=== PATIENT | male | born 1950 | race Caucasian/White ===

== ENCOUNTER 2021-05-26 00:54 | Day surgery (SDC) | payer MEDICARE, SELFPAY ==
[2021-05-18 12:48] VITALS: BMI 20.8
--- NOTE | 2021-05-18 13:02 | PC.NURSE ---
Medical hx and home medications given to me by the pt and his brother Ellis.
[2021-05-26 07:47] VITALS: BP 121/79; PULSE 93; RESP 20; TEMP 37.2; O2SAT 95
[2021-05-26] MEDS: LACTATED RINGERS 1,000 ML 150 ML IV CONT (07:58)
--- NOTE | 2021-05-26 08:02 | WPDANESEPPF ---
Anes - Initial Pre Proc Eval Procedure: Operation Date: 05/26/21 09:00 Proposed Procedures p Screening Colonoscopy - Curt Hinkle MD Date/Time: 05/26/21 08:02 Surgeon: Curt Hinkle MD Pre Op Diagnosis: neoplasm screening Patient Data Age: 70 Gender: M Height: 1.78 m Weight: 66.7 kg Last Vital Signs Temp 37.2 C 05/26/21 07:47 Pulse 93 05/26/21 07:47 Resp 20 05/26/21 07:47 BP 121/79 05/26/21 07:47 Pulse Ox 95 05/26/21 07:47 Allergies Allergy/AdvReac Type Severity Reaction Status Date / Time No Known Allergies Allergy Unknown Verified 05/26/21 07:46 Home Medications Medication Instructions Recorded Confirmed Type clorazepate dipotassium 3.75 mg 3.75 mg PO TID 08/20/19 05/18/21 History tablet fluphenazine HCl 5 mg tablet 5 mg PO TID 08/20/19 05/18/21 History albuterol sulfate 90 mcg/actuation 1 puff INHALATION Q4H PRN #6.7 gm 02/26/20 05/18/21 Rx aerosol inhaler atorvastatin 10 mg tablet 10 mg PO QHS #90 tablet 06/02/20 05/18/21 Rx phenytoin sodium extended 100 mg 100 mg PO TID #270 cap 03/02/21 05/26/21 Rx capsule fluticasone furoate 100 1 inh INHALATION DAILY #60 ea 04/13/21 05/18/21 Rx mcg-vilanterol 25 mcg/dose inhalation powder aspirin [Adult Aspirin] 81 mg PO DAILY 05/18/21 05/18/21 History glucosamine sulfate [Glucosamine] 1,000 mg PO DAILY 05/18/21 05/18/21 History multivit with min-folic acid 1 tablet PO DAILY 05/18/21 05/18/21 History [Adult Multivitamin Extra VitD3] Patient hx anesthesia problems: none Family hx anesthesia problems: none Results Review: All pre-operative results and documents have been reviewed as part of the pre-operative evaluation. [facility] Past Medical History Medical History COPD (chronic obstructive pulmonary disease) Dyslipidemia Impaired mental alertness Schizophrenia Seizure disorder Tobacco dependence Surgical History Surgical History 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 History of hemorrhoidectomy (~2013) 2013 History of hernia repair (Unknown) History of right inguinal hernia repair 2008 Social History Social History Smoking packs per day: 1 Smoking cigarettes per day: 20.0 Years smoked: 40 Smoking pack-years: 40.00 Smoking status: Current every day smoker Tobacco type: cigarettes Alcohol intake: never Substance use: never Substance use type: does not use Living arrangements: with family Spiritual care concerns: No Anes - Eval Final PreProcedure Day of Procedure 05/26/21 08:02 Patient weight: normal Heart: regular rate and rhythm Lungs: decreased breath sounds Airway: Mallampati scale class III Neurological: other (alert) Last oral intake: >/= 8 hours ASA classification: III Emergent: no Anesthetic plan: proceed Anesthesia type and monitoring: general GIVS and standard monitoring Results Review: All pre-operative results and documents have been reviewed as part of the pre-operative evaluation. Informed Consent: The patient's anesthetic plan and its attendant risks and benefits were discussed with the patient/family/POA. Questions were solicited and answers provided to the satisfaction of the patient/family/POA.
--- NOTE | 2021-05-26 09:06 | PM.HPGS ---
History of Present Illness History of Present Illness Consent: Risks, benefits, and alternatives have been discussed and questions answered. Patient agrees to proceed with procedure. Chief complaint: neoplasm screening Narrative: Everardo Diaz is a 70 year old male here because is due to have another colonoscopy. Review of Systems Constitutional: Constitutional: Denies headache(s) and Denies weakness Eyes: Eyes: Denies blurry vision ENT: Reports Normal hearing present, Denies headache(s) and Denies neck pain Cardiovascular: Cardiovascular: Denies chest pain and Denies dyspnea Respiratory: Respiratory: Denies dyspnea Gastrointestinal: Gastrointestinal: Reports no additional gastrointestinal complaints Genitourinary: Genitourinary: Denies dysuria Musculoskeletal: Musculoskeletal: Denies neck pain Integumentary/Breasts: Skin/Breast: Denies dry skin Neurologic: Reports Normal hearing present, Denies headache(s) and Denies weakness Psychiatric: Psychiatric: Denies anxiety Endocrine: Endocrine: Denies change in body appearance Hematologic/Lymphatic: Hematologic/Lymphatic: Denies easy bleeding Allergic/Immunologic: Allergic/Immunologic: Denies urticaria PMF Past Medical History Medical History (Updated 05/26/21 @ 09:06 by Curt Hinkle MD) Colon cancer screening COPD (chronic obstructive pulmonary disease) Dyslipidemia Impaired mental alertness Schizophrenia Seizure disorder Tobacco dependence Surgical History Surgical History 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 History of hemorrhoidectomy (~2013) 2013 History of hernia repair (Unknown) History of right inguinal hernia repair 2008 Social History Social History Smoking packs per day: 1 Smoking cigarettes per day: 20.0 Years smoked: 40 Smoking pack-years: 40.00 Smoking status: Current every day smoker Tobacco type: cigarettes Alcohol intake: never Substance use: never Substance use type: does not use Living arrangements: with family Spiritual care concerns: No Meds Home Medications and Allergies Home Medications Medication Instructions Recorded Confirmed Type clorazepate dipotassium 3.75 mg 3.75 mg PO TID 08/20/19 05/18/21 History tablet fluphenazine HCl 5 mg tablet 5 mg PO TID 08/20/19 05/18/21 History albuterol sulfate 90 mcg/actuation 1 puff INHALATION Q4H PRN #6.7 gm 02/26/20 05/18/21 Rx aerosol inhaler atorvastatin 10 mg tablet 10 mg PO QHS #90 tablet 06/02/20 05/18/21 Rx phenytoin sodium extended 100 mg 100 mg PO TID #270 cap 03/02/21 05/26/21 Rx capsule fluticasone furoate 100 1 inh INHALATION DAILY #60 ea 04/13/21 05/18/21 Rx mcg-vilanterol 25 mcg/dose inhalation powder aspirin [Adult Aspirin] 81 mg PO DAILY 05/18/21 05/18/21 History glucosamine sulfate [Glucosamine] 1,000 mg PO DAILY 05/18/21 05/18/21 History multivit with min-folic acid 1 tablet PO DAILY 05/18/21 05/18/21 History [Adult Multivitamin Extra VitD3] Allergies Allergy/AdvReac Type Severity Reaction Status Date / Time No Known Allergies Allergy Unknown Verified 05/26/21 07:46 Vital Signs Vital Signs - 24 hr 05/26/21 07:47 Temperature 98.9 F Pulse Rate 93 Respiratory Rate 20 Blood Pressure 121/79 Pulse Oximetry 95 Exam Const: General: comfortable and no acute distress HENMT: General nose exam: Normal nares present Eyes: General: appearance normal, both eyes and all related structures Neck: Neck: no JVD Resp: Auscultation: clear to auscultation bilaterally Cardio: Rate: regular rate Rhythm: regular rhythm GI: Inspection: non-distended GI Palp: Yes Soft to palpation Skin: General skin exam: normal color Neuro: General: gait normal Speech: normal speech Extrem: General: normal to inspection Psych: Mental Status: mental status vincent
[2021-05-26 09:31] VITALS: BP 105/68; PULSE 78; RESP 20; O2SAT 98
[2021-05-26 09:41] VITALS: BP 99/67; PULSE 81; RESP 20; O2SAT 100
[2021-05-26 09:51] VITALS: BP 125/77; PULSE 82; RESP 22; O2SAT 100
== END 2021-05-26 10:05 | disposition home or self-care (01) ==
PROVIDERS: PCP Family Medicine; Visit Provider Internal Medicine Gastroenterology
PROC: 0DJD8ZZ Inspection of Lower Intestinal Tract, Via Natural or Artificial Opening Endoscopic (ICD-10-PCS; CPT 45378; principal; 2021-05-26 09:00)
DX: Z12.11 Encounter for screening for malignant neoplasm of colon (principal); D12.3 Benign neoplasm of transverse colon; K57.30 Diverticulosis of large intestine without perforation or abscess without bleeding; K64.8 Other hemorrhoids; J44.9 Chronic obstructive pulmonary disease, unspecified; E78.5 Hyperlipidemia, unspecified; F20.9 Schizophrenia, unspecified; G40.909 Epilepsy, unspecified, not intractable, without status epilepticus; Z79.51 Long term (current) use of inhaled steroids; Z79.82 Long term (current) use of aspirin; F17.210 Nicotine dependence, cigarettes, uncomplicated
CPT/HCPCS: 45385; 88305; J2704; J7120

== ENCOUNTER → 2021-10-13 13:06 | Outpatient (CLI) | payer MEDICARE, SELFPAY ==
--- NOTE | ~2021-10-13 | CT_ITS ---
EXAMINATION: CT lung screening DATE: 10/13/2021 13:23 INDICATION: Personal history of tobacco dependence. Lung cancer screening. TECHNIQUE: Computed tomography (CT) of the chest was performed without intravenous contrast. The dose -length product was 101.27 mGy-cm. Automated exposure control and iterative reconstruction technique were employed. COMPARISON: CT dated 01/12/2017 FINDINGS: There is atherosclerosis of the aorta and coronary arteries. Moderate size hiatal hernia. N o thoracic lymphadenopathy. No significant pleural or pericardial effusion. Upper abdomen is unremark able. There is emphysema. There are small 1-2 mm nodules in the upper lobes. No pneumothorax. No foca l airspace consolidation. No acute osseous abnormality. IMPRESSION: 1. Lung-RADS category 2: Benign appearance or behavior. Continue annual screening with noncontrast lo w-dose chest CT in 12 months. Reviewed, dictated and finalized at location A. IMPRESSION: 1. Lung-RADS category 2: Benign appearance or behavior. Continue annual screeni ng with noncontrast low-dose chest CT in 12 months.
== END ==
PROVIDERS: PCP Family Medicine; Visit Provider Family Medicine
DX: Z12.2 Encounter for screening for malignant neoplasm of respiratory organs (principal); Z87.891 Personal history of nicotine dependence
CPT/HCPCS: 71271

== ENCOUNTER 2022-03-09 16:23 | Outpatient (CLI) | payer MEDICARE, SELFPAY ==
--- NOTE | ~2022-03-09 | US_ITS ---
EXAMINATION: US aorta [facility] DATE: 03/10/2022 11:09 STOVE CARRIAGE OPERATOR INDICATION: Screening for cardiovascular disorders TECHNIQUE: Grayscale, color Doppler, and pulsed Doppler images of the aorta and common iliac arteries were obtained. COMPARISON: None. FINDINGS: There is atherosclerosis. The proximal aorta measures 2.8 cm greatest sagittal dimension. The mid aor ta measures 2.5 cm greatest sagittal dimension. The distal aorta measures 1.9 cm greatest sagittal di mension. The right common internal iliac artery measures 1.2 cm. The left common iliac artery measure s 1.2 cm. IMPRESSION: 1. Moderate atherosclerosis without evidence for aortic aneurysm. Reviewed, dictated and finalized at location A. E CARRIAGE OPERATOR
== END 2022-03-09 16:24 | disposition home or self-care (01) ==
PROVIDERS: PCP Family Medicine; Visit Provider Family Medicine
DX: Z13.6 Encounter for screening for cardiovascular disorders (principal); I70.90 Unspecified atherosclerosis; Z87.891 Personal history of nicotine dependence
CPT/HCPCS: 76706

== ENCOUNTER 2023-09-06 13:21 | Outpatient (CLI) | payer MEDICARE, SELFPAY ==
--- NOTE | ~2023-09-06 | CT_ITS ---
CT Scan of the Chest without Contrast: Clinical Indication: Lung cancer screening, nicotine dependence Technique: Contiguous sections were acquired throughout the chest without intravenous contrast. Dose reduction technique was used on this scan by utilizing automated exposure control and iterative recon struction technique. The dose-length product (DLP) was 103.20 mGy-cm. COMPARISON: 10/13/2021 Findings: There is no evidence of any significant mediastinal, hilar or axillary lymphadenopathy. The mediastin al soft tissues appear normal. There is no evidence of pleural or pericardial effusion. The lungs are clear. No pulmonary nodules or infiltrates are noted. Images through the upper abdomen reveal small to small moderate hiatal hernia. Impression: Lung RADS 1: Negative. 12 month follow-up screening CT advised. Reviewed, dictated and finalized at [facility]. Impression: Lung RADS 1: Negative. 12 month follow-up screening CT advised.
== END 2023-09-06 13:22 | disposition home or self-care (01) ==
PROVIDERS: PCP Family Medicine; Visit Provider Physician Assistant
DX: Z12.2 Encounter for screening for malignant neoplasm of respiratory organs (principal); Z87.891 Personal history of nicotine dependence
CPT/HCPCS: 71271

== ENCOUNTER 2023-12-09 12:08 | Outpatient (NON) | payer MEDICARE, SELFPAY ==
[2023-12-09 12:52] LABS: Add Urine Microscopic? YES; Appearance Urine Turbid (Clear); Bacteria Urine None Seen /hpf; Bilirubin Urine Negative (Negative); Blood Urine Negative (Negative); Color Urine Yellow (Yellow); Glucose Urine UA Negative (Negative); Ketones Urine Negative (Negative); Leukocyte Esterase Ur Negative LEU/UL (Negative); Nitrate Urine Negative (Negative); Non Pathogenic Casts 0-2; Protein Urine Negative (Negative); RBC Urine 0-2 /hpf (0-2); Specific Grav Ur 1.015 (1.001-1.035); Squamous Epithelial Cell Urine None Seen /hpf (Few); Urobilinogen Urine 0.2 mg/dL (<2.0); WBC Urine 0-5 /hpf (0-3); pH Urine 7.5 (5.0-9.0)
== END 2023-12-09 12:09 | disposition home or self-care (01) ==
LOC: ANHLAB 12:11
PROVIDERS: PCP Family Medicine; Visit Provider Family Medicine
DX: R31.9 Hematuria, unspecified (principal)
CPT/HCPCS: 81001

== ENCOUNTER 2024-05-29 20:01 | Inpatient (IN) | payer MEDICARE, SELFPAY ==
[2024-05-29] VITALS (17 sets, daily range): BP systolic 117; BP diastolic 71; PULSE 94–117; RESP 21–42; TEMP 37; O2SAT 83–100
--- NOTE | ~2024-05-29 | XR_ITS ---
EXAMINATION: XR barium swallow modified DATE: 06/01/2024 15:09 INDICATION: Aspiration. TECHNIQUE: The patient was given barium-containing material of multiple consistencies to swallow by t he speech pathologist while I performed fluoroscopy. Fluoroscopy exposure time was 1.2 minutes. The n umber of fluoroscopy images saved to the PACS was 1. Dose-area product was 0.717 Gy-cm^2. FINDINGS: There is reduced tongue base retraction and laryngeal penetration. IMPRESSION: 1. Laryngeal penetration. 2. Please refer to the speech therapy report for recommendations. Reviewed, dictated and finalized at location A. [place] PLANNING MANAGER
--- NOTE | ~2024-05-29 | CT_ITS ---
CT Scan of the Chest without Contrast: Clinical Indication: COPD, hypoxia Technique: Contiguous sections were acquired throughout the chest without intravenous contrast. Dose reduction technique was used on this scan by utilizing automated exposure control and iterative recon struction technique. The dose-length product (DLP) was 167.89 mGy-cm. COMPARISON: 09/06/2023 Findings: There is no evidence of any significant mediastinal, hilar or axillary lymphadenopathy. The mediastin al soft tissues appear normal. There is no evidence of pleural or pericardial effusion. There is pneumobilia. There multifocal areas of tree-in-bud opacity and focal scattered areas of slig htly more confluent consolidation in the left upper lobe, compatible with infectious/inflammatory pro cess. Images through the upper abdomen reveal [id number] hiatal hernia. There are acute fractures of the right eighth and ninth ribs. Impression: Scattered areas of tree-in-bud opacity with several slightly more confluent areas of consolidation le ft upper lobe. Findings are compatible small airways infection with superimposed patchy left upper lo be pneumonia. Mild emphysema. Acute fractures of the right eighth and ninth ribs. Reviewed, dictated and finalized at [facility]. ERCIAL INTELLIGENCE MANAGER Impression: Scattered areas of tree-in-bud opacity with several slightly more confluent are as of consolidation left upper lobe. Findings are compatible small airways infe ction with superimposed patchy left upper lobe pneumonia. Mild emphysema. Acute fractures of the right eighth and ninth ribs.
--- NOTE | ~2024-05-29 | XR_ITS ---
EXAMINATION: XR chest 1V portable Exam Date/Time: 05/29/2024 20:36 HOME CONNECT LPN HISTORY: shortness of breath Comparison: 07/17/2008; CT lung screening 09/06/2023. RESULT: Lines, tubes, and devices: None. Lungs and pleura: Mild emphysematous/senescent change, otherwise clear. Cardiomediastinal silhouette: Stable. Other: No acute osseous or upper abdominal finding. IMPRESSION: No acute cardiopulmonary process. Reviewed, dictated and finalized at location K. CONNECT LPN
--- NOTE | ~2024-05-29 | US_ITS ---
EXAMINATION: US venous doppler [facility] DATE: 05/31/2024 11:56 INDICATION: Lower limb spasms. TECHNIQUE: Grayscale ultrasound images without and with compression and Doppler ultrasound images of the bilateral lower extremity veins were obtained. COMPARISON: None. FINDINGS: The visualized portions of right common femoral vein, profunda (deep) femoral vein, femoral vein, pop liteal vein, peroneal veins, posterior tibial veins, and greater saphenous vein outflow are patent. The visualized portions of left common femoral vein, profunda femoral vein, femoral vein, popliteal v ein, peroneal veins, posterior tibial veins, and greater saphenous vein outflow are patent. IMPRESSION: 1. No deep venous thrombosis. Reviewed, dictated and finalized at location A. [place] LAB TECHNICIAN
--- NOTE | 2024-05-29 20:29 | ECG_ITS ---
Test Date: 2024-05-29 21:27:52 Measurements Intervals [place] Rate: 90 P: 85 DE: 164 QRS: 83 QRSD: 76 T: 119 QT: 362 QTc: 445 Interpretive Statements SINUS RHYTHM DELAYED PRECORDIAL R/S TRANSITION NONSPECIFIC ST-T WAVE ABNORMALITY- HIGH LATERAL LEADS BASELINE ARTIFACT- I, II, III, AVR, AVL, AVF, V1-V6 BORDERLINE ECG No previous ECG available for comparison Electronically Signed On 05-30-2024 07:10:15 COUNTER STITCHER by Francisco Carranza D.O.
[2024-05-29 20:43] LABS: Basophils Percent Auto 0.3 % (0.2-1.2); Eosinophils Absolute Auto 0.1 K/mm3 (0-0.3); Eosinophils Percent Auto 0.8 % (0-4.4); Hematocrit 43.2 % (42.0-52.0); Hemoglobin 14.1 g/dL (14.0-18.0); Immature Granulocyte Absolute 0.06 K/mm3 (0.00-0.031); Immature Granulocyte Percent A 0.6 % (0-0.5); Lymphocytes Absolute Auto 1.22 K/mm3 (0.9-3.2); Lymphocytes Percent Auto 12.9 % (18.3-44.2); Mean Corpuscular HGB Conc 32.6 g/dl (32-36); Mean Corpuscular Hemoglobin 32.3 pg (26-34); Mean Corpuscular Volume 99.1 fl (80-100); Mean Platelet Volume 9.1 fl (7.4-10.4); Monocytes Absolute Auto 1.3 K/mm3 (0.1-0.6); Monocytes Percent Auto 13.4 % (2.6-8.5); Neutrophils Absolute Auto 6.8 K/mm3 (1.3-6.7); Platelet Count Result 446 k/mm3 (150-375); Red Blood Count 4.36 M/mm3 (4.6-6.20); Red Cell Distribution Width 12.6 % (11.5-14.5); White Blood Count 9.5 K/mm3 (4.5-10.0)
[2024-05-29 20:51] LABS: Alanine Aminotransferase 38 U/L (6-50); Albumin Level 3.5 g/dL (3.5-5.1); Alkaline Phosphatase 101 U/L (38-126); Anion Gap 7 mmol/L (4-12); Aspartate Amino Transferase 41 U/L (17-59); Bilirubin,Total 0.5 mg/dL (0.2-1.3); Blood Urea Nitrogen 21 mg/dL (9-20); Calcium 8.8 mg/dL (8.4-10.2); Carbon Dioxide 35 mmol/L (22-30); Chloride 102 mmol/L (98-107); Estimated CRCL calculation 59 ml/min; Estimated Glomerular Filt Rate > 60; Glucose 149 mg/dL (65-110); Potassium 4.2 mmol/L (3.4-5.0); Sodium 144 mmol/L (137-145)
[2024-05-29 21:16] LABS: Influenza A QL RT-PCR Positive (Negative); Influenza B QL RT-PCR Negative (Negative); RSV RNA, RT-PCR Negative (Negative); SARS-CoV-2 RNA PCR Negative (Negative)
--- NOTE | 2024-05-29 21:52 | ED.GENADULT ---
HPI - General Adult General Chief complaint: Shortness of Breath/Dyspnea Stated complaint: SOB, weak, cough and congestion Time Seen by Provider: 05/29/24 20:26 History of Present Illness HPI narrative: 73-year-old male with history heavy smoking, 1-2 packs a day presents to the emergency department for evaluation for worsening shortness of breath over the last few days. Family states that the shortness of breath worsened today. Upon arrival emergency department patient was saturating 84% on room air. Patient is saturating better on 2 L. patient does have tachypnea. Patient denies any chest pain. Patient did have a fall approximately 1 week ago and injured his right ribs. Family states patient did just complete a course of steroids and a Z-Ankush. Related Data Home Medications ?Medication ?Instructions ?Recorded ?Confirmed ?Last Taken ?Type clorazepate dipotassium 3.75 mg 3.75 mg PO TID 08/20/19 05/29/24 05/29/24 History tablet fluphenazine HCl 5 mg tablet 5 mg PO TID 08/20/19 05/29/24 05/29/24 History aspirin 81 mg tablet 81 mg PO DAILY 05/18/21 05/29/24 05/29/24 History glucosamine sulfate 500 mg tablet 1,000 mg PO DAILY 05/18/21 05/29/24 05/29/24 History (Glucosamine) multivitamin with minerals-folic 1 tablet PO DAILY 05/18/21 05/29/24 05/29/24 History acid 200 mcg chewable tablet vitamin K2 45 mcg capsule 45 mcg PO DAILY 03/02/23 05/29/24 05/29/24 History Allergies Allergy/AdvReac Type Severity Reaction Status Date / Time No Known Allergies Allergy Unknown Verified 05/29/24 20:02 Review of Systems Review of Systems: All systems reviewed & are unremarkable except as noted in HPI and below PMFSH Past Medical History Medical History Elevated PSA Impaired mental alertness Dyslipidemia Schizophrenia Tobacco dependence Seizure disorder COPD (chronic obstructive pulmonary disease) Surgical History Surgical History History of right inguinal hernia repair 2008 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 History of hemorrhoidectomy (~2013) 2013 History of hernia repair (Unknown) Social History Social History Smoking packs per day: 1 Smoking cigarettes per day: 20.0 Years smoked: 55 Smoking pack-years: 55.00 Smoking status: Current every day smoker Tobacco type: cigarettes Alcohol intake: never Substance use: never Substance use type: does not use Lack of Transportation: No Lack of Food: Never True Current Housing: I Have Housing Concerned About Future Housing: No Difficulty Paying Gas/Electric Bills: No Difficulty Paying for Meds: No Currently Unemployed: No Education: High School Diploma/GED Difficulty w/ Childcare or Family Care: No Living arrangements: with family Occupation/Education: unemployed Gender identity (if verbalized by the patient): Male Spiritual care concerns: No Exam Narrative: APPEARANCE: Ill-appearing HEAD: normocephalic, atraumatic. EYES: PERRLA/EOMI, conjunctivae clear. NOSE: Normal no drainage EARS:TMS clear with good light reflex. THROAT: Pharynx clear, no exudate. NECK: Supple. No adenopathy, no masses. RESPIRATORY: Wheezing in all lung clarke CARDIOVASCULAR: Regular rate and rhythm without murmurs rubs or gallops. ABDOMINAL: Soft, nontender, nondistended, normal bowel sounds MUSCULOSKELETAL: Moves all extremities. Strength/ROM intact, No edema, No calf tenderness. NEURO: Alert. Cranial nerves II through XII intact. Grossly intact SKIN: Warm, dry. Normal Color Course Vital Signs Vital signs: Vital Signs Temperature 98.6 F 05/29/24 20:10 Pulse Rate 104 H 05/29/24 20:10 Respiratory Rate 21 H 05/29/24 20:10 Blood Pressure 117/71 05/29/24 20:10 Pulse Oximetry 84 L 05/29/24 20:10 Temperature 98.1 F 05/30/24 01:09 Pulse Rate 117 H 05/30/24 06:28 Respiratory Rate 27 H 05/30/24 06:28 Blood Pressure 160/100 H 05/30/24 03:19 Pulse Oximetry 92 05/30/24 06:28 Oxygen Delivery BiPAP 05/30/24 06:28 Oxygen Flow Rate 4 05/29/24 20:22 Medical Decision Making MDM Narrative Medical decision making narrative: 73-year-old male with history of heavy smoking with no oxygen requirement at home presents emergency department today for complaint worsening shortness of breath. Patient was 84% on room air but did improve on 4 L. patient was treated with 5 mg of nebulized albuterol and this did open up his lungs actually worsened the son of his breathing. Patient was treated with a 2nd 5 mg of nebulized albuterol and an ABG did show that he had a pCO2 of 56.9. Patient was placed on BiPAP 14 of 7 and was able a titrated down to 24% FiO2. On re-evaluation patient reports he does feel improved and patient's work of breathing has improved. Patient is positive for influenza a, chest x-ray shows no acute cardiopulmonary abnormality but CT scan was ordered. CT scan did show a rib fractures but these are not acute. Differential Diagnosis Differential Diagnosis: COVID, RSV, influenza, pneumonia, COPD Vital Signs Vital Signs: Vital Signs Temperature 98.6 F 05/29/24 20:10 Pulse Rate 104 H 05/29/24 20:10 Respiratory Rate 21 H 05/29/24 20:10 Blood Pressure 117/71 05/29/24 20:10 Pulse Oximetry 84 L 05/29/24 20:10 Temperature 98.1 F 05/30/24 01:09 Pulse Rate 117 H 05/30/24 06:28 Respiratory Rate 27 H 05/30/24 06:28 Blood Pressure 160/100 H 05/30/24 03:19 Pulse Oximetry 92 05/30/24 06:28 Oxygen Delivery BiPAP 05/30/24 06:28 Oxygen Flow Rate 4 05/29/24 20:22 Lab Data Lab results reviewed: Yes I reviewed the patient's lab results. 05/29/24 20:31 05/30/24 01:59 Labs: Lab Results 05/29/24 05/29/24 05/29/24 Range/Units 20:21 20:31 23:12 WBC 9.5 (4.5-10.0) K/mm3 RBC 4.36 L (4.6-6.20) M/mm3 Hgb 14.1 (14.0-18.0) g/dL Hct 43.2 (42.0-52.0) % MCV 99.1 (80-100) fl MCH 32.3 (26-34) pg MCHC 32.6 (32-36) g/dl RDW 12.6 (11.5-14.5) % Plt Count 446 H (150-375) k/mm3 MPV 9.1 (7.4-10.4) fl Immature Gran % (Auto) 0.6 H (0-0.5) % Neut % (Auto) 72.0 (45.5-73.1) % Lymph % (Auto) 12.9 L (18.3-44.2) % [place] % (Auto) 13.4 H (2.6-8.5) % Eos % (Auto) 0.8 (0-4.4) % Baso % (Auto) 0.3 (0.2-1.2) % Lymph # (Auto) 1.22 (0.9-3.2) K/mm3 [place] # (Auto) 1.3 H (0.1-0.6) K/mm3 Eos # (Auto) 0.1 (0-0.3) K/mm3 Baso # (Auto) 0.0 (0.0-0.1) K/mm3 Abs Immat Gran (auto) 0.06 H (0.00-0.031) K/mm3 Absolute Neuts (auto) 6.8 H (1.3-6.7) K/mm3 Absolute Nucleated RBC 0.000 (0.0-0.012) K/mm3 Nucleated RBC % 0.0 (0.0-0.2) % Methemoglobin 0.1 (0-1.5) %THb Sodium 144 (137-145) mmol/L Potassium 4.2 (3.4-5.0) mmol/L Chloride 102 (98-107) mmol/L Carbon Dioxide 35 H (22-30) mmol/L Anion Gap 7 (4-12) mmol/L BUN 21 H (9-20) mg/dL Creatinine 0.91 (0.7-1.3) mg/dL Estim Creat Clear Calc 59 ml/min Estimated GFR > 60 (59 - ) Glucose 149 H (65-110) mg/dL Lactic Acid (0.7-2.0) mmol/L Calcium 8.8 (8.4-10.2) mg/dL Total Bilirubin 0.5 (0.2-1.3) mg/dL AST 41 (17-59) U/L ALT 38 (6-50) U/L Alkaline Phosphatase 101 (38-126) U/L NT-Pro-B Natriuret Pep 740 H (19.9-100) pg/mL Total Protein 7.0 (6.3-8.2) g/dL Albumin 3.5 (3.5-5.1) g/dL Nasal MRSA (PCR) Not detected (NOT DETECTE) Influenza A (RT-PCR) Positive A (Negative) Influenza B (RT-PCR) Negative (Negative) RSV (RT-PCR) Negative (Negative) SARS-CoV-2 RNA (RT-PCR) Negative (Negative) 05/30/24 Range/Units 01:59 WBC (4.5-10.0) K/mm3 RBC (4.6-6.20) M/mm3 Hgb (14.0-18.0) g/dL Hct (42.0-52.0) % MCV (80-100) fl MCH (26-34) pg MCHC (32-36) g/dl RDW (11.5-14.5) % Plt Count (150-375) k/mm3 MPV (7.4-10.4) fl Immature Gran % (Auto) (0-0.5) % Neut % (Auto) (45.5-73.1) % Lymph % (Auto) (18.3-44.2) % [place] % (Auto) (2.6-8.5) % Eos % (Auto) (0-4.4) % Baso % (Auto) (0.2-1.2) % Lymph # (Auto) (0.9-3.2) K/mm3 [place] # (Auto) (0.1-0.6) K/mm3 Eos # (Auto) (0-0.3) K/mm3 Baso # (Auto) (0.0-0.1) K/mm3 Abs Immat Gran (auto) (0.00-0.031) K/mm3 Absolute Neuts (auto) (1.3-6.7) K/mm3 Absolute Nucleated RBC (0.0-0.012) K/mm3 Nucleated RBC % (0.0-0.2) % Methemoglobin (0-1.5) %THb Sodium (137-145) mmol/L Potassium (3.4-5.0) mmol/L Chloride (98-107) mmol/L Carbon Dioxide (22-30) mmol/L Anion Gap (4-12) mmol/L BUN (9-20) mg/dL Creatinine 0.74 (0.7-1.3) mg/dL Estim Creat Clear Calc 72 ml/min Estimated GFR > 60 (59 - ) Glucose (65-110) mg/dL Lactic Acid 1.2 (0.7-2.0) mmol/L Calcium (8.4-10.2) mg/dL Total Bilirubin (0.2-1.3) mg/dL AST (17-59) U/L ALT (6-50) U/L Alkaline Phosphatase (38-126) U/L NT-Pro-B Natriuret Pep (19.9-100) pg/mL Total Protein (6.3-8.2) g/dL Albumin (3.5-5.1) g/dL Nasal MRSA (PCR) (NOT DETECTE) Influenza A (RT-PCR) (Negative) Influenza B (RT-PCR) (Negative) RSV (RT-PCR) (Negative) SARS-CoV-2 RNA (RT-PCR) (Negative) ABG Data ABG results: 05/29/24 23:12 Puncture Site Left radial ABG pH 7.323 L ABG pCO2 56.9 H ABG pO2 73.5 L ABG PO2/FiO2 Ratio 2.63 ABG HCO3 28.9 H ABG O2 Saturation 93.4 L ABG O2 Content 16.6 ABG Base Excess 1.7 A-a Gradient 59.0 Oxyhemoglobin 92.6 Carboxyhemoglobin 0.6 Reduced Hemoglobin 6.7 H Total Hemoglobin 12.7 O2 Delivery Device Nasal cannula O2 Liters/Min 2.0 FiO2 28 Imaging Data Radiologist's impression: Overnight read CT chest without contrast Impression: Nondisplaced fractures of the right 8th and 9th ribs. Minimal patchy consolidations at the lung bases and inferior left upper lobe concerning for mild pneumonia. Critical Care Time Critical Care Time Critical Care Time: Yes Total Critical Care Time: 35 Discharge Plan Discharge Clinical Impression: Pneumonia, Closed rib fracture, Influenza A COPD (chronic obstructive pulmonary disease) Qualifiers: COPD type: unspecified COPD Qualified Code(s): J44.9 - Chronic obstructive pulmonary disease, unspecified Patient Disposition: Still a Patient Condition: Serious
[2024-05-29] MEDS: ALBUTEROL SULFATE NEB 2.5 MG/3 ML INH 5 MG INHALATION ×2 (22:04→23:10)
[2024-05-29] MEDS: SODIUM CHLORIDE 0.9% IV 1,000 ML 999 ML IV CONT (22:17)
--- NOTE | 2024-05-29 22:58 | PC.NURSE ---
ED respiratory contacted per EDP Dr. Diaz orders for additional breathing tx at this time.
[2024-05-29] MEDS: CEFEPIME 2 GM/NS 50 ML 2 GM/50 ML BAG IVPB (22:59)
[2024-05-29 23:23] LABS: Base Excess ABG 1.7 mEq/l (+/-2.0); Carboxyhemoglobin 0.6 % THb (0-2.0); Fractional Inspired Oxygen 28 %; HCO3 ABG 28.9 mEq/l (22.0-26.0); Methemoglobin ABG 0.1 %THb (0-1.5); Oxygen Content ABG 16.6 %vol (16.0-22.0); Oxygen Saturation ABG 93.4 % (95.0-100.0); Oxyhemoglobin 92.6 % THb (90.0-100.0); PCO2 ABG 56.9 mmHg (35.0-45.0); PO2 ABG 73.5 mmHg (80.0-100.0); PO2 FiO2 Ratio Arterial Blood 2.63 %; Reduced Hemoglobin 6.7 %THb (0-5.0); Total Hemoglobin 12.7 g/dL (12.0-18.0); pH ABG 7.323 (7.350-7.450)
[2024-05-29 23:25] LABS: Device NASAL CANNULA; Modified Allen's Test Pass; Site Drawn LEFT RADIAL
[2024-05-29] MEDS: VANCOMYCIN 1,750 MG/NS 500 ML 1,750 MG/500 ML BAG 250 MG IVPB (23:25)
[2024-05-30] VITALS (46 sets, daily range): BP systolic 102–160; BP diastolic 67–100; PULSE 83–117; RESP 16–40; TEMP 36.4–36.8; O2SAT 91–100; BMI 19.8
[2024-05-30 00:05] LABS: NT Pro B Type Natriuretic Pept 740 pg/mL (19.9-100)
[2024-05-30 00:27] LABS: MRSA (PCR) NOT DETECTED (NOT DETECTE)
[2024-05-30] MEDS: methylPREDNISolone SOD SUCC 125 MG VIAL IV PUSH (02:35)
--- NOTE | 2024-05-30 02:45 | PC.NURSE ---
pt placed on hospital bed at this time. No distress noted.
[2024-05-30 02:48] LABS: Estimated CRCL calculation 72 ml/min; Estimated Glomerular Filt Rate > 60; Lactic Acid Reflex 1.2 mmol/L (0.7-2.0)
[2024-05-30] MEDS: IPRATROPIUM 0.5 MG/ALBUTEROL SULFATE 2.5 MG AMPUL.NEB 3 ML INHALATION ×7 (04:25→22:52)
[2024-05-30] MEDS: ALBUTEROL SULFATE NEB 2.5 MG/3 ML INH INHALATION ×3 (07:34→19:50)
--- NOTE | 2024-05-30 08:27 | P.HP_ITS ---
H&P: HPI History of Present Illness Date/Time: 05/30/24 08:27 Chief Complaint: Shortness of Breath Narrative: this is a 73-year-old male with medical history of Seizure disporder, Schizophrenia, impaired mental alertness, COPD with heavy smoking with no oxygen requirement at home that presented emergency department for complaint worsening shortness of breath. Patient reports that he had a cough, but he denies any fever chills. He denies any nausea, vomiting or diarrhea any chest pain. On arrival to the ER patient vital signs noted temp 98.6, blood pressure 117/71, pulse 104, resp 21, 84% on room air but did improve on 4 L. Emergency department workup noted ABG did show pH of 7.323, O2 73.5 HC03 28.9, PO2 93.4, and PCO2 of 56.9. Patient was placed on BiPAP 14 of 7 and was able a titrated down to 24% FiO2. White blood cell count was 9.5, hemoglobin 14.1, hematocrit 43.2, platelets 446. BNP 740, BUN 21 creatinine 0.91 with a GFR greater than 60. Patient is positive for influenza a, chest x-ray shows no acute cardiopulmonary abnormality but CT scan was ordered. CT chest noted Scattered areas of tree-in-bud opacity with several slightly more confluent areas of consolidation left upper lobe. Findings are compatible small airways infection with superimposed patchy left upper lobe pneumonia. Mild emphysema. Acute fractures of the right eighth and ninth ribs. Patient was treated with 5 mg of nebulized albuterol and this did open up his lungs, but his sounds of breathing did appear to worsen. Patient was treated with a 2nd 5 mg of nebulized albuterol. Patient was started on cefepime and vancomycin for the pneumonia, patient was given Solu-Medrol. The patient continued to tolerate the BiPAP well, showed some improvement, and was admitted for further management. 05/30/24-this a.m. patient remains on BiPAP, he is tolerating this well. He denies any fever chills, he denies any chest pain or nausea vomiting or diarrhea. He states he has always had a cough, he reports cough is nonproductive and worse than at home. He does state that his shortness of breath is somewhat better this morning. Review of Systems Review of Systems: All systems reviewed & are unremarkable except as noted in HPI and below Constitutional: Constitutional: Reports fatigue and Reports malaise Eyes: Eyes: Reports as per HPI ENT: Reports system reviewed and no additional complaints, except as documented Cardiovascular: Cardiovascular: Reports no additional cardiovascular complaints Respiratory: Respiratory: Reports as per HPI, Reports cough and Reports dyspnea Gastrointestinal: Gastrointestinal: Reports no additional gastrointestinal complaints Genitourinary: Genitourinary: Reports no additional male genitourinary complaints Musculoskeletal: Musculoskeletal: Reports no additional musculoskeletal complaints Integumentary/Breasts: Skin/Breast: Reports system reviewed and no additional complaints, except as docu Neurologic: Reports system reviewed and no additional complaints, except as documented Psychiatric: Psychiatric: Reports no additional psychiatric complaints Endocrine: Endocrine: Reports no additional endocrine complaints Hematologic/Lymphatic: Hematologic/Lymphatic: Reports no additional hematologic/lymphatic complaints Allergic/Immunologic: Allergic/Immunologic: Reports no additional allergic/immunologic complaints [facility] Past Medical History Medical History Elevated PSA Impaired mental alertness Dyslipidemia Schizophrenia Tobacco dependence Seizure disorder COPD (chronic obstructive pulmonary disease) Surgical History Surgical History History of right inguinal hernia repair 2008 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 History of hemorrhoidectomy (~2013) 2014 History of hernia repair (Unknown) Social History Social History Smoking packs per day: 1 Smoking cigarettes per day: 20.0 Years smoked: 55 Smoking pack-years: 55.00 Smoking status: Current every day smoker Tobacco type: cigarettes Alcohol intake: never Substance use: never Substance use type: does not use Lack of Transportation: No Lack of Food: Never True Current Housing: I Have Housing Concerned About Future Housing: No Difficulty Paying Gas/Electric Bills: No Difficulty Paying for Meds: No Currently Unemployed: No Education: High School Diploma/GED Difficulty w/ Childcare or Family Care: No Living arrangements: with family Occupation/Education: unemployed Gender identity (if verbalized by the patient): Male Spiritual care concerns: No Meds Home Medications and Allergies Home Medications ?Medication ?Instructions ?Recorded ?Confirmed ?Type clorazepate dipotassium 3.75 mg 3.75 mg PO TID 08/20/19 05/29/24 History tablet fluphenazine HCl 5 mg tablet 5 mg PO TID 08/20/19 05/29/24 History phenytoin sodium extended 100 mg 100 mg PO TID #270 caps 03/02/21 05/29/24 Rx capsule aspirin 81 mg tablet 81 mg PO DAILY 05/18/21 05/29/24 History glucosamine sulfate 500 mg tablet 1,000 mg PO DAILY 05/18/21 05/29/24 History (Glucosamine) multivitamin with minerals-folic 1 tablet PO DAILY 05/18/21 05/29/24 History acid 200 mcg chewable tablet vitamin K2 45 mcg capsule 45 mcg PO DAILY 03/02/23 05/29/24 History atorvastatin 10 mg tablet 10 mg PO QHS #90 tabs 05/19/23 05/29/24 Rx albuterol sulfate 90 mcg/actuation 1 - 2 puff inhalation Q4-6H PRN 12/02/23 05/29/24 Rx aerosol inhaler shortness of breath or wheezing #8.5 grams fluticasone furoate 200 1 inh inhalation DAILY #180 ea 03/15/24 05/29/24 Rx mcg-vilanterol 25 mcg/dose inhalation powder (Breo Ellipta) Allergies Allergy/AdvReac Type Severity Reaction Status Date / Time No Known Allergies Allergy Unknown Verified 05/29/24 20:02 Vital Signs Vital Signs - 24 hr 05/29/24 20:10 05/29/24 20:18 05/29/24 20:21 Temperature 98.6 F Pulse Rate 104 H 101 H Respiratory Rate 21 H Blood Pressure 117/71 Pulse Oximetry 84 L 83 L Oxygen Delivery Room Air Oxygen Flow Rate 05/29/24 20:22 05/29/24 20:44 05/29/24 20:45 Temperature Pulse Rate 96 97 Respiratory Rate 27 H 35 H Blood Pressure Pulse Oximetry 97 Oxygen Delivery Nasal Cannula Oxygen Flow Rate 4 05/29/24 22:04 05/29/24 22:05 05/29/24 22:15 Temperature Pulse Rate 96 94 94 Respiratory Rate 29 H 27 H 22 H Blood Pressure Pulse Oximetry 100 100 Oxygen Delivery Oxygen Flow Rate 05/29/24 22:19 05/29/24 22:30 05/29/24 22:48 Temperature Pulse Rate 94 97 112 H Respiratory Rate 28 H 26 H 22 H Blood Pressure Pulse Oximetry 100 98 Oxygen Delivery Oxygen Flow Rate 05/29/24 23:20 05/29/24 23:27 05/29/24 23:30 Temperature Pulse Rate 112 H 117 H 115 H Respiratory Rate 42 H 38 H 39 H Blood Pressure Pulse Oximetry 100 Oxygen Delivery Oxygen Flow Rate 05/29/24 23:35 05/29/24 23:35 05/29/24 23:59 Temperature Pulse Rate 94 116 H 117 H Respiratory Rate 40 H 42 H 29 H Blood Pressure Pulse Oximetry 100 100 97 Oxygen Delivery BiPAP Oxygen Flow Rate 05/30/24 00:00 05/30/24 00:38 05/30/24 00:58 Temperature Pulse Rate 115 H 114 H 111 H Respiratory Rate 37 H 30 H 40 H Blood Pressure Pulse Oximetry 96 97 96 Oxygen Delivery Oxygen Flow Rate 05/30/24 01:00 05/30/24 01:09 05/30/24 01:09 Temperature 98.1 F Pulse Rate 110 H 110 H Respiratory Rate 34 H 30 H Blood Pressure Pulse Oximetry 97 94 Oxygen Delivery Oxygen Flow Rate 05/30/24 01:12 05/30/24 01:15 05/30/24 01:16 Temperature Pulse Rate 110 H 108 H 109 H Respiratory Rate 30 H 29 H 27 H Blood Pressure 136/85 124/84 Pulse Oximetry 100 99 100 Oxygen Delivery Oxygen Flow Rate 05/30/24 01:30 05/30/24 02:19 05/30/24 02:38 Temperature Pulse Rate 97 109 H Respiratory Rate 32 H 30 H 39 H Blood Pressure Pulse Oximetry 100 Oxygen Delivery BiPAP Oxygen Flow Rate 05/30/24 02:47 05/30/24 03:15 05/30/24 03:19 Temperature Pulse Rate 112 H 114 H Respiratory Rate 33 H 30 H Blood Pressure 160/100 H Pulse Oximetry 91 95 Oxygen Delivery Oxygen Flow Rate 05/30/24 04:30 05/30/24 04:32 05/30/24 06:28 Temperature Pulse Rate 104 H 112 H 117 H Respiratory Rate 34 H 35 H 27 H Blood Pressure Pulse Oximetry 100 92 Oxygen Delivery BiPAP BiPAP Oxygen Flow Rate 05/30/24 07:25 05/30/24 07:25 05/30/24 07:35 Temperature Pulse Rate 112 H 112 H 114 H Respiratory Rate 20 20 24 H Blood Pressure Pulse Oximetry 98 Oxygen Delivery BiPAP Oxygen Flow Rate Exam Const: General: cooperative, no acute distress, alert, awake and ill appearing Limitations: other limitations (cognitive level due to medical history) HENMT: Head: normal to inspection and normocephalic Eyes: General: appearance normal, both eyes and all related structures Neck: Neck: normal visual inspection, full ROM and no lymphadenopathy Chest: Chest palpation & inspection: normal inspection of the chest Resp: Effort & Inspection: normal respiratory effort and able to speak in complete sentences Auscultation: rhonchi upper bilaterally and diminished lung sounds bilateral in the lower lung clarke Cardio: Jugular venous distension: no JVD Rate: tachycardic Rhythm: regular rhythm Heart sounds: S1 normal heart sound present and S2 normal heart sound present Peripheral pulses: Peripheral pulses 2+ throughout GI: Inspection: normal to inspection GI Palp: Yes Soft to palpation Auscultation: normal bowel sounds Skin: General skin exam: normal color and no rashes or lesions noted Neuro: General: oriented to person, oriented to place, oriented to time and moves all extremities Cranial nerves: Yes CN's II-XII intact bilaterally Speech: normal speech Gait exam (Neuro): Unable to assess gait Extrem: General: full ROM Psych: Appearance: grossly normal Speech and movement: Normal speech and movement present Affect: normal affect Attitude: cooperative H&P: Results Labs Labs: Short CBC 05/29/24 Range/Units 20:31 WBC 9.5 (4.5-10.0) K/mm3 Hgb 14.1 (14.0-18.0) g/dL Hct 43.2 (42.0-52.0) % Plt Count 446 H (150-375) k/mm3 BMP 05/29/24 05/30/24 20:31 01:59 Sodium 144 Potassium 4.2 Chloride 102 Carbon Dioxide 35 H BUN 21 H Creatinine 0.91 0.74 Glucose 149 H Calcium 8.8 Liver Function 05/29/24 Range/Units 20:31 Total Bilirubin 0.5 (0.2-1.3) mg/dL AST 41 (17-59) U/L ALT 38 (6-50) U/L Alkaline Phosphatase 101 (38-126) U/L Albumin 3.5 (3.5-5.1) g/dL Assessment and Plan Assessment and plan (1) Influenza A: Code(s): J10.1 - Influenza due to other identified influenza virus with other respiratory manifestations Status: Acute Assessment and Plan: Continue with symptomatic management tylenol prn for fever see below (2) Pneumonia: Code(s): J18.9 - Pneumonia, unspecified organism Status: Acute Assessment and Plan: ## in COPD and smoker -as seen on CT - Scattered areas of tree-in-bud opacity with several slightly more confluent areas of consolidation left upper lobe. Findings are compatible small airways infection with superimposed patchy left upper lobe pneumonia. --> continue with Cefepime/Vanco per order --> on Bipap - to wean to O2 as tolerated. goal to be on Room Air --> Nebulizer treatments per order --> continue with solu medrol per taper. -->. trend labs - cbc, mag daily --> nicotine patch (3) Schizophrenia: Qualifiers: Schizophrenia type: unspecified Qualified Code(s): F20.9 - Schizophrenia, unspecified Code(s): F20.9 - Schizophrenia, unspecified Status: Acute Assessment and Plan: continue home medications (4) Seizure disorder: Code(s): G40.909 - Epilepsy, unspecified, not intractable, without status epilepticus Status: Chronic Assessment and Plan: Continue medications (5) COPD (chronic obstructive pulmonary disease): Qualifiers: COPD type: unspecified COPD Qualified Code(s): J44.9 - Chronic obstructive pulmonary disease, unspecified Code(s): J44.9 - Chronic obstructive pulmonary disease, unspecified Status: Chronic Assessment and Plan: # in COPD and smoker -as seen on CT - Scattered areas of tree-in-bud opacity with several slightly more confluent areas of consolidation left upper lobe. Findings are compatible s mall airways infection with superimposed patchy left upper lobe pneumonia. --> continue with Cefepime/Vanco per order --> on Bipap - to wean to O2 as tolerated. goal to be on Room Air --> Nebulizer treatments per order --> continue with solu medrol per taper. (6) Dyslipidemia: Code(s): E78.5 - Hyperlipidemia, unspecified Status: Acute Assessment and Plan: Continue medications Plan DVT - mechanical Code status - full code Disposition -patient will be discharged back home, once stable Quality VTE Prophylaxis VTE prophylaxis: mechanical ordered Hospitalist MIPS Advance Care Plan I have confirmed that the patient's Advanced Care Plan is present, code status is documented, or surrogate decision maker is listed in patient medical record.: Yes Medication Reconciliation I have utilized all available resources to obtain, update and review the patients current medications (includes all prescriptions, OTC, herbals, cannabis, and nutritional supplements).: Yes
[2024-05-30] MEDS: guaiFENesin/DEXTROMETHORPHAN 10 ML UDC PO ×3 (08:47→16:52)
[2024-05-30] MEDS: methylPREDNISolone SOD SUCC 40 MG VIAL IV PUSH ×2 (08:47→20:35)
[2024-05-30] MEDS: NICOTINE (*PBKC) 21 MG PATCH 1 PATCH TRANSDERM (10:10)
[2024-05-30] MEDS: fluPHENAZine HCl 5 MG TABLET PO ×3 (10:14→16:52)
[2024-05-30] MEDS: ASPIRIN 81 MG ENTERIC TABLET PO (10:15)
[2024-05-30] MEDS: CLORAZEPATE DIPOTASSIUM (*CRX) 3.75 MG TABLET PO ×3 (10:15→16:52)
[2024-05-30] MEDS: PHENYTOIN SODIUM 100 MG EXTENDED RELEASE CAP PO ×3 (10:16→16:52)
[2024-05-30] MEDS: CEFEPIME 2 GM/NS 50 ML 2 GM/50 ML BAG IVPB ×2 (12:01→23:09)
--- NOTE | 2024-05-30 15:11 | PC.NURSE ---
Patient arrived to the floor via floor bed from the ER at approximately 1230pm. Alert and oriented, VSS, denies pain or discomfort at this time. Patient is able to answer some basic questions related to his medical history, however per the [id number] , his brother will be able to answer most questions . No acute distress noted at this time, placed on 4L/NC so that he can take medications, and tolerating well. No distress noted, patient states I feel a little better .
[2024-05-31] VITALS (26 sets, daily range): BP systolic 100–123; BP diastolic 68–83; PULSE 74–113; RESP 16–29; TEMP 36.2–37; O2SAT 94–99
[2024-05-31] MEDS: guaiFENesin/DEXTROMETHORPHAN 10 ML UDC PO ×4 (00:10→17:23)
[2024-05-31] MEDS: ALBUTEROL SULFATE NEB 2.5 MG/3 ML INH INHALATION (02:11)
[2024-05-31] MEDS: IPRATROPIUM 0.5 MG/ALBUTEROL SULFATE 2.5 MG AMPUL.NEB 3 ML INHALATION ×6 (02:11→19:42)
[2024-05-31 04:35] LABS: Basophils Percent Auto 0.3 % (0.2-1.2); Eosinophils Absolute Auto 0.1 K/mm3 (0-0.3); Eosinophils Percent Auto 0.9 % (0-4.4); Hematocrit 37.7 % (42.0-52.0); Hemoglobin 11.8 g/dL (14.0-18.0); Immature Granulocyte Absolute 0.08 K/mm3 (0.00-0.031); Lymphocytes Absolute Auto 1.29 K/mm3 (0.9-3.2); Lymphocytes Percent Auto 16.8 % (18.3-44.2); Mean Corpuscular HGB Conc 31.3 g/dl (32-36); Mean Corpuscular Hemoglobin 31.6 pg (26-34); Mean Corpuscular Volume 100.8 fl (80-100); Mean Platelet Volume 9.1 fl (7.4-10.4); Monocytes Absolute Auto 0.9 K/mm3 (0.1-0.6); Neutrophils Absolute Auto 5.3 K/mm3 (1.3-6.7); Platelet Count Result 419 k/mm3 (150-375); Red Blood Count 3.74 M/mm3 (4.6-6.20); Red Cell Distribution Width 12.5 % (11.5-14.5); White Blood Count 7.7 K/mm3 (4.5-10.0)
[2024-05-31 04:58] LABS: Alanine Aminotransferase 35 U/L (6-50); Albumin Level 3.1 g/dL (3.5-5.1); Alkaline Phosphatase 91 U/L (38-126); Anion Gap 6 mmol/L (4-12); Aspartate Amino Transferase 34 U/L (17-59); Bilirubin,Total 0.4 mg/dL (0.2-1.3); Blood Urea Nitrogen 15 mg/dL (9-20); Calcium 8.4 mg/dL (8.4-10.2); Carbon Dioxide 33 mmol/L (22-30); Chloride 102 mmol/L (98-107); Estimated CRCL calculation 70 ml/min; Estimated Glomerular Filt Rate > 60; Glucose 121 mg/dL (65-110); Magnesium 1.9 mg/dL (1.6-2.3); Potassium 3.8 mmol/L (3.4-5.0); Sodium 141 mmol/L (137-145)
[2024-05-31] MEDS: fluPHENAZine HCl 5 MG TABLET PO ×3 (08:25→17:23)
[2024-05-31] MEDS: methylPREDNISolone SOD SUCC 40 MG VIAL IV PUSH (08:25)
[2024-05-31] MEDS: PHENYTOIN SODIUM 100 MG EXTENDED RELEASE CAP PO ×3 (08:25→17:23)
[2024-05-31] MEDS: CLORAZEPATE DIPOTASSIUM (*CRX) 3.75 MG TABLET PO ×3 (08:25→17:23)
[2024-05-31] MEDS: NICOTINE (*PBKC) 21 MG PATCH 1 PATCH TRANSDERM (08:25)
[2024-05-31] MEDS: ASPIRIN 81 MG ENTERIC TABLET PO (08:25)
--- NOTE | 2024-05-31 09:05 | PM.IMPN ---
Progress Note: A&P Assessment and Plan (1) Influenza A: Code(s): J10.1 - Influenza due to other identified influenza virus with other respiratory manifestations Status: Acute Assessment and Plan: Continue with symptomatic management Discontinued methylprednisone Prednisone taper tylenol prn for fever see below (2) Pneumonia: Code(s): J18.9 - Pneumonia, unspecified organism Status: Acute Assessment and Plan: COPD and smoker -as seen on CT - Scattered areas of tree-in-bud opacity with several slightly more confluent areas of consolidation left upper lobe. Findings are compatible small airways infection with superimposed patchy left upper lobe pneumonia. -discontinue cefepime and vancomycin -status post BiPAP -currently on 2 L nasal cannula -started amoxicillin and doxycycline for 5 days -nasal MRSA negative -continue nebulizing treatment -nicotine patch -consider pulmonology consult (3) Schizophrenia: Qualifiers: Schizophrenia type: unspecified Qualified Code(s): F20.9 - Schizophrenia, unspecified Code(s): F20.9 - Schizophrenia, unspecified Status: Acute Assessment and Plan: continue home medications (4) Seizure disorder: Code(s): G40.909 - Epilepsy, unspecified, not intractable, without status epilepticus Status: Chronic Assessment and Plan: Continue medications (5) COPD (chronic obstructive pulmonary disease): Qualifiers: COPD type: unspecified COPD Qualified Code(s): J44.9 - Chronic obstructive pulmonary disease, unspecified Code(s): J44.9 - Chronic obstructive pulmonary disease, unspecified Status: Chronic Assessment and Plan: As above (6) Dyslipidemia: Code(s): E78.5 - Hyperlipidemia, unspecified Status: Acute Assessment and Plan: Continue medications (7) Rib fracture: Code(s): S22.39XA - Fracture of one rib, unspecified side, initial encounter for closed fracture Status: Acute Assessment and Plan: Consulted Ortho CT shows acute fracture of right 8th and 9th ribs Incentive spirometry Aggressive pulmonary toilet Plan DVT - mechanical Code status - full code Disposition -patient will be discharged back home, once stable Subjective Date/time seen: 05/31/24 09:05 Interval history: Currently patient is saturating well on 2 L nasal cannula. Preliminary blood culture shows no growth. Discontinued cefepime and started Amox/clav and doxycycline for 5 days . Discontinued methylprednisone and started prednisone taper. CT scan shows evidence of rib fracture on the consulted Ortho. Ordered incentive spirometry and advised aggressive pulmonary toilet. Spoke to his brother Kevin who is the POA. He reports that his younger brother Mr. Corral also participates in his medical decision. According to Mr. Brown patient wanted not to resuscitate but he wants to confirm with his brother Mr. Corral and will inform. Other than smoking 1 pack per day and schizophrenia ,no significant medical history. Denies using any nasal oxygen at home. Reviewed his home medication which shows patient is taking fluticasone furoate/vilanterol inhalation and albuterol rescue inhaler. Review of Systems Review of Systems: All systems reviewed & are unremarkable except as noted in HPI and below Constitutional: Constitutional: Reports fatigue and Reports malaise Eyes: Eyes: Reports as per HPI ENT: Reports system reviewed and no additional complaints, except as documented Cardiovascular: Cardiovascular: Reports no additional cardiovascular complaints and Reports dyspnea Respiratory: Respiratory: Reports as per HPI, Reports cough and Reports dyspnea Gastrointestinal: Gastrointestinal: Reports no additional gastrointestinal complaints Genitourinary: Genitourinary: Reports no additional male genitourinary complaints Musculoskeletal: Musculoskeletal: Reports no additional musculoskeletal complaints Integumentary/Breasts: Skin/Breast: Reports system reviewed and no additional complaints, except as docu Neurologic: Reports system reviewed and no additional complaints, except as documented Psychiatric: Psychiatric: Reports no additional psychiatric complaints Endocrine: Endocrine: Reports no additional endocrine complaints and Reports fatigue Hematologic/Lymphatic: Hematologic/Lymphatic: Reports no additional hematologic/lymphatic complaints Allergic/Immunologic: Allergic/Immunologic: Reports no additional allergic/immunologic complaints Exam Const: General: cooperative, no acute distress, alert, awake and ill appearing Orientation/consciousness: oriented to person, oriented to place and oriented to time Limitations: other limitations (cognitive level due to medical history) HENMT: Head: normal to inspection and normocephalic Eyes: General: appearance normal, both eyes and all related structures Neck: Neck: normal visual inspection, full ROM and no lymphadenopathy Chest: Chest palpation & inspection: normal inspection of the chest Resp: Effort & Inspection: normal respiratory effort and able to speak in complete sentences Auscultation: rhonchi upper bilaterally and diminished lung sounds bilateral in the lower lung clarke Cardio: Jugular venous distension: no JVD Rate: tachycardic Rhythm: regular rhythm Heart sounds: S1 normal heart sound present and S2 normal heart sound present Peripheral pulses: Peripheral pulses 2+ throughout GI: Inspection: normal to inspection Auscultation: normal bowel sounds Skin: General skin exam: normal color and no rashes or lesions noted Neuro: General: oriented to person, oriented to place, oriented to time, moves all extremities and Unable to assess gait Cranial nerves: Yes CN's II-XII intact bilaterally Speech: normal speech Gait exam (Neuro): Unable to assess gait Extrem: General: full ROM Psych: Appearance: grossly normal Speech and movement: Normal speech and movement present Affect: normal affect Attitude: cooperative Objective Data Vital Signs Vital Signs: Vital Signs - 24 hr 05/30/24 09:30 05/30/24 10:00 05/30/24 10:00 Temperature Pulse Rate 105 H 86 83 Respiratory Rate 17 28 H 19 Blood Pressure 113/73 107/67 Pulse Oximetry 98 98 Oxygen Delivery Oxygen Flow Rate Fraction of Inspired Oxygen 05/30/24 10:00 05/30/24 10:10 05/30/24 10:30 Temperature Pulse Rate 86 90 95 Respiratory Rate 28 H 26 H 19 Blood Pressure 127/79 Pulse Oximetry 98 99 Oxygen Delivery BiPAP Oxygen Flow Rate Fraction of Inspired Oxygen 05/30/24 12:41 05/30/24 12:41 05/30/24 12:47 Temperature Pulse Rate 103 H 103 H 101 H Respiratory Rate 22 H 22 H 24 H Blood Pressure Pulse Oximetry 99 Oxygen Delivery BiPAP Oxygen Flow Rate Fraction of Inspired Oxygen 05/30/24 14:00 05/30/24 16:00 05/30/24 16:00 Temperature 98.3 F Pulse Rate 92 85 87 Respiratory Rate 21 H Blood Pressure 102/67 Pulse Oximetry 99 Oxygen Delivery Oxygen Flow Rate Fraction of Inspired Oxygen 05/30/24 17:04 05/30/24 17:04 05/30/24 17:04 Temperature Pulse Rate 94 94 Respiratory Rate 27 H 27 H Blood Pressure Pulse Oximetry 97 97 Oxygen Delivery BiPAP BiPAP Oxygen Flow Rate Fraction of Inspired Oxygen 05/30/24 18:00 05/30/24 19:50 05/30/24 19:50 Temperature Pulse Rate 84 87 Respiratory Rate 22 H Blood Pressure Pulse Oximetry 99 99 Oxygen Delivery BiPAP BiPAP Oxygen Flow Rate Fraction of Inspired Oxygen 32 05/30/24 19:50 05/30/24 20:00 05/30/24 20:00 Temperature Pulse Rate 87 90 90 Respiratory Rate 22 H 18 Blood Pressure Pulse Oximetry 100 Oxygen Delivery BiPAP Oxygen Flow Rate Fraction of Inspired Oxygen 32 05/30/24 20:00 05/30/24 20:01 05/30/24 22:00 Temperature 97.6 F Pulse Rate 90 86 91 Respiratory Rate 18 23 H Blood Pressure 122/77 Pulse Oximetry 100 Oxygen Delivery Oxygen Flow Rate Fraction of Inspired Oxygen 05/30/24 22:00 05/30/24 22:52 05/30/24 22:52 Temperature Pulse Rate 86 104 H 104 H Respiratory Rate 26 H 20 20 Blood Pressure Pulse Oximetry 100 98 Oxygen Delivery Nasal Cannula BiPAP Oxygen Flow Rate 2 Fraction of Inspired Oxygen 05/30/24 22:58 05/31/24 00:00 05/31/24 00:00 Temperature Pulse Rate 92 83 83 Respiratory Rate 22 H 18 Blood Pressure Pulse Oximetry 99 Oxygen Delivery BiPAP Oxygen Flow Rate Fraction of Inspired Oxygen 32 05/31/24 00:00 05/31/24 02:00 05/31/24 02:11 Temperature 97.6 F Pulse Rate 82 74 74 Respiratory Rate 18 17 Blood Pressure 117/68 Pulse Oximetry 99 98 Oxygen Delivery BiPAP Oxygen Flow Rate Fraction of Inspired Oxygen 05/31/24 02:11 05/31/24 02:21 05/31/24 04:00 Temperature Pulse Rate 74 81 95 Respiratory Rate 17 20 23 H Blood Pressure Pulse Oximetry 99 Oxygen Delivery BiPAP Oxygen Flow Rate Fraction of Inspired Oxygen 32 05/31/24 04:00 05/31/24 04:00 05/31/24 04:37 Temperature 98.2 F Pulse Rate 95 95 91 Respiratory Rate 22 H 23 H Blood Pressure 116/74 Pulse Oximetry 99 98 Oxygen Delivery BiPAP Oxygen Flow Rate Fraction of Inspired Oxygen 05/31/24 04:37 05/31/24 04:51 05/31/24 05:00 Temperature Pulse Rate 91 93 93 Respiratory Rate 23 H 18 18 Blood Pressure Pulse Oximetry 95 Oxygen Delivery Room Air Oxygen Flow Rate Fraction of Inspired Oxygen 05/31/24 06:00 05/31/24 06:54 05/31/24 08:00 Temperature 98.4 F Pulse Rate 89 89 113 H Respiratory Rate 18 20 Blood Pressure 120/83 Pulse Oximetry 95 94 Oxygen Delivery Nasal Cannula Oxygen Flow Rate 2 Fraction of Inspired Oxygen 05/31/24 08:00 05/31/24 08:00 05/31/24 08:42 Temperature Pulse Rate 113 H 105 H 106 H Respiratory Rate 20 25 H Blood Pressure Pulse Oximetry 94 Oxygen Delivery Nasal Cannula Oxygen Flow Rate 2 Fraction of Inspired Oxygen 05/31/24 08:45 Temperature Pulse Rate Respiratory Rate Blood Pressure Pulse Oximetry 97 Oxygen Delivery Nasal Cannula Oxygen Flow Rate 2 Fraction of Inspired Oxygen Intake/Output Intake/Output: Intake & Output 05/28/24 05/29/24 05/30/24 05/31/24 23:59 23:59 23:59 23:59 Intake Total 1050 720 460 Output Total 20 400 Balance 1050 700 60 Meds/Results Medications: Active Medications Generic Name Dose Route Start Last Admin Trade Name Freq PRN Reason Stop Dose Admin Albuterol 2.5 mg 05/30/24 08:00 05/31/24 08:41 Albuterol Sulfate Neb 2.5 Mg/3 Ml Inh INHALATION Not Given Q6HRT [facility] Albuterol/Ipratropium 3 ml 05/30/24 04:00 05/31/24 08:41 Ipratropium 0.5 Mg/Albuterol Sulfate 2.5 Mg Ampul.Neb 3 Ml INHALATION 3 ml Q3HRT [facility] Administration Amoxicillin/Clavulanate Potassium 1 tablet 05/31/24 21:00 Amoxicillin/Clavulanate K 875-125 Mg Tab PO 06/05/24 20:59 Q12HR [facility] Aspirin 81 mg 05/30/24 09:00 05/31/24 08:25 Aspirin 81 Mg Enteric Tablet PO 81 mg QAM [facility] Administration Clorazepate Dipotassium 3.75 mg 05/30/24 09:00 05/31/24 08:25 Clorazepate Dipotassium (*Crx) 3.75 Mg Tablet PO 3.75 mg TID [facility] Administration Doxycycline Hyclate 100 mg 05/31/24 21:00 Doxycycline Hyclate 100 Mg Tablet PO 06/05/24 20:59 Q12HR [facility] Fluphenazine HCl 5 mg 05/30/24 09:00 05/31/24 08:25 Fluphenazine Hcl 5 Mg Tablet PO 5 mg TID [facility] Administration Guaifenesin/Dextromethorphan 10 ml 05/30/24 06:00 05/31/24 07:17 Guaifenesin/Dextromethorphan 10 Ml Udc PO 10 ml Q6HR [facility] Administration Nicotine 1 patch 05/30/24 09:00 05/31/24 08:25 Nicotine (*Pbkc) 21 Mg Patch TRANSDERM 1 patch DAILY [facility] Administration Phenytoin Sodium 100 mg 05/30/24 09:00 05/31/24 08:25 Phenytoin Sodium 100 Mg Extended Release Cap PO 100 mg TID [facility] Administration Prednisone 1 each 06/01/24 08:00 Prednisone Taper PO DAILY@0800 [facility] Radiology Results: ITS Impressions Chest X-Ray 05/29/24 20:58 IMPRESSION: No acute cardiopulmonary process. Chest CT 05/30/24 05:25 Impression: Scattered areas of tree-in-bud opacity with several slightly more confluent areas of consolidation left upper lobe. Findings are compatible small airways infection with superimposed patchy left upper lobe pneumonia. Mild emphysema. Acute fractures of the right eighth and ninth ribs. Labs Labs: Laboratory Results - last 24 hr 05/31/24 04:00 WBC 7.7 RBC 3.74 L Hgb 11.8 L Hct 37.7 L MCV 100.8 H MCH 31.6 MCHC 31.3 L RDW 12.5 Plt Count 419 H MPV 9.1 Immature Gran % (Auto) 1.0 H Neut % (Auto) 69.0 Lymph % (Auto) 16.8 L [place] % (Auto) 12.0 H Eos % (Auto) 0.9 Baso % (Auto) 0.3 Lymph # (Auto) 1.29 [place] # (Auto) 0.9 H Eos # (Auto) 0.1 Baso # (Auto) 0.0 Abs Immat Gran (auto) 0.08 H Absolute Neuts (auto) 5.3 Absolute Nucleated RBC 0.000 Nucleated RBC % 0.0 Sodium 141 Potassium 3.8 Chloride 102 Carbon Dioxide 33 H Anion Gap 6 BUN 15 D Creatinine 0.70 Estim Creat Clear Calc 70 Estimated GFR > 60 Glucose 121 H Calcium 8.4 Magnesium 1.9 Total Bilirubin 0.4 AST 34 ALT 35 Alkaline Phosphatase 91 Total Protein 6.0 L Albumin 3.1 L Quality VTE Prophylaxis VTE prophylaxis: mechanical ordered Hospitalist MIPS Advance Care Plan I have confirmed that the patient's Advanced Care Plan is present, code status is documented, or surrogate decision maker is listed in patient medical record.: Yes Medication Reconciliation I have utilized all available resources to obtain, update and review the patients current medications (includes all prescriptions, OTC, herbals, cannabis, and nutritional supplements).: Yes
[2024-05-31 10:01] LABS: Alveolar/Arterial O2 Gradient 65.7 mmHg; Base Excess ABG 8.3 mEq/l (+/-2.0); Device NASAL CANNULA; Fractional Inspired Oxygen 28 %; HCO3 ABG 34.5 mEq/l (22.0-26.0); Modified Allen's Test Pass; Oxygen Content ABG 15.5 %vol (16.0-22.0); Oxygen Saturation ABG 93.5 % (95.0-100.0); Oxyhemoglobin 93.4 % THb (90.0-100.0); PCO2 ABG 55.6 mmHg (35.0-45.0); PO2 ABG 68.3 mmHg (80.0-100.0); PO2 FiO2 Ratio Arterial Blood 2.44 %; Site Drawn LEFT RADIAL; Total Hemoglobin 11.8 g/dL (12.0-18.0); pH ABG 7.411 (7.350-7.450)
[2024-05-31] MEDS: DOXYCYCLINE HYCLATE 100 MG TABLET PO ×2 (11:01→21:26)
[2024-05-31] MEDS: ACETAMINOPHEN 325 MG TABLET 650 MG PO (11:02)
[2024-05-31] MEDS: AMOXICILLIN/CLAVULANATE K 875-125 MG TAB 1 TABLET PO ×2 (11:09→21:26)
--- NOTE | 2024-05-31 12:15 | P.CONPL_ITS ---
Assessment and Plan Assessment and plan (1) COPD (chronic obstructive pulmonary disease): Qualifiers: COPD type: unspecified COPD Qualified Code(s): J44.9 - Chronic obstructive pulmonary disease, unspecified Code(s): J44.9 - Chronic obstructive pulmonary disease, unspecified Status: Chronic (2) Tobacco dependence: Code(s): F17.200 - Nicotine dependence, unspecified, uncomplicated Status: Chronic (3) Pneumonia: Code(s): J18.9 - Pneumonia, unspecified organism Status: Acute Assessment and Plan: This 73-year-old man with history of psychiatric illness chronically on antipsychotic medications, seizure disorder and impaired mental alertness presented with shortness of breath hypoxemia related to underlying COPD exacerbation and influenza a viral infection. Patient was found to have a some tree in bud opacities and small infiltrates on chest x-rays most likely related to influenza viral infection. He has been treated for COPD exacerbations with acute hypercapnic respiratory failure and has improved following treatment with bronchodilators and steroids. He still on steroids. His hypercapnia is most likely acute related to COPD exacerbation as review of previous laboratory testing results showed no persisting elevation of total bicarbonate. Agree with current antibiotic regimen consisting of Augmentin and doxycycline. His viral illness began most likely few days prior to presenting to the emergency room and treatment with Tamiflu may not be indicated at this time. Plan: Continue the current antibiotic regimen. Maintain the use of short-acting bronchodilators. Provide BiPAP support at night. Continue prednisone 40 mg orally daily, with plans to discontinue over the next few days, as there is no evidence of bronchospasm on examination. Initiate DVT prophylaxis. I will continue to follow the patient along with you. (4) Schizophrenia: Qualifiers: Schizophrenia type: unspecified Qualified Code(s): F20.9 - Schizophrenia, unspecified Code(s): F20.9 - Schizophrenia, unspecified Status: Acute (5) Influenza A: Code(s): J10.1 - Influenza due to other identified influenza virus with other respiratory manifestations Status: Acute (6) Rib fracture: Qualifiers: Encounter type: initial encounter Rib fracture type: multiple ribs F racture type: closed Laterality: right Qualified Code(s): S22.41XA - Multiple fractures of ribs, right side, initial encounter for closed fracture Code(s): S22.39XA - Fracture of one rib, unspecified side, initial encounter for closed fracture Status: Acute (7) Seizure disorder: Code(s): G40.909 - Epilepsy, unspecified, not intractable, without status epilepticus Status: Chronic History of Present Illness History of Present Illness Consult date: 05/31/24 Chief complaint: Influenza a, pneumonia, COPD Narrative: A 73-year-old male presented with acute shortness of breath and hypoxemia. Notably, the patient did not report symptoms such as cough, fever, chills, or hemoptysis. Upon arrival at the emergency room, he was found to be hypoxemic with an oxygen saturation of 84% on room air. Diagnostic testing revealed bilateral tree-in-bud opacities and acute rib fractures on a chest CT scan. The patient has a known history of COPD, evidenced by previous CT scans showing mild radiographic emphysema, although no prior pulmonary function tests have been conducted. He tested positive for influenza A and exhibited mild respiratory acidosis, with a pH of 7.32 and a pCO2 of 57 mmHg. A review of previous laboratory tests showed no persistent elevation of bicarbonate levels. The patient was on a triple inhaler regimen for possible COPD and was under our Pulmonary Clinic's care. He has been treated with IV steroids, short-acting bronchodilators, antibiotics, and BiPAP support, resulting in significant clinical improvement according to his report. Currently, he is receiving supplemental oxygen via nasal cannula. The patient is a poor historian, simply stating he feels better and wishes to go home. His past medical history is also significant for a seizure disorder, schizophrenia, and impaired mental alertness. 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 History of hemorrhoidectomy (~2013) 2013 History of hernia repair (Unknown) Social History Social History Smoking packs per day: 1 Smoking cigarettes per day: 20.0 Years smoked: 55 Smoking pack-years: 55.00 Smoking status: Current every day smoker Tobacco type: cigarettes Second hand tobacco smoke exposure: No Alcohol intake: never Substance use: never Substance use type: does not use Do You Feel Safe in your Home?: Yes Lack of Transportation: No Lack of Food: Never True Current Housing: I Have Housing Concerned About Future Housing: No Difficulty Paying Gas/Electric Bills: No Difficulty Paying for Meds: No Currently Unemployed: No Education: High School Diploma/GED Difficulty w/ Childcare or Family Care: No Living arrangements: with family Occupation/Education: unemployed Gender identity (if verbalized by the patient): Male Spiritual care concerns: No Meds Home Medications and Allergies Home Medications ?Medication ?Instructions ?Recorded ?Confirmed ?Type clorazepate dipotassium 3.75 mg 3.75 mg PO TID 08/20/19 05/29/24 History tablet fluphenazine HCl 5 mg tablet 5 mg PO TID 08/20/19 05/29/24 History phenytoin sodium extended 100 mg 100 mg PO TID #270 caps 03/02/21 05/29/24 Rx capsule aspirin 81 mg tablet 81 mg PO DAILY 05/18/21 05/29/24 History glucosamine sulfate 500 mg tablet 1,000 mg PO DAILY 05/18/21 05/29/24 History (Glucosamine) multivitamin with minerals-folic 1 tablet PO DAILY 05/18/21 05/29/24 History acid 200 mcg chewable tablet vitamin K2 45 mcg capsule 45 mcg PO DAILY 03/02/23 05/29/24 History atorvastatin 10 mg tablet 10 mg PO QHS #90 tabs 05/19/23 05/29/24 Rx albuterol sulfate 90 mcg/actuation 1 - 2 puff inhalation Q4-6H PRN 12/02/23 05/29/24 Rx aerosol inhaler shortness of breath or wheezing #8.5 grams fluticasone furoate 200 1 inh inhalation DAILY #180 ea 03/15/24 05/29/24 Rx mcg-vilanterol 25 mcg/dose inhalation powder (Breo Ellipta) Allergies Allergy/AdvReac Type Severity Reaction Status Date / Time No Known Allergies Allergy Unknown Verified 05/29/24 20:02 Vital Signs Vital Signs - 24 hr 05/30/24 12:41 05/30/24 12:41 05/30/24 12:47 Temperature Pulse Rate 103 H 103 H 101 H Respiratory Rate 22 H 22 H 24 H Blood Pressure Pulse Oximetry 99 Oxygen Delivery BiPAP Oxygen Flow Rate Fraction of Inspired Oxygen 05/30/24 14:00 05/30/24 16:00 05/30/24 16:00 Temperature 36.8 C Pulse Rate 92 85 87 Respiratory Rate 21 H Blood Pressure 102/67 Pulse Oximetry 99 Oxygen Delivery Oxygen Flow Rate Fraction of Inspired Oxygen 05/30/24 17:04 05/30/24 17:04 05/30/24 17:04 Temperature Pulse Rate 94 94 Respiratory Rate 27 H 27 H Blood Pressure Pulse Oximetry 97 97 Oxygen Delivery BiPAP BiPAP Oxygen Flow Rate Fraction of Inspired Oxygen 32 05/30/24 18:00 05/30/24 19:50 05/30/24 19:50 Temperature Pulse Rate 84 87 Respiratory Rate 22 H Blood Pressure Pulse Oximetry 99 99 Oxygen Delivery BiPAP BiPAP Oxygen Flow Rate Fraction of Inspired Oxygen 32 05/30/24 19:50 05/30/24 20:00 05/30/24 20:00 Temperature Pulse Rate 87 90 90 Respiratory Rate 22 H 18 Blood Pressure Pulse Oximetry 100 Oxygen Delivery BiPAP Oxygen Flow Rate Fraction of Inspired Oxygen 32 05/30/24 20:00 05/30/24 20:01 05/30/24 22:00 Temperature 36.4 C Pulse Rate 90 86 91 Respiratory Rate 18 23 H Blood Pressure 122/77 Pulse Oximetry 100 Oxygen Delivery Oxygen Flow Rate Fraction of Inspired Oxygen 05/30/24 22:00 05/30/24 22:52 05/30/24 22:52 Temperature Pulse Rate 86 104 H 104 H Respiratory Rate 26 H 20 20 Blood Pressure Pulse Oximetry 100 98 Oxygen Delivery Nasal Cannula BiPAP Oxygen Flow Rate 2 Fraction of Inspired Oxygen 05/30/24 22:58 05/31/24 00:00 05/31/24 00:00 Temperature Pulse Rate 92 83 83 Respiratory Rate 22 H 18 Blood Pressure Pulse Oximetry 99 Oxygen Delivery BiPAP Oxygen Flow Rate Fraction of Inspired Oxygen 32 05/31/24 00:00 05/31/24 02:00 05/31/24 02:11 Temperature 36.4 C Pulse Rate 82 74 74 Respiratory Rate 18 17 Blood Pressure 117/68 Pulse Oximetry 99 98 Oxygen Delivery BiPAP Oxygen Flow Rate Fraction of Inspired Oxygen 05/31/24 02:11 05/31/24 02:21 05/31/24 04:00 Temperature Pulse Rate 74 81 95 Respiratory Rate 17 20 23 H Blood Pressure Pulse Oximetry 99 Oxygen Delivery BiPAP Oxygen Flow Rate Fraction of Inspired Oxygen 32 05/31/24 04:00 05/31/24 04:00 05/31/24 04:37 Temperature 36.8 C Pulse Rate 95 95 91 Respiratory Rate 22 H 23 H Blood Pressure 116/74 Pulse Oximetry 99 98 Oxygen Delivery BiPAP Oxygen Flow Rate Fraction of Inspired Oxygen 05/31/24 04:37 05/31/24 04:51 05/31/24 05:00 Temperature Pulse Rate 91 93 93 Respiratory Rate 23 H 18 18 Blood Pressure Pulse Oximetry 95 Oxygen Delivery Room Air Oxygen Flow Rate Fraction of Inspired Oxygen 05/31/24 06:00 05/31/24 06:54 05/31/24 08:00 Temperature 36.9 C Pulse Rate 89 89 113 H Respiratory Rate 18 20 Blood Pressure 120/83 Pulse Oximetry 95 94 Oxygen Delivery Nasal Cannula Oxygen Flow Rate 2 Fraction of Inspired Oxygen 05/31/24 08:00 05/31/24 08:00 05/31/24 08:42 Temperature Pulse Rate 113 H 105 H 106 H Respiratory Rate 20 25 H Blood Pressure Pulse Oximetry 94 Oxygen Delivery Nasal Cannula Oxygen Flow Rate 2 Fraction of Inspired Oxygen 05/31/24 08:45 05/31/24 10:00 05/31/24 11:07 Temperature Pulse Rate 106 H 98 Respiratory Rate 22 H Blood Pressure Pulse Oximetry 97 Oxygen Delivery Nasal Cannula Oxygen Flow Rate 2 Fraction of Inspired Oxygen 05/31/24 11:14 Temperature Pulse Rate 102 H Respiratory Rate 16 Blood Pressure Pulse Oximetry Oxygen Delivery Oxygen Flow Rate Fraction of Inspired Oxygen Exam 2 Narrative: GENERAL APPEARANCE: Well developed, well nourished, alert and cooperative, and appears to be in no acute distress SKIN: Inspection of the skin reveals no rashes, ulcerations or petechiae. HEENT: Sclerae anicteric and conjunctivae pink and moist. Extraocular movements were intact and pupils were equal, round, and reactive to light. The oral mucosa, hard and soft palate, tongue and posterior pharynx were normal. NECK: Supple. There was no thyroid enlargement, and no tenderness, or masses were felt. CHEST: Normal AP diameter and normal contour without any kyphoscoliosis. LUNGS: Mostly clear lungs anteriorly few rhonchi left upper chest CARDIAC: There was a regular rate and rhythm without any murmurs, gallops, rubs. ABDOMEN: Soft and nontender with normal bowel sounds. There was no organomegaly. LYMPH NODES: No lymphadenopathy was appreciated in the neck. EXTREMITIES: No cyanosis, clubbing or edema. NEUROLOGIC: Awake answering questions moving all extremities, cogwheel rigidity both wrists. Results Laboratory Findings 05/31/24 04:00 05/31/24 04:00 ABG, PT/INR, D-dimer: ABG ABG pH 7.411 (7.350-7.450) 05/31/24 09:54 ABG pCO2 55.6 mmHg (35.0-45.0) H 05/31/24 09:54 ABG pO2 68.3 mmHg (80.0-100.0) L 05/31/24 09:54 ABG O2 Saturation 93.5 % (95.0-100.0) L 05/31/24 09:54 Abnormal lab findings: Abnormal Labs 05/29/24 05/29/24 05/29/24 20:21 20:31 23:12 RBC 4.36 L Hgb Hct MCV MCHC Plt Count 446 H Immature Gran % (Auto) 0.6 H Lymph % (Auto) 12.9 L Sac % (Auto) 13.4 H Sac # (Auto) 1.3 H Abs Immat Gran (auto) 0.06 H Absolute Neuts (auto) 6.8 H ABG pH 7.323 L ABG pCO2 56.9 H ABG pO2 73.5 L ABG HCO3 28.9 H ABG O2 Saturation 93.4 L ABG O2 Content Reduced Hemoglobin 6.7 H Total Hemoglobin Carbon Dioxide 35 H BUN 21 H Glucose 149 H NT-Pro-B Natriuret Pep 740 H Total Protein Albumin Influenza A (RT-PCR) Positive A 05/31/24 05/31/24 04:00 09:54 RBC 3.74 L Hgb 11.8 L Hct 37.7 L MCV 100.8 H MCHC 31.3 L Plt Count 419 H Immature Gran % (Auto) 1.0 H Lymph % (Auto) 16.8 L Sac % (Auto) 12.0 H Sac # (Auto) 0.9 H Abs Immat Gran (auto) 0.08 H Absolute Neuts (auto) ABG pH ABG pCO2 55.6 H ABG pO2 68.3 L ABG HCO3 34.5 H ABG O2 Saturation 93.5 L ABG O2 Content 15.5 L Reduced Hemoglobin Total Hemoglobin 11.8 L Carbon Dioxide 33 H BUN Glucose 121 H NT-Pro-B Natriuret Pep Total Protein 6.0 L Albumin 3.1 L Influenza A (RT-PCR)
--- NOTE | 2024-05-31 12:21 | PM.IMHP ---
H&P: HPI History of Present Illness Date/Time: 05/31/24 12:21 Chief Complaint: Rib fractures Narrative: 73-year-old admitted to the intensive care unit with pulmonary failure. History of fall [address] showed right side rib fractures. Asked to see patient for evaluation. Review of Systems Constitutional: Constitutional: Denies fever(s) Eyes: Eyes: Denies blurry vision ENT: Reports Normal hearing present Cardiovascular: Cardiovascular: Denies chest pain Respiratory: Respiratory: Denies wheezing Gastrointestinal: Gastrointestinal: Denies abdominal pain Genitourinary: Genitourinary: Denies urinary urgency Musculoskeletal: Musculoskeletal: Reports as per HPI and Denies numbness Integumentary/Breasts: Skin/Breast: Denies changing lesions and Denies sores Neurologic: Reports Normal hearing present, Denies behavioral changes, Denies confusion, Denies numbness and Denies convulsions Psychiatric: Psychiatric: Denies behavioral changes, Denies confusion and Denies hallucinations Endocrine: Endocrine: Denies heat intolerance Hematologic/Lymphatic: Hematologic/Lymphatic: Denies easy bleeding Allergic/Immunologic: Allergic/Immunologic: Denies wheezing PMF Past Medical History Medical History Elevated PSA Impaired mental alertness Dyslipidemia Schizophrenia Tobacco dependence Seizure disorder COPD (chronic obstructive pulmonary disease) Surgical History Surgical History History of right inguinal hernia repair 2008 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 History of hemorrhoidectomy (~2013) 2014 History of hernia repair (Unknown) Social History Social History Smoking packs per day: 1 Smoking cigarettes per day: 20.0 Years smoked: 55 Smoking pack-years: 55.00 Smoking status: Current every day smoker Tobacco type: cigarettes Second hand tobacco smoke exposure: No Alcohol intake: never Substance use: never Substance use type: does not use Do You Feel Safe in your Home?: Yes Lack of Transportation: No Lack of Food: Never True Current Housing: I Have Housing Concerned About Future Housing: No Difficulty Paying Gas/Electric Bills: No Difficulty Paying for Meds: No Currently Unemployed: No Education: High School Diploma/GED Difficulty w/ Childcare or Family Care: No Living arrangements: with family Occupation/Education: unemployed Gender identity (if verbalized by the patient): Male Spiritual care concerns: No Meds Home Medications and Allergies Home Medications ?Medication ?Instructions ?Recorded ?Confirmed ?Type clorazepate dipotassium 3.75 mg 3.75 mg PO TID 08/20/19 05/29/24 History tablet fluphenazine HCl 5 mg tablet 5 mg PO TID 08/20/19 05/29/24 History phenytoin sodium extended 100 mg 100 mg PO TID #270 caps 03/02/21 05/29/24 Rx capsule aspirin 81 mg tablet 81 mg PO DAILY 05/18/21 05/29/24 History glucosamine sulfate 500 mg tablet 1,000 mg PO DAILY 05/18/21 05/29/24 History (Glucosamine) multivitamin with minerals-folic 1 tablet PO DAILY 05/18/21 05/29/24 History acid 200 mcg chewable tablet vitamin K2 45 mcg capsule 45 mcg PO DAILY 03/02/23 05/29/24 History atorvastatin 10 mg tablet 10 mg PO QHS #90 tabs 05/19/23 05/29/24 Rx albuterol sulfate 90 mcg/actuation 1 - 2 puff inhalation Q4-6H PRN 12/02/23 05/29/24 Rx aerosol inhaler shortness of breath or wheezing #8.5 grams fluticasone furoate 200 1 inh inhalation DAILY #180 ea 03/15/24 05/29/24 Rx mcg-vilanterol 25 mcg/dose inhalation powder (Breo Ellipta) Allergies Allergy/AdvReac Type Severity Reaction Status Date / Time No Known Allergies Allergy Unknown Verified 05/29/24 20:02 Vital Signs Vital Signs - 24 hr 05/30/24 12:41 05/30/24 12:41 05/30/24 12:47 Temperature Pulse Rate 103 H 103 H 101 H Respiratory Rate 22 H 22 H 24 H Blood Pressure Pulse Oximetry 99 Oxygen Delivery BiPAP Oxygen Flow Rate Fraction of Inspired Oxygen 05/30/24 14:00 05/30/24 16:00 05/30/24 16:00 Temperature 98.3 F Pulse Rate 92 85 87 Respiratory Rate 21 H Blood Pressure 102/67 Pulse Oximetry 99 Oxygen Delivery Oxygen Flow Rate Fraction of Inspired Oxygen 05/30/24 17:04 05/30/24 17:04 05/30/24 17:04 Temperature Pulse Rate 94 94 Respiratory Rate 27 H 27 H Blood Pressure Pulse Oximetry 97 97 Oxygen Delivery BiPAP BiPAP Oxygen Flow Rate Fraction of Inspired Oxygen 32 05/30/24 18:00 05/30/24 19:50 05/30/24 19:50 Temperature Pulse Rate 84 87 Respiratory Rate 22 H Blood Pressure Pulse Oximetry 99 99 Oxygen Delivery BiPAP BiPAP Oxygen Flow Rate Fraction of Inspired Oxygen 32 05/30/24 19:50 05/30/24 20:00 05/30/24 20:00 Temperature Pulse Rate 87 90 90 Respiratory Rate 22 H 18 Blood Pressure Pulse Oximetry 100 Oxygen Delivery BiPAP Oxygen Flow Rate Fraction of Inspired Oxygen 32 05/30/24 20:00 05/30/24 20:01 05/30/24 22:00 Temperature 97.6 F Pulse Rate 90 86 91 Respiratory Rate 18 23 H Blood Pressure 122/77 Pulse Oximetry 100 Oxygen Delivery Oxygen Flow Rate Fraction of Inspired Oxygen 05/30/24 22:00 05/30/24 22:52 05/30/24 22:52 Temperature Pulse Rate 86 104 H 104 H Respiratory Rate 26 H 20 20 Blood Pressure Pulse Oximetry 100 98 Oxygen Delivery Nasal Cannula BiPAP Oxygen Flow Rate 2 Fraction of Inspired Oxygen 05/30/24 22:58 05/31/24 00:00 05/31/24 00:00 Temperature Pulse Rate 92 83 83 Respiratory Rate 22 H 18 Blood Pressure Pulse Oximetry 99 Oxygen Delivery BiPAP Oxygen Flow Rate Fraction of Inspired Oxygen 32 05/31/24 00:00 05/31/24 02:00 05/31/24 02:11 Temperature 97.6 F Pulse Rate 82 74 74 Respiratory Rate 18 17 Blood Pressure 117/68 Pulse Oximetry 99 98 Oxygen Delivery BiPAP Oxygen Flow Rate Fraction of Inspired Oxygen 05/31/24 02:11 05/31/24 02:21 05/31/24 04:00 Temperature Pulse Rate 74 81 95 Respiratory Rate 17 20 23 H Blood Pressure Pulse Oximetry 99 Oxygen Delivery BiPAP Oxygen Flow Rate Fraction of Inspired Oxygen 32 05/31/24 04:00 05/31/24 04:00 05/31/24 04:37 Temperature 98.2 F Pulse Rate 95 95 91 Respiratory Rate 22 H 23 H Blood Pressure 116/74 Pulse Oximetry 99 98 Oxygen Delivery BiPAP Oxygen Flow Rate Fraction of Inspired Oxygen 05/31/24 04:37 05/31/24 04:51 05/31/24 05:00 Temperature Pulse Rate 91 93 93 Respiratory Rate 23 H 18 18 Blood Pressure Pulse Oximetry 95 Oxygen Delivery Room Air Oxygen Flow Rate Fraction of Inspired Oxygen 05/31/24 06:00 05/31/24 06:54 05/31/24 08:00 Temperature 98.4 F Pulse Rate 89 89 113 H Respiratory Rate 18 20 Blood Pressure 120/83 Pulse Oximetry 95 94 Oxygen Delivery Nasal Cannula Oxygen Flow Rate 2 Fraction of Inspired Oxygen 05/31/24 08:00 05/31/24 08:00 05/31/24 08:42 Temperature Pulse Rate 113 H 105 H 106 H Respiratory Rate 20 25 H Blood Pressure Pulse Oximetry 94 Oxygen Delivery Nasal Cannula Oxygen Flow Rate 2 Fraction of Inspired Oxygen 05/31/24 08:45 05/31/24 10:00 05/31/24 11:07 Temperature Pulse Rate 106 H 98 Respiratory Rate 22 H Blood Pressure Pulse Oximetry 97 Oxygen Delivery Nasal Cannula Oxygen Flow Rate 2 Fraction of Inspired Oxygen 05/31/24 11:14 05/31/24 12:00 Temperature 98.6 F Pulse Rate 102 H 102 H Respiratory Rate 16 20 Blood Pressure 112/70 Pulse Oximetry 96 Oxygen Delivery Oxygen Flow Rate Fraction of Inspired Oxygen Exam Const: General: comfortable, alert and awake; No in distress or confusion Orientation/consciousness: oriented to person, oriented to place, oriented to time and No confusion HENMT: Head: normal to inspection, normocephalic and atraumatic Eyes: Conjunctivae: conjunctivae normal Sclera: sclerae normal Neck: Neck: supple and nontender Resp: Effort & Inspection: no audible wheezes Skin: General skin exam: no rashes or lesions noted Neuro: General: oriented to person, oriented to place, oriented to time and No confusion Extrem: Right upper extremity: shoulder/upper arm tenderness of the A-C joint, over the subacromial bursa and other (anterolateral acromion, joint), axillary nerve sensory function normal, abnormal ROM (Active FF 100, ABd 90, ER 40, IR L4) pain with active ROM in ABduction, in flexion and in internal rotation and pain with passive ROM with internal rotation and external rotation- and other (RC 4/5, Bicep 4/5, Deltoid 5-/5, ER 4/5), elbow/forearm normal ROM; no tenderness and no swelling, wrist normal ROM and radial pulse present; no tenderness and Extremity exam: right hand neuromotor exam normal wrist extension normal, thumb opposition normal, thumb IP flexion normal and fingers 2-5 ABduction normal, neurosensory exam normal radial nerve sensory function normal, ulnar nerve sensory function normal, median nerve sensory function normal and digital nerve sensory function normal and vascular exam radial pulse present and normal capillary refill; no tenderness, no swelling and no crepitus Left upper extremity: normal to inspection and shoulder/upper arm normal ROM (FF 130, Abd 125, ER 70, IR T7); no tenderness, no swelling, no ecchymosis and no crepitus Right lower extremity: normal to inspection Left lower extremity: normal to inspection Psych: Affect: normal affect H&P: Results Labs Labs: Short CBC 05/31/24 Range/Units 04:00 WBC 7.7 (4.5-10.0) K/mm3 Hgb 11.8 L (14.0-18.0) g/dL Hct 37.7 L (42.0-52.0) % Plt Count 419 H (150-375) k/mm3 BMP 05/31/24 04:00 Sodium 141 Potassium 3.8 Chloride 102 Carbon Dioxide 33 H BUN 15 D Creatinine 0.70 Glucose 121 H Calcium 8.4 Liver Function 05/31/24 Range/Units 04:00 Total Bilirubin 0.4 (0.2-1.3) mg/dL AST 34 (17-59) U/L ALT 35 (6-50) U/L Alkaline Phosphatase 91 (38-126) U/L Albumin 3.1 L (3.5-5.1) g/dL Assessment and Plan Assessment and plan (1) Rib fracture: Qualifiers: Encounter type: initial encounter Rib fracture type: multiple ribs Fracture type: closed Laterality: right Qualified Code(s): S22.41XA - Multiple fractures of ribs, right side, initial encounter for closed fracture Code(s): S22.39XA - Fracture of one rib, unspecified side, initial encounter for closed fracture Status: Acute Assessment and Plan: Pleasant 73-year-old with respiratory failure and history of smoking. Found to have right-sided fracture of ribs 8, 9. Found on CT scan chest. Rib fractures nondisplaced. He has no tenderness to palpation and no pain. He is breathing better after being admitted and appears comfortable and in no acute distress. Recommend conservative treatment. No further intervention for his rib fractures indicated. May continue with observation. No follow-up needed unless problems.
--- NOTE | 2024-05-31 15:37 | PC.NURSE ---
Updated patient brother, Kevin, on pending transfer to room 244.
--- NOTE | 2024-05-31 16:40 | PC.NURSE ---
This patient, Everardo Diaz, was received from ICU on 05/31/24 at 1648. Patient/family oriented to unit policies and routines
[2024-06-01] VITALS (15 sets, daily range): BP systolic 117; BP diastolic 68–70; PULSE 77–95; RESP 16–22; TEMP 36.4–36.8; O2SAT 96
[2024-06-01] MEDS: IPRATROPIUM 0.5 MG/ALBUTEROL SULFATE 2.5 MG AMPUL.NEB 3 ML INHALATION ×5 (03:50→20:20)
[2024-06-01 05:18] LABS: Basophils Percent Auto 0.3 % (0.2-1.2); Eosinophils Absolute Auto 0.2 K/mm3 (0-0.3); Eosinophils Percent Auto 2.6 % (0-4.4); Hematocrit 37.3 % (42.0-52.0); Hemoglobin 11.9 g/dL (14.0-18.0); Immature Granulocyte Absolute 0.05 K/mm3 (0.00-0.031); Immature Granulocyte Percent A 0.7 % (0-0.5); Lymphocytes Absolute Auto 1.25 K/mm3 (0.9-3.2); Lymphocytes Percent Auto 18.1 % (18.3-44.2); Mean Corpuscular HGB Conc 31.9 g/dl (32-36); Mean Corpuscular Hemoglobin 31.7 pg (26-34); Mean Corpuscular Volume 99.5 fl (80-100); Mean Platelet Volume 9.1 fl (7.4-10.4); Monocytes Absolute Auto 0.9 K/mm3 (0.1-0.6); Monocytes Percent Auto 12.7 % (2.6-8.5); Neutrophils Absolute Auto 4.5 K/mm3 (1.3-6.7); Neutrophils Percent Auto 65.6 % (45.5-73.1); Platelet Count Result 479 k/mm3 (150-375); Red Blood Count 3.75 M/mm3 (4.6-6.20); Red Cell Distribution Width 12.7 % (11.5-14.5); White Blood Count 6.9 K/mm3 (4.5-10.0)
[2024-06-01 05:41] LABS: Alanine Aminotransferase 40 U/L (6-50); Alkaline Phosphatase 90 U/L (38-126); Anion Gap 4 mmol/L (4-12); Aspartate Amino Transferase 35 U/L (17-59); Bilirubin,Total 0.5 mg/dL (0.2-1.3); Blood Urea Nitrogen 12 mg/dL (9-20); Calcium 8.6 mg/dL (8.4-10.2); Carbon Dioxide 35 mmol/L (22-30); Chloride 100 mmol/L (98-107); Estimated CRCL calculation 66 ml/min; Estimated Glomerular Filt Rate > 60; Glucose 99 mg/dL (65-110); Magnesium 1.8 mg/dL (1.6-2.3); Sodium 139 mmol/L (137-145)
[2024-06-01] MEDS: guaiFENesin/DEXTROMETHORPHAN 10 ML UDC PO ×4 (06:47→23:39)
[2024-06-01] MEDS: AMOXICILLIN/CLAVULANATE K 875-125 MG TAB 1 TABLET PO ×2 (09:01→20:41)
[2024-06-01] MEDS: fluPHENAZine HCl 5 MG TABLET PO ×3 (09:01→17:40)
[2024-06-01] MEDS: DOXYCYCLINE HYCLATE 100 MG TABLET PO ×2 (09:01→20:41)
[2024-06-01] MEDS: NICOTINE (*PBKC) 21 MG PATCH 1 PATCH TRANSDERM (09:02)
[2024-06-01] MEDS: CLORAZEPATE DIPOTASSIUM (*CRX) 3.75 MG TABLET PO ×3 (09:02→17:41)
[2024-06-01] MEDS: PHENYTOIN SODIUM 100 MG EXTENDED RELEASE CAP PO ×3 (09:02→17:41)
[2024-06-01] MEDS: ASPIRIN 81 MG ENTERIC TABLET PO (09:02)
[2024-06-01] MEDS: predniSONE 20 MG TABLET 40 MG PO (09:02)
--- NOTE | 2024-06-01 09:19 | PM.PNPUL ---
Progress Note: A&P Assessment and Plan (1) COPD (chronic obstructive pulmonary disease): Qualifiers: COPD type: unspecified COPD Qualified Code(s): J44.9 - Chronic obstructive pulmonary disease, unspecified Code(s): J44.9 - Chronic obstructive pulmonary disease, unspecified Status: Chronic Assessment and Plan: This 73-year-old man with history of psychiatric illness chronically on antipsychotic medications, seizure disorder and impaired mental alertness presented with shortness of breath hypoxemia related to underlying COPD exacerbation and influenza A viral infection. Patient was found to have some tree in bud opacities and small infiltrates on chest x-rays most likely related to influenza viral infection. He has been treated for COPD exacerbations with acute hypercapnic respiratory failure and has improved following treatment with bronchodilators and steroids. He still on steroids. His hypercapnia is most likely acute related to COPD exacerbation as review of previous laboratory testing results showed no persisting elevation of total bicarbonate. Agree with current antibiotic regimen consisting of Augmentin and doxycycline. His viral illness began most likely few days prior to presenting to the emergency room and treatment with Tamiflu may not be indicated at this time. Plan: Continue the current antibiotic regimen. Maintain the use of short-acting bronchodilators. Provide BiPAP support at night. I recommend discontinuing steroids at this point for two reasons: the patient's wheezing has significantly improved, and the physical examination now only reveals some rhonchi. Additionally, steroid use is limited in cases of influenza A pneumonia, as it may exacerbate the condition. Initiate DVT prophylaxis. Consider a video swallow study to rule out dysphagia. I will continue to follow the patient alongside you. (2) Tobacco dependence: Code(s): F17.200 - Nicotine dependence, unspecified, uncomplicated Status: Chronic (3) Pneumonia: Code(s): J18.9 - Pneumonia, unspecified organism Status: Acute (4) Schizophrenia: Qualifiers: Schizophrenia type: unspecified Qualified Code(s): F20.9 - Schizophrenia, unspecified Code(s): F20.9 - Schizophrenia, unspecified Status: Acute (5) Influenza A: Code(s): J10.1 - Influenza due to other identified influenza virus with other respiratory manifestations Status: Acute Subjective Date/time seen: 06/01/24 09:19 Interval history: Patient is again slow to answer questions. He stated he has no new respiratory symptoms. Overall he is feeling better. He use BiPAP support last night. Review of Systems Review of Systems: All systems reviewed & are unremarkable except as noted in HPI and below (HPI and below) Exam Narrative: GENERAL APPEARANCE: Well developed, well nourished, alert and cooperative, and appears to be in no acute distress SKIN: Inspection of the skin reveals no rashes, ulcerations or petechiae. HEENT: Sclerae anicteric and conjunctivae pink and moist. Extraocular movements were intact and pupils were equal, round, and reactive to light. The oral mucosa, hard and soft palate, tongue and posterior pharynx were normal. NECK: Supple. There was no thyroid enlargement, and no tenderness, or masses were felt. CHEST: Normal AP diameter and normal contour without any kyphoscoliosis. LUNGS: Mostly clear lungs anteriorly few rhonchi left upper chest CARDIAC: There was a regular rate and rhythm without any murmurs, gallops, rubs. ABDOMEN: Soft and nontender with normal bowel sounds. There was no organomegaly. LYMPH NODES: No lymphadenopathy was appreciated in the neck. EXTREMITIES: No cyanosis, clubbing or edema. NEUROLOGIC: Awake answering questions moving all extremities, cogwheel rigidity both wrists. Objective Data Vital Signs Vital Signs: Vital Signs - 24 hr 05/31/24 10:00 05/31/24 11:07 05/31/24 11:14 Temperature Pulse Rate 106 H 98 102 H Respiratory Rate 22 H 16 Blood Pressure Pulse Oximetry Oxygen Delivery Oxygen Flow Rate 05/31/24 12:00 05/31/24 12:00 05/31/24 12:00 Temperature 37.0 C Pulse Rate 102 H 100 100 Respiratory Rate 20 20 Blood Pressure 112/70 Pulse Oximetry 96 96 Oxygen Delivery Nasal Cannula Oxygen Flow Rate 2 05/31/24 14:00 05/31/24 15:31 05/31/24 16:00 Temperature 36.8 C Pulse Rate 96 87 88 Respiratory Rate 25 H 19 Blood Pressure 100/71 Pulse Oximetry 99 Oxygen Delivery Oxygen Flow Rate 05/31/24 16:00 05/31/24 16:45 05/31/24 19:43 Temperature 36.6 C Pulse Rate 89 97 85 Respiratory Rate 18 29 H Blood Pressure 120/71 Pulse Oximetry 98 Oxygen Delivery Oxygen Flow Rate 05/31/24 19:54 05/31/24 19:55 05/31/24 20:00 Temperature Pulse Rate 91 Respiratory Rate 24 H Blood Pressure Pulse Oximetry 97 94 Oxygen Delivery Nasal Cannula Nasal Cannula Oxygen Flow Rate 2 2 05/31/24 20:59 06/01/24 03:51 06/01/24 08:29 Temperature 36.2 C L Pulse Rate 75 87 Respiratory Rate 20 20 Blood Pressure 123/72 Pulse Oximetry 97 96 Oxygen Delivery Nasal Cannula Oxygen Flow Rate 2 06/01/24 08:29 06/01/24 08:40 Temperature Pulse Rate 85 87 Respiratory Rate 22 H 20 Blood Pressure Pulse Oximetry Oxygen Delivery Oxygen Flow Rate Intake/Output Intake/Output: Intake & Output 05/29/24 05/30/24 05/31/24 06/01/24 23:59 23:59 23:59 23:59 Intake Total 1050 720 580 300 Output Total 20 400 700 Balance 1050 700 180 -400 Meds/Results Medications: Active Medications Generic Name Dose Route Start Last Admin Trade Name Freq PRN Reason Stop Dose Admin Acetaminophen 650 mg 05/31/24 10:36 05/31/24 11:02 Acetaminophen 325 Mg Tablet PO 650 mg Q6H PRN Administration Mild Pain (1-3) or Fever Albuterol/Ipratropium 3 ml 05/31/24 12:00 06/01/24 08:29 Ipratropium 0.5 Mg/Albuterol Sulfate 2.5 Mg Ampul.Neb 3 Ml INHALATION 3 ml Q4HRT TONIO Administration Amoxicillin/Clavulanate Potassium 1 tablet 05/31/24 09:00 06/01/24 09:01 Amoxicillin/Clavulanate K 875-125 Mg Tab PO 06/05/24 08:59 1 tablet Q12HR TONIO Administration Aspirin 81 mg 05/30/24 09:00 06/01/24 09:02 Aspirin 81 Mg Enteric Tablet PO 81 mg QAM TONIO Administration Clorazepate Dipotassium 3.75 mg 05/30/24 09:00 06/01/24 09:02 Clorazepate Dipotassium (*Crx) 3.75 Mg Tablet PO 3.75 mg TID TONIO Administration Doxycycline Hyclate 100 mg 05/31/24 09:00 06/01/24 09:01 Doxycycline Hyclate 100 Mg Tablet PO 06/05/24 08:59 100 mg Q12HR TONIO Administration Fluphenazine HCl 5 mg 05/30/24 09:00 06/01/24 09:01 Fluphenazine Hcl 5 Mg Tablet PO 5 mg TID TONIO Administration Guaifenesin/Dextromethorphan 10 ml 05/30/24 06:00 06/01/24 06:47 Guaifenesin/Dextromethorphan 10 Ml Udc PO 10 ml Q6HR TONIO Administration Nicotine 1 patch 05/30/24 09:00 06/01/24 09:02 Nicotine (*Pbkc) 21 Mg Patch TRANSDERM 1 patch DAILY [facility] Administration Oxycodone HCl 5 mg 05/31/24 10:36 Oxycodone Hcl (*Crx) 5 Mg Tab Ir PO Q6H PRN Pain Rated 7-10 Phenytoin Sodium 100 mg 05/30/24 09:00 06/01/24 09:02 Phenytoin Sodium 100 Mg Extended Release Cap PO 100 mg TID [facility] Administration Prednisone 40 mg 06/01/24 08:00 06/01/24 09:02 Prednisone 20 Mg Tablet PO 06/03/24 08:01 40 mg DAILY@0800 [facility] Administration Prednisone 30 mg 06/04/24 08:00 Prednisone 10 Mg Tablet PO 06/06/24 08:01 DAILY@0800 [facility] Prednisone 20 mg 06/07/24 08:00 Prednisone 20 Mg Tablet PO 06/09/24 08:01 DAILY@0800 [facility] Prednisone 10 mg 06/10/24 08:00 Prednisone 10 Mg Tablet PO 06/12/24 08:01 DAILY@0800 [facility] Radiology Results: ITS Impressions Chest X-Ray 05/29/24 20:58 IMPRESSION: No acute cardiopulmonary process. Chest CT 05/30/24 05:25 Impression: Scattered areas of tree-in-bud opacity with several slightly more confluent areas of consolidation left upper lobe. Findings are compatible small airways infection with superimposed patchy left upper lobe pneumonia. Mild emphysema. Acute fractures of the right eighth and ninth ribs. Venous Doppler Study 05/31/24 12:20 IMPRESSION: 1. No deep venous thrombosis. Labs Labs: Laboratory Results - last 24 hr 05/31/24 06/01/24 09:54 04:44 WBC 6.9 RBC 3.75 L Hgb 11.9 L Hct 37.3 L MCV 99.5 MCH 31.7 MCHC 31.9 L RDW 12.7 Plt Count 479 H MPV 9.1 Immature Gran % (Auto) 0.7 H Neut % (Auto) 65.6 Lymph % (Auto) 18.1 L [place] % (Auto) 12.7 H Eos % (Auto) 2.6 Baso % (Auto) 0.3 Lymph # (Auto) 1.25 [place] # (Auto) 0.9 H Eos # (Auto) 0.2 Baso # (Auto) 0.0 Abs Immat Gran (auto) 0.05 H Absolute Neuts (auto) 4.5 Absolute Nucleated RBC 0.000 Nucleated RBC % 0.0 Puncture Site Left radial ABG pH 7.411 ABG pCO2 55.6 H ABG pO2 68.3 L ABG PO2/FiO2 Ratio 2.44 ABG HCO3 34.5 H ABG O2 Saturation 93.5 L ABG O2 Content 15.5 L ABG Base Excess 8.3 A-a Gradient 65.7 Oxyhemoglobin 93.4 Total Hemoglobin 11.8 L O2 Delivery Device Nasal cannula O2 Liters/Min 2.0 FiO2 28 Sodium 139 Potassium 4.0 Chloride 100 Carbon Dioxide 35 H Anion Gap 4 BUN 12 Creatinine 0.74 Estim Creat Clear Calc 66 Estimated GFR > 60 Glucose 99 Calcium 8.6 Magnesium 1.8 Total Bilirubin 0.5 AST 35 ALT 40 Alkaline Phosphatase 90 Total Protein 6.0 L Albumin 3.0 L
--- NOTE | 2024-06-01 15:44 | PCSTNOTE ---
Please refer to the Modified Barium Swallow Evaluation in the EMR.
--- NOTE | 2024-06-01 17:24 | P.PNIM_ITS ---
Progress Note: A&P Assessment and Plan (1) Influenza A: Code(s): J10.1 - Influenza due to other identified influenza virus with other respiratory manifestations Status: Acute Assessment and Plan: Continue with symptomatic management Discontinued methylprednisone Prednisone taper tylenol prn for fever see below (2) Pneumonia: Code(s): J18.9 - Pneumonia, unspecified organism Status: Acute Assessment and Plan: COPD and smoker -as seen on CT - Scattered areas of tree-in-bud opacity with several slightly more confluent areas of consolidation left upper lobe. Findings are compatible small airways infection with superimposed patchy left upper lobe pneumonia. -discontinue cefepime and vancomycin -status post BiPAP -currently on 2 L nasal cannula -started amoxicillin and doxycycline for 5 days -nasal MRSA negative -continue nebulizing treatment -nicotine patch -consider pulmonology consult (3) Schizophrenia: Qualifiers: Schizophrenia type: unspecified Qualified Code(s): F20.9 - Schizophrenia, unspecified Code(s): F20.9 - Schizophrenia, unspecified Status: Acute Assessment and Plan: continue home medications (4) Seizure disorder: Code(s): G40.909 - Epilepsy, unspecified, not intractable, without status epilepticus Status: Chronic Assessment and Plan: Continue medications (5) COPD (chronic obstructive pulmonary disease): Qualifiers: COPD type: unspecified COPD Qualified Code(s): J44.9 - Chronic obstructive pulmonary disease, unspecified Code(s): J44.9 - Chronic obstructive pulmonary disease, unspecified Status: Chronic Assessment and Plan: As above (6) Dyslipidemia: Code(s): E78.5 - Hyperlipidemia, unspecified Status: Acute Assessment and Plan: Continue medications (7) Rib fracture: Qualifiers: Encounter type: initial encounter Rib fracture type: multiple ribs Fracture type: closed Laterality: right Qualified Code(s): S22.41XA - Multiple fractures of ribs, right side, initial encounter for closed fracture Code(s): S22.39XA - Fracture of one rib, unspecified side, initial encounter for closed fracture Status: Acute Assessment and Plan: Consulted Ortho CT shows acute fracture of right 8th and 9th ribs Incentive spirometry Aggressive pulmonary toilet Plan DVT - mechanical Code status - full code Disposition -patient will be discharged back home, once stable Subjective Date/time seen: 06/01/24 17:24 Interval history: Patient underwent a swallow study. Patient has evidence of choking. Will discuss the goals of care and again with his brother Lisa. Added Lissa knapp. Review of Systems Review of Systems: All systems reviewed & are unremarkable except as noted in HPI and below Constitutional: Constitutional: Reports fatigue and Reports malaise Eyes: Eyes: Reports as per HPI ENT: Reports system reviewed and no additional complaints, except as documented Cardiovascular: Cardiovascular: Reports no additional cardiovascular complaints and Reports dyspnea Respiratory: Respiratory: Reports as per HPI, Reports cough and Reports dysp shar Gastrointestinal: Gastrointestinal: Reports no additional gastrointestinal complaints Genitourinary: Genitourinary: Reports no additional male genitourinary complaints Musculoskeletal: Musculoskeletal: Reports no additional musculoskeletal complaints Integumentary/Breasts: Skin/Breast: Reports system reviewed and no additional complaints, except as docu Neurologic: Reports system reviewed and no additional complaints, except as documented Psychiatric: Psychiatric: Reports no additional psychiatric complaints Endocrine: Endocrine: Reports no additional endocrine complaints and Reports fatigue Hematologic/Lymphatic: Hematologic/Lymphatic: Reports no additional hematologic/lymphatic complaints Allergic/Immunologic: Allergic/Immunologic: Reports no additional allergic/immunologic complaints Exam Const: General: cooperative, no acute distress, alert, awake and ill appearing Orientation/consciousness: oriented to person, oriented to place and oriented to time Limitations: other limitations (cognitive level due to medical history) HENMT: Head: normal to inspection and normocephalic Eyes: General: appearance normal, both eyes and all related structures Neck: Neck: normal visual inspection, full ROM and no lymphadenopathy Chest: Chest palpation & inspection: normal inspection of the chest Resp: Effort & Inspection: normal respiratory effort and able to speak in complete sentences Auscultation: rhonchi upper bilaterally and diminished lung sounds bilateral in the lower lung clarke Cardio: Jugular venous distension: no JVD Rate: tachycardic Rhythm: regular rhythm Heart sounds: S1 normal heart sound present and S2 normal heart sound present Peripheral pulses: Peripheral pulses 2+ throughout GI: Inspection: normal to inspection Auscultation: normal bowel sounds Skin: General skin exam: normal color and no rashes or lesions noted Neuro: General: oriented to person, oriented to place, oriented to time, moves all extremities and Unable to assess gait Cranial nerves: Yes CN's II-XII intact bilaterally Speech: normal speech Gait exam (Neuro): Unable to assess gait Extrem: General: full ROM Psych: Appearance: grossly normal Speech and movement: Normal speech and movement present Affect: normal affect Attitude: cooperative Objective Data Vital Signs Vital Signs: Vital Signs - 24 hr 05/31/24 19:43 05/31/24 19:54 05/31/24 19:55 Temperature Pulse Rate 85 91 Respiratory Rate 29 H 24 H Blood Pressure Pulse Oximetry 97 Oxygen Delivery Nasal Cannula Oxygen Flow Rate 2 05/31/24 20:00 05/31/24 20:59 06/01/24 03:51 Temperature 97.2 F L Pulse Rate 75 87 Respiratory Rate 20 20 Blood Pressure 123/72 Pulse Oximetry 94 97 Oxygen Delivery Nasal Cannula Oxygen Flow Rate 2 06/01/24 08:00 06/01/24 08:00 06/01/24 08:29 Temperature Pulse Rate 77 Respiratory Rate Blood Pressure Pulse Oximetry 96 96 Oxygen Delivery Nasal Cannula Nasal Cannula Oxygen Flow Rate 2 2 06/01/24 08:29 06/01/24 08:40 06/01/24 11:30 Temperature Pulse Rate 85 87 91 Respiratory Rate 22 H 20 20 Blood Pressure Pulse Oximetry Oxygen Delivery Oxygen Flow Rate 06/01/24 11:42 06/01/24 12:00 06/01/24 14:13 Temperature Pulse Rate 88 90 86 Respiratory Rate 16 20 Blood Pressure Pulse Oximetry Oxygen Delivery Oxygen Flow Rate 06/01/24 14:23 06/01/24 16:00 06/01/24 17:16 Temperature 98.3 F Pulse Rate 87 93 93 Respiratory Rate 20 18 Blood Pressure 117/68 Pulse Oximetry 96 Oxygen Delivery Oxygen Flow Rate Intake/Output Intake/Output: Intake & Output 05/29/24 05/30/24 05/31/24 06/01/24 23:59 23:59 23:59 23:59 Intake Total 1050 720 580 780 Output Total 20 400 1800 Balance 1050 700 180 -1020 Meds/Results Medications: Active Medications Generic Name Dose Route Start Last Admin Trade Name Freq PRN Reason Stop Dose Admin Acetaminophen 650 mg 05/31/24 10:36 05/31/24 11:02 Acetaminophen 325 Mg Tablet PO 650 mg Q6H PRN Administration Mild Pain (1-3) or Fever Acetylcysteine 600 mg 06/01/24 21:00 Acetylcysteine 20% Inhal Soln 800 Mg/4 Ml Vial PO Q12HR TONIO Albuterol/Ipratropium 3 ml 05/31/24 12:00 06/01/24 14:13 Ipratropium 0.5 Mg/Albuterol Sulfate 2.5 Mg Ampul.Neb 3 Ml INHALATION 3 ml Q4HRT TONIO Administration Amoxicillin/Clavulanate Potassium 1 tablet 05/31/24 09:00 06/01/24 09:01 Amoxicillin/Clavulanate K 875-125 Mg Tab PO 06/05/24 08:59 1 tablet Q12HR OTNIO Administration Aspirin 81 mg 05/30/24 09:00 06/01/24 09:02 Aspirin 81 Mg Enteric Tablet PO 81 mg QAM TONIO Administration Clorazepate Dipotassium 3.75 mg 05/30/24 09:00 06/01/24 12:14 Clorazepate Dipotassium (*Crx) 3.75 Mg Tablet PO 3.75 mg TID TONIO Administration Doxycycline Hyclate 100 mg 05/31/24 09:00 06/01/24 09:01 Doxycycline Hyclate 100 Mg Tablet PO 06/05/24 08:59 100 mg Q12HR TONIO Administration Fluphenazine HCl 5 mg 05/30/24 09:00 06/01/24 12:14 Fluphenazine Hcl 5 Mg Tablet PO 5 mg TID TONIO Administration Guaifenesin/Dextromethorphan 10 ml 05/30/24 06:00 06/01/24 12:14 Guaifenesin/Dextromethorphan 10 Ml Udc PO 10 ml Q6HR TONIO Administration Nicotine 1 patch 05/30/24 09:00 06/01/24 09:02 Nicotine (*Pbkc) 21 Mg Patch TRANSDERM 1 patch DAILY TONIO Administration Oxycodone HCl 5 mg 05/31/24 10:36 Oxycodone Hcl (*Crx) 5 Mg Tab Ir PO Q6H PRN Pain Rated 7-10 Phenytoin Sodium 100 mg 05/30/24 09:00 06/01/24 12:14 Phenytoin Sodium 100 Mg Extended Release Cap PO 100 mg TID TONIO Administration Radiology Results: ITS Impressions Chest X-Ray 05/29/24 20:58 IMPRESSION: No acute cardiopulmonary process. Chest CT 05/30/24 05:25 Impression: Scattered areas of tree-in-bud opacity with several slightly more confluent areas of consolidation left upper lobe. Findings are compatible small airways infection with superimposed patchy left upper lobe pneumonia. Mild emphysema. Acute fractures of the right eighth and ninth ribs. Venous Doppler Study 05/31/24 12:20 IMPRESSION: 1. No deep venous thrombosis. Modified Barium Swallow 06/01/24 15:28 IMPRESSION: 1. Laryngeal penetration. 2. Please refer to the speech therapy report for recommendations. Labs Labs: Laboratory Results - last 24 hr 06/01/24 04:44 WBC 6.9 RBC 3.75 L Hgb 11.9 L Hct 37.3 L MCV 99.5 MCH 31.7 MCHC 31.9 L RDW 12.7 Plt Count 479 H MPV 9.1 Immature Gran % (Auto) 0.7 H Neut % (Auto) 65.6 Lymph % (Auto) 18.1 L [place] % (Auto) 12.7 H Eos % (Auto) 2.6 Baso % (Auto) 0.3 Lymph # (Auto) 1.25 [place] # (Auto) 0.9 H Eos # (Auto) 0.2 Baso # (Auto) 0.0 Abs Immat Gran (auto) 0.05 H Absolute Neuts (auto) 4.5 Absolute Nucleated RBC 0.000 Nucleated RBC % 0.0 Sodium 139 Potassium 4.0 Chloride 100 Carbon Dioxide 35 H Anion Gap 4 BUN 12 Creatinine 0.74 Estim Creat Clear Calc 66 Estimated GFR > 60 Glucose 99 Calcium 8.6 Magnesium 1.8 Total Bilirubin 0.5 AST 35 ALT 40 Alkaline Phosphatase 90 Total Protein 6.0 L Albumin 3.0 L Quality VTE Prophylaxis VTE prophylaxis: mechanical ordered Hospitalist MIPS Advance Care Plan I have confirmed that the patient's Advanced Care Plan is present, code status is documented, or surrogate decision maker is listed in patient medical record.: Yes Medication Reconciliation I have utilized all available resources to obtain, update and review the patients current medications (includes all prescriptions, OTC, herbals, cannabis, and nutritional supplements).: Yes
[2024-06-02] VITALS (23 sets, daily range): BP systolic 113–127; BP diastolic 67–74; PULSE 80–103; RESP 16–20; TEMP 36.6; O2SAT 92–98
[2024-06-02] MEDS: IPRATROPIUM 0.5 MG/ALBUTEROL SULFATE 2.5 MG AMPUL.NEB 3 ML INHALATION ×5 (03:54→22:57)
[2024-06-02 05:35] LABS: Basophils Percent Auto 0.4 % (0.2-1.2); Eosinophils Absolute Auto 0.1 K/mm3 (0-0.3); Eosinophils Percent Auto 1.4 % (0-4.4); Hematocrit 38.7 % (42.0-52.0); Hemoglobin 12.4 g/dL (14.0-18.0); Immature Granulocyte Absolute 0.07 K/mm3 (0.00-0.031); Immature Granulocyte Percent A 0.9 % (0-0.5); Lymphocytes Percent Auto 20.3 % (18.3-44.2); Mean Corpuscular Hemoglobin 31.5 pg (26-34); Mean Corpuscular Volume 98.2 fl (80-100); Mean Platelet Volume 8.8 fl (7.4-10.4); Neutrophils Absolute Auto 4.7 K/mm3 (1.3-6.7); Platelet Count Result 524 k/mm3 (150-375); Red Blood Count 3.94 M/mm3 (4.6-6.20); Red Cell Distribution Width 12.7 % (11.5-14.5); White Blood Count 7.4 K/mm3 (4.5-10.0)
[2024-06-02] MEDS: guaiFENesin/DEXTROMETHORPHAN 10 ML UDC PO ×4 (05:35→23:43)
[2024-06-02 05:48] LABS: Alanine Aminotransferase 41 U/L (6-50); Albumin Level 3.1 g/dL (3.5-5.1); Alkaline Phosphatase 93 U/L (38-126); Anion Gap 6 mmol/L (4-12); Aspartate Amino Transferase 32 U/L (17-59); Bilirubin,Total 0.5 mg/dL (0.2-1.3); Blood Urea Nitrogen 21 mg/dL (9-20); Calcium 8.6 mg/dL (8.4-10.2); Carbon Dioxide 32 mmol/L (22-30); Chloride 101 mmol/L (98-107); Estimated CRCL calculation 67 ml/min; Estimated Glomerular Filt Rate > 60; Glucose 98 mg/dL (65-110); Potassium 3.7 mmol/L (3.4-5.0); Sodium 139 mmol/L (137-145)
--- NOTE | 2024-06-02 07:27 | P.DS_ITS ---
DS: Admitting Diagnosis Discharge Date 06/02/2024 Admitting Diagnosis Shortness of Breath DS: Discharge Diagnosis Discharge Diagnosis (1) Influenza A: Code(s): J10.1 - Influenza due to other identified influenza virus with other respiratory manifestations Status: Acute Assessment and Plan: Continue with symptomatic management Discontinued methylprednisone Completed Prednisone taper tylenol prn for fever see below (2) Pneumonia: Code(s): J18.9 - Pneumonia, unspecified organism Status: Acute Assessment and Plan: COPD and smoker -as seen on CT - Scattered areas of tree-in-bud opacity with several slightly more confluent areas of consolidation left upper lobe. Findings are compatible small airways infection with superimposed patchy left upper lobe pneumonia. -discontinue cefepime and vancomycin -status post BiPAP -currently on 2 L nasal cannula -started amoxicillin and doxycycline for 5 days -nasal MRSA negative -continue nebulizing treatment -nicotine patch -consider pulmonology consult (3) Schizophrenia: Qualifiers: Schizophrenia type: unspecified Qualified Code(s): F20.9 - Schizophrenia, unspecified Code(s): F20.9 - Schizophrenia, unspecified Status: Acute Assessment and Plan: continue home medications (4) Seizure disorder: Code(s): G40.909 - Epilepsy, unspecified, not intractable, without status epilepticus Status: Chronic Assessment and Plan: Continue medications (5) COPD (chronic obstructive pulmonary disease): Qualifiers: COPD type: unspecified COPD Qualified Code(s): J44.9 - Chronic obstructive pulmonary disease, unspecified Code(s): J44.9 - Chronic obstructive pulmonary disease, unspecified Status: Chronic Assessment and Plan: As above (6) Dyslipidemia: Code(s): E78.5 - Hyperlipidemia, unspecified Status: Acute Assessment and Plan: Continue medications (7) Rib fracture: Qualifiers: Encounter type: initial encounter Rib fracture type: multiple ribs Fracture type: closed Laterality: right Qualified Code(s): S22.41XA - Multiple fractures of ribs, right side, initial encounter for closed fracture Code(s): S22.39XA - Fracture of one rib, unspecified side, initial encounter for closed fracture Status: Acute Assessment and Plan: Consulted Ortho and advised conservative management CT shows acute fracture of right 8th and 9th ribs Incentive spirometry Aggressive pulmonary toilet DS: Summary Hospital Course Hospital Course: 73-year-old male with medical history of Seizure disporder, Schizophrenia, impaired mental alertness, COPD with heavy smoking with no oxygen requirement at home that presented emergency department for complaint worsening shortness of breath. Patient reports that he had a cough, but he denies any fever chills. He denies any nausea, vomiting or diarrhea any chest pain. On arrival to the ER patient vital signs noted temp 98.6, blood pressure 117/71, pulse 104, resp 21, 84% on room air but did improve on 4 L. Emergency department workup noted ABG did show pH of 7.323, O2 73.5 HC03 28.9, PO2 93.4, and PCO2 of 56.9. Patient was placed on BiPAP 14 of 7 and was able a titrated down to 24% FiO2. White blood cell count was 9.5, hemoglobin 14.1, hematocrit 43.2, platelets 446. BNP 740, BUN 21 creatinine 0.91 with a GFR greater than 60. Patient is positive for influenza a, chest x-ray shows no acute cardiopulmonary abnormality but CT scan was ordered. CT chest noted Scattered areas of tree-in-bud opacity with several slightly more confluent areas of consolidation left upper lobe. Findings are compatible small airways infection with superimposed patchy left upper lobe pneumonia. Mild emphysema. Acute fractures of the right eighth and ninth ribs. Patient was treated with 5 mg of nebulized albuterol and this did open up his lungs, but his sounds of breathing did appear to worsen. Patient was treated with a 2nd 5 mg of nebulized albuterol. Patient was started on cefepime and vancomycin for the pneumonia, patient was given Solu-Medrol. The patient continued to tolerate the BiPAP well, showed some improvement, and was admitted for further management. 05/30/24-this a.m. patient remains on BiPAP, he is tolerating this well. He denies any fever chills, he denies any chest pain or nausea vomiting or diarrhea. He states he has always had a cough, he reports cough is nonproductive and worse than at home. He does state that his shortness of breath is somewhat better this morning. I assumed care on 05/31. The patient had right-sided rib fractures 8 and 9, which were found on the CT scan of the chest. Orthopedics recommended conservative treatment, and no follow-up was needed unless any problem arose.Ordered incentive spirometry and advised aggressive pulmonary toilet.. Regarding respiratory distress, pulmonology was consulted, and they agreed with the antibiotic choice. The patient will complete Augmentin and doxycycline until 4. 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 The patient underwent a swallow study. The patient has evidence of choking. I spoke to his brother, Kevin, who is the POA. He reports that his younger brother, Mr. Corral, also participates in his medical decision. According to Mr. Brown, the patient wanted not to be resuscitated, but he wants to confirm with his brother, Mr. Corral and will inform.We will discuss the goals of care again with his brothers, Kevin and Ellis. He has added Mucomyst. Currently, the patient is saturating well on a 1 L nasal cannula. Preliminary blood culture shows no growth. Discontinued cefepime and started Amox/clav and doxycycline for 5 days. Discontinued methylprednisone and prednisone taper.Other than smoking one pack per day and schizophrenia, there is no significant medical history. Denies using any nasal oxygen at home. Reviewed his home medication, which shows the patient is taking fluticasone furoate/vilanterol inhalation and albuterol rescue inhaler.Ordered Home O2 evaluation for discharge Status at Discharge Cognitive/behavioral status at discharge: Stable Time Spent with Patient Time attestation: Total time spent providing and/or coordinating discharge services: 45 minute Exam Const: General: cooperative, no acute distress, alert, awake and ill appearing Orientation/consciousness: oriented to person, oriented to place and oriented to time Limitations: other limitations (cognitive level due to medical history) HENMT: Head: normal to inspection and normocephalic Eyes: General: appearance normal, both eyes and all related structures Neck: Neck: normal visual inspection, full ROM and no lymphadenopathy Chest: Chest palpation & inspection: normal inspection of the chest Resp: Effort & Inspection: normal respiratory effort and able to speak in complete sentences Auscultation: rhonchi upper bilaterally and diminished lung sounds bilateral in the lower lung clarke Cardio: Jugular venous distension: no JVD Rate: tachycardic Rhythm: regular rhythm Heart sounds: S1 normal heart sound present and S2 normal heart sound present Peripheral pulses: Peripheral pulses 2+ throughout GI: Inspection: normal to inspection Auscultation: normal bowel sounds Skin: General skin exam: normal color and no rashes or lesions noted Neuro: General: oriented to person, oriented to place, oriented to time, moves all extremities and Unable to assess gait Cranial nerves: Yes CN's II-XII intact bilaterally Speech: normal speech Gait exam (Neuro): Unable to assess gait Extrem: General: full ROM Psych: Appearance: grossly normal Speech and movement: Normal speech and movement present Affect: normal affect Attitude: cooperative DS: Data Data Completed and Pending Labs on day of discharge: Labs from last 24 hours 06/02/24 05:00 WBC 7.4 RBC 3.94 L Hgb 12.4 L Hct 38.7 L MCV 98.2 MCH 31.5 MCHC 32.0 RDW 12.7 Plt Count 524 H MPV 8.8 Immature Gran % (Auto) 0.9 H Neut % (Auto) 63.0 Lymph % (Auto) 20.3 [place] % (Auto) 14.0 H Eos % (Auto) 1.4 Baso % (Auto) 0.4 Lymph # (Auto) 1.50 [place] # (Auto) 1.0 H Eos # (Auto) 0.1 Baso # (Auto) 0.0 Abs Immat Gran (auto) 0.07 H Absolute Neuts (auto) 4.7 Absolute Nucleated RBC 0.000 Nucleated RBC % 0.0 Sodium 139 Potassium 3.7 Chloride 101 Carbon Dioxide 32 H Anion Gap 6 BUN 21 H Creatinine 0.72 Estim Creat Clear Calc 67 Estimated GFR > 60 Glucose 98 Calcium 8.6 Magnesium 2.0 Total Bilirubin 0.5 AST 32 ALT 41 Alkaline Phosphatase 93 Total Protein 6.0 L Albumin 3.1 L Preliminary micro results at discharge 05/29/24 23:12 Blood Culture - Preliminary Blood 05/29/24 22:15 Blood Culture - Preliminary Blood Discharge Plan Discharge Attending physician on discharge: Raul Hooker Consulting providers: Jordy Montes; Harry Peoples Discharging Clinician: Raul Hooker Anticipated Discharge Date/Time: 06/02/24 13:28 Patient Disposition: Home, Self-Care Activity: as tolerated Diet: other - see discharge instructions Discharge Instructions: Recommend thin liquids. Completed laryngeal elevation/tongue base exercises. Complete Augmentin and doxycycline until 06/05 Advise smoking cessation Please see follow-up with the PCP for supplement oxygen continuation Check blood pressure 1 to 2 times a day. Record and bring into your doctor for review. Call your doctor if your blood pressure is greater than 180/110 or less than 90/45. Walk with cane or other assist device. Take precautions to avoid falls. Rise slowly from a lying or sitting position. Pause before standing or walking. Contact your doctor or call 911 and come to the Emergency Room if you have any type of trauma, lightheadedness with standing or other worrisome symptoms. Avoid NSAIDs (ibuprofen, naproxen, Aleve). Tylenol is safe to take. Follow-up with your primary care provider in 1-2 weeks. Please call for appointment. Follow-up with pulmonology in 2-4 weeks. Please call for an appointment. Thank you for using [facility] for your health care needs. Patient Instructions: Antibiotic Form Patient Language: Sami Stand Alone Forms: General Discharge Information Follow-up/Referrals: Jordy Montes MD [Physician] - Discharge Medications: New dextromethorphan-guaifenesin 10-100 mg/5 mL Syrup 10 ml PO Q6HR Qty: 30 0RF doxycycline hyclate 100 mg Tablet 100 mg PO Q12HR Qty: 14 0RF Rx Instructions: Please complete the course on June 05 amoxicillin-pot clavulanate 875-125 mg tablet 1 tablet PO Q12H Qty: 14 0RF Rx Instructions: Please complete the course on June 05, 2024 Continued vitamin K2 45 mcg capsule 45 mcg PO DAILY fluphenazine HCl 5 mg tablet 5 mg PO TID clorazepate dipotassium 3.75 mg tablet 3.75 mg PO TID atorvastatin 10 mg tablet 10 mg PO QHS Qty: 90 1RF Adult Aspirin 81 mg Tablet 81 mg PO DAILY multivit with min-folic acid [Adult Multivitamin Extra VitD3] 200 mcg Tablet,Chewable 1 tablet PO DAILY glucosamine sulfate [Glucosamine] 500 mg Tablet 1,000 mg PO DAILY phenytoin sodium extended 100 mg capsule 100 mg PO TID Qty: 270 1RF albuterol sulfate 90 mcg/actuation HFA aerosol inhaler 1 - 2 puff INHALATION Q4-6H PRN (Reason: shortness of breath or wheezing) Qty: 8.5 5RF fluticasone furoate-vilanterol [Breo Ellipta] 200-25 mcg/dose blister with device 1 inh inhalation DAILY Qty: 180 1RF Date of admission: 05/30/24 07:57 Primary Care Provider: Ana Evans Admitting Provider: Benito Correa Attending physician on admission: Benito Correa Condition: Stable
[2024-06-02] MEDS: CLORAZEPATE DIPOTASSIUM (*CRX) 3.75 MG TABLET PO ×3 (11:06→17:34)
[2024-06-02] MEDS: fluPHENAZine HCl 5 MG TABLET PO ×3 (11:06→17:34)
[2024-06-02] MEDS: PHENYTOIN SODIUM 100 MG EXTENDED RELEASE CAP PO ×3 (11:06→17:34)
[2024-06-02] MEDS: DOXYCYCLINE HYCLATE 100 MG TABLET PO ×2 (11:06→21:33)
[2024-06-02] MEDS: NICOTINE (*PBKC) 21 MG PATCH 1 PATCH TRANSDERM (11:07)
[2024-06-02] MEDS: AMOXICILLIN/CLAVULANATE K 875-125 MG TAB 1 TABLET PO ×2 (11:07→21:33)
[2024-06-02] MEDS: ASPIRIN 81 MG ENTERIC TABLET PO (11:07)
--- NOTE | 2024-06-02 13:47 | PM.IMPN ---
Progress Note: A&P Assessment and Plan (1) Influenza A: Code(s): J10.1 - Influenza due to other identified influenza virus with other respiratory manifestations Status: Acute Assessment and Plan: Continue with symptomatic management Discontinued methylprednisone Completed Prednisone taper tylenol prn for fever see below (2) Pneumonia: Code(s): J18.9 - Pneumonia, unspecified organism Status: Acute Assessment and Plan: COPD and smoker -as seen on CT - Scattered areas of tree-in-bud opacity with several slightly more confluent areas of consolidation left upper lobe. Findings are compatible small airways infection with superimposed patchy left upper lobe pneumonia. -discontinue cefepime and vancomycin -status post BiPAP -currently on 2 L nasal cannula -started amoxicillin and doxycycline for 5 days -nasal MRSA negative -continue nebulizing treatment -nicotine patch -consider pulmonology consult (3) Schizophrenia: Qualifiers: Schizophrenia type: unspecified Qualified Code(s): F20.9 - Schizophrenia, unspecified Code(s): F20.9 - Schizophrenia, unspecified Status: Acute Assessment and Plan: continue home medications (4) Seizure disorder: Code(s): G40.909 - Epilepsy, unspecified, not intractable, without status epilepticus Status: Chronic Assessment and Plan: Continue medications (5) COPD (chronic obstructive pulmonary disease): Qualifiers: COPD type: unspecified COPD Qualified Code(s): J44.9 - Chronic obstructive pulmonary disease, unspecified Code(s): J44.9 - Chronic obstructive pulmonary disease, unspecified Status: Chronic Assessment and Plan: As above (6) Dyslipidemia: Code(s): E78.5 - Hyperlipidemia, unspecified Status: Acute Assessment and Plan: Continue medications (7) Rib fracture: Qualifiers: Encounter type: initial encounter Fracture type: closed Laterality: right Rib fracture type: multiple ribs Qualified Code(s): S22.41XA - Multiple fractures of ribs, right side, initial encounter for closed fracture Code(s): S22.39XA - Fracture of one rib, unspecified side, initial encounter for closed fracture Status: Acute Assessment and Plan: Consulted Ortho and advised conservative management CT shows acute fracture of right 8th and 9th ribs Incentive spirometry Aggressive pulmonary toilet Subjective Date/time seen: 06/02/24 13:47 Interval history: Holding discharge due to home to eval and PT OT evaluation.Discussed with both of his brother and wanted to stay full code. Review of Systems Review of Systems: All systems reviewed & are unremarkable except as noted in HPI and below Constitutional: Constitutional: Reports fatigue and Reports malaise Eyes: Eyes: Reports as per HPI ENT: Reports system reviewed and no additional complaints, except as documented Cardiovascular: Cardiovascular: Reports no additional cardiovascular complaints and Reports dyspnea Respiratory: Respiratory: Reports as per HPI, Reports cough and Reports dyspnea Gastrointestinal: Gastrointestinal: Reports no additional gastrointestinal complaints Genitourinary: Genitourinary: Reports no additional male genitourinary complaints Musculoskeletal: Musculoskeletal: Reports no additional musculoskeletal complaints Integumentary/Breasts: Skin/Breast: Reports system reviewed and no additional complaints, except as docu Neurologic: Reports system reviewed and no additional complaints, except as documented Psychiatric: Psychiatric: Reports no additional psychiatric complaints Endocrine: Endocrine: Reports no additional endocrine complaints and Reports fatigue Hematologic/Lymphatic: Hematologic/Lymphatic: Reports no additional hematologic/lymphatic complaints Allergic/Immunologic: Allergic/Immunologic: Reports no additional allergic/immunologic complaints Exam Const: General: cooperative, no acute distress, alert, awake and ill appearing Orientation/consciousness: oriented to person, oriented to place and oriented to time Limitations: other limitations (cognitive level due to medical history) HENMT: Head: normal to inspection and normocephalic Eyes: General: appearance normal, both eyes and all related structures Neck: Neck: normal visual inspection, full ROM and no lymphadenopathy Chest: Chest palpation & inspection: normal inspection of the chest Resp: Effort & Inspection: normal respiratory effort and able to speak in complete sentences Auscultation: rhonchi upper bilaterally and diminished lung sounds bilateral in the lower lung clarke Cardio: Jugular venous distension: no JVD Rate: tachycardic Rhythm: regular rhythm Heart sounds: S1 normal heart sound present and S2 normal heart sound present Peripheral pulses: Peripheral pulses 2+ throughout GI: Inspection: normal to inspection Auscultation: normal bowel sounds Skin: General skin exam: normal color and no rashes or lesions noted Neuro: General: oriented to person, oriented to place, oriented to time, moves all extremities and Unable to assess gait Cranial nerves: Yes CN's II-XII intact bilaterally Speech: normal speech Gait exam (Neuro): Unable to assess gait Extrem: General: full ROM Psych: Appearance: grossly normal Speech and movement: Normal speech and movement present Affect: normal affect Attitude: cooperative Objective Data Vital Signs Vital Signs: Vital Signs - 24 hr 06/01/24 14:13 06/01/24 14:23 06/01/24 16:00 Temperature Pulse Rate 86 87 93 Respiratory Rate 20 20 Blood Pressure Pulse Oximetry Oxygen Delivery Oxygen Flow Rate 06/01/24 17:16 06/01/24 20:00 06/01/24 20:00 Temperature 98.3 F Pulse Rate 93 93 Respiratory Rate 18 Blood Pressure 117/68 Pulse Oximetry 96 96 Oxygen Delivery Nasal Cannula Oxygen Flow Rate 2 06/01/24 20:20 06/01/24 20:20 06/01/24 20:52 Temperature Pulse Rate 94 94 91 Respiratory Rate 20 20 Blood Pressure Pulse Oximetry 96 Oxygen Delivery Nasal Cannula Oxygen Flow Rate 2 06/01/24 21:52 06/02/24 00:00 06/02/24 03:55 Temperature 97.6 F Pulse Rate 95 92 84 Respiratory Rate 16 20 Blood Pressure 117/70 Pulse Oximetry 96 Oxygen Delivery Oxygen Flow Rate 06/02/24 03:58 06/02/24 04:00 06/02/24 04:02 Temperature Pulse Rate 81 89 Respiratory Rate 20 Blood Pressure Pulse Oximetry 98 Oxygen Delivery Nasal Cannula Oxygen Flow Rate 2 06/02/24 05:56 06/02/24 07:26 06/02/24 07:26 Temperature 97.8 F Pulse Rate 92 80 Respiratory Rate 16 20 Blood Pressure 113/67 Pulse Oximetry 96 95 Oxygen Delivery Nasal Cannula Oxygen Flow Rate 1 06/02/24 07:35 06/02/24 08:00 06/02/24 08:00 Temperature Pulse Rate 80 85 Respiratory Rate 20 Blood Pressure Pulse Oximetry 95 Oxygen Delivery Nasal Cannula Oxygen Flow Rate 1 06/02/24 12:00 06/02/24 12:15 06/02/24 12:22 Temperature Pulse Rate 101 H 102 H 101 H Respiratory Rate 18 18 Blood Pressure Pulse Oximetry Oxygen Delivery Oxygen Flow Rate Intake/Output Intake/Output: Intake & Output 05/30/24 05/31/24 06/01/24 06/02/24 23:59 23:59 23:59 23:59 Intake Total 193 015 4018 250 Output Total 20 400 1800 450 Balance 700 180 -780 -200 Meds/Results Medications: Active Medications Generic Name Dose Route Start Last Admin Trade Name Freq PRN Reason Stop Dose Admin Acetaminophen 650 mg 05/31/24 10:36 05/31/24 11:02 Acetaminophen 325 Mg Tablet PO 650 mg Q6H PRN Administration Mild Pain (1-3) or Fever Acetylcysteine 600 mg 06/01/24 21:00 06/02/24 07:26 Acetylcysteine 20% Inhal Soln 800 Mg/4 Ml Vial PO Not Given Q12HR TONIO Albuterol/Ipratropium 3 ml 05/31/24 12:00 06/02/24 12:14 Ipratropium 0.5 Mg/Albuterol Sulfate 2.5 Mg Ampul.Neb 3 Ml INHALATION 3 ml Q4HRT TONIO Administration Amoxicillin/Clavulanate Potassium 1 tablet 05/31/24 09:00 06/02/24 11:07 Amoxicillin/Clavulanate K 875-125 Mg Tab PO 06/05/24 08:59 1 tablet Q12HR TONIO Administration Aspirin 81 mg 05/30/24 09:00 06/02/24 11:07 Aspirin 81 Mg Enteric Tablet PO 81 mg QAM TONIO Administration Clorazepate Dipotassium 3.75 mg 05/30/24 09:00 06/02/24 13:18 Clorazepate Dipotassium (*Crx) 3.75 Mg Tablet PO 3.75 mg TID TONIO Administration Doxycycline Hyclate 100 mg 05/31/24 09:00 06/02/24 11:06 Doxycycline Hyclate 100 Mg Tablet PO 06/05/24 08:59 100 mg Q12HR TONIO Administration Fluphenazine HCl 5 mg 05/30/24 09:00 06/02/24 13:18 Fluphenazine Hcl 5 Mg Tablet PO 5 mg TID TONIO Administration Guaifenesin/Dextromethorphan 10 ml 05/30/24 06:00 06/02/24 13:18 Guaifenesin/Dextromethorphan 10 Ml Udc PO 10 ml Q6HR TONIO Administration Nicotine 1 patch 05/30/24 09:00 06/02/24 11:07 Nicotine (*Pbkc) 21 Mg Patch TRANSDERM 1 patch DAILY TONIO Administration Oxycodone HCl 5 mg 05/31/24 10:36 Oxycodone Hcl (*Crx) 5 Mg Tab Ir PO Q6H PRN Pain Rated 7-10 Phenytoin Sodium 100 mg 05/30/24 09:00 06/02/24 13:18 Phenytoin Sodium 100 Mg Extended Release Cap PO 100 mg TID TONIO Administration Radiology Results: ITS Impressions Chest X-Ray 05/29/24 20:58 IMPRESSION: No acute cardiopulmonary process. Chest CT 05/30/24 05:25 Impression: Scattered areas of tree-in-bud opacity with several slightly more confluent areas of consolidation left upper lobe. Findings are compatible small airways infection with superimposed patchy left upper lobe pneumonia. Mild emphysema. Acute fractures of the right eighth and ninth ribs. Venous Doppler Study 05/31/24 12:20 IMPRESSION: 1. No deep venous thrombosis. Modified Barium Swallow 06/01/24 15:28 IMPRESSION: 1. Laryngeal penetration. 2. Please refer to the speech therapy report for recommendations. Labs Labs: Laboratory Results - last 24 hr 06/02/24 05:00 WBC 7.4 RBC 3.94 L Hgb 12.4 L Hct 38.7 L MCV 98.2 MCH 31.5 MCHC 32.0 RDW 12.7 Plt Count 524 H MPV 8.8 Immature Gran % (Auto) 0.9 H Neut % (Auto) 63.0 Lymph % (Auto) 20.3 [place] % (Auto) 14.0 H Eos % (Auto) 1.4 Baso % (Auto) 0.4 Lymph # (Auto) 1.50 [place] # (Auto) 1.0 H Eos # (Auto) 0.1 Baso # (Auto) 0.0 Abs Immat Gran (auto) 0.07 H Absolute Neuts (auto) 4.7 Absolute Nucleated RBC 0.000 Nucleated RBC % 0.0 Sodium 139 Potassium 3.7 Chloride 101 Carbon Dioxide 32 H Anion Gap 6 BUN 21 H Creatinine 0.72 Estim Creat Clear Calc 67 Estimated GFR > 60 Glucose 98 Calcium 8.6 Magnesium 2.0 Total Bilirubin 0.5 AST 32 ALT 41 Alkaline Phosphatase 93 Total Protein 6.0 L Albumin 3.1 L Quality VTE Prophylaxis VTE prophylaxis: mechanical ordered Hospitalist MIPS Advance Care Plan I have confirmed that the patient's Advanced Care Plan is present, code status is documented, or surrogate decision maker is listed in patient medical record.: Yes Medication Reconciliation I have utilized all available resources to obtain, update and review the patients current medications (includes all prescriptions, OTC, herbals, cannabis, and nutritional supplements).: Yes
--- NOTE | 2024-06-02 16:29 | PCRCNOTE ---
Home oxygen eval completed on room air. Patient ambulated in the hallway on room air. Pt never required oxygen before, during, or after walk. RN notified.
--- NOTE | 2024-06-02 17:00 | P.PNPL_ITS ---
Progress Note: A&P Assessment and Plan (1) COPD (chronic obstructive pulmonary disease): Qualifiers: COPD type: unspecified COPD Qualified Code(s): J44.9 - Chronic obstructive pulmonary disease, unspecified Code(s): J44.9 - Chronic obstructive pulmonary disease, unspecified Status: Chronic Assessment and Plan: This 73-year-old man with history of psychiatric illness chronically on antipsychotic medications, seizure disorder and impaired mental alertness presented with shortness of breath hypoxemia related to underlying COPD exacerbation and influenza A viral infection. Patient was found to have some tree in bud opacities and small infiltrates on chest x-rays most likely related to influenza viral infection. He has been treated for COPD exacerbations with acute hypercapnic respiratory failure and has improved following treatment with bronchodilators and steroids. He still on steroids. His hypercapnia is most likely acute related to COPD exacerbation as review of previous laboratory testing results showed no persisting elevation of total bicarbonate. Agree with current antibiotic regimen consisting of Augmentin and doxycycline. His viral illness began most likely few days prior to presenting to the emergency room and treatment with Tamiflu was not indicated. Plan: Continue the current antibiotic regimen using Augmentin and doxycycline. Maintain the use of short-acting bronchodilators. He does not need BiPAP support at night any longer. Stop Mucomyst. He passed his Home O2 study, does not need O2 at rest or with exertion. PT OT ordered by hospitalist prior to his discharge. (2) Tobacco dependence: Code(s): F17.200 - Nicotine dependence, unspecified, uncomplicated Status: Chronic Assessment and Plan: Tobacco smoker prior to this admission; recommend tobacco cessation. He has been off tobacco 4-5 days, and he thinks this is a good time to stop. He lives with his brother Ellis who is not a smoker. (3) Pneumonia: Code(s): J18.9 - Pneumonia, unspecified organism Status: Acute Assessment and Plan: He has infiltrates on chest CT; tree in bud opacities and small infiltrates on chest x-rays most likely related to influenza viral infection. He has improved, now on oral antibiotics Augmentin and doxycycline. (4) Schizophrenia: Qualifiers: Schizophrenia type: unspecified Qualified Code(s): F20.9 - Schizophrenia, unspecified Code(s): F20.9 - Schizophrenia, unspecified Status: Acute Assessment and Plan: stable condition; psychiatric illness chronically on antipsychotic medications, seizure disorder and impaired mental alertness (5) Influenza A: Code(s): J10.1 - Influenza due to other identified influenza virus with other respiratory manifestations Status: Acute Assessment and Plan: admitted with (+) influenza A on swab 05/29, was too late to get antiviral treatment. (6) Dysphagia causing pulmonary aspiration with swallowing: Code(s): R13.19 - Other dysphagia Status: Acute Assessment and Plan: He has dysphagia secondary to laryngeal elevation and tongue base retraction. ST noted that he had flash laryngeal penetration without digna aspiration, tolerated the speech exercises but the therapist said that he would need encouragement and help repeating these at home. Today June 02, he had Speech Therapy with laryngeal elevation exercise and tongue base exercises. Speech therapy completed 2 sets of 10 tongue base exercises using words with the letter k . Also 2 sets of 5 pitch glides to target laryngeal elevation performance. He received copies of these exercises to do at home, 10 repetitions of each exercise 2-3 times a day at home. He will need help performing these. He does not have obvious aspiration. He needs to have someone at home to learn these skills and practice with the patient. Subjective Date/time seen: 06/02/24 17:00 Interval history: 06/02/24: pulmonary hospital follow up; Everardo Diaz is a 73-year old man with COPD, smoking, schizophrenia, admitted with Influenza A needing 2 L/min O2 on May 28. He was weaned to Room Air. He had a modified barium swallow today, had flash laryngeal penetration without aspiration. Speech Therapy taught him swallow exercises. He needs PT/OT before discharge, was ordered. 06/01/24; Patient is again slow to answer questions. He stated he has no new respiratory symptoms. Overall he is feeling better. He use BiPAP support last night. DATA * 05/30/2024: chest CT; Scattered areas of tree-in-bud opacity with several slightly more confluent areas of consolidation left upper lobe. Findings are compatible small airways infection with superimposed patchy left upper lobe pneumonia. Mild emphysema. Acute fractures of the right eighth and ninth ribs. * 05/31/24; ABG pH 7.411, pCO2 55.6, PO2 60.3, HC03 34.5, saturation 93.5% on 2 L * 06/01/2024; modified barium swallow shows flash laryngeal penetration several times without actual aspiration. He had a cough at one point but was not due to substances being in the airway. He was able to perform exercises for 15 minutes, was given sheets with instructions so he could do this at home 10 repetitions 2- 3 times a day. Review of Systems Review of Systems: All systems reviewed & are unremarkable except as noted in HPI and below Exam Narrative: GEN: Arousable, thin, leaning in bed, arouses to voice; not in distress. He is on room air with sat 93%. HEENT: pupils are equal, EOMI, symmetrical face NECK: Trachea is midline CHEST: Equal air entry, symmetric excursion, rare rhonchi which I attribute to his posture, leaning forward, not taking a deep breath. CV: Regular S1S2 no m/g/r Extremities : no clubbing, cyanosis, or edema PSYCH: normal thought and speech Objective Data Vital Signs Vital Signs: Vital Signs - 24 hr 06/01/24 17:16 06/01/24 20:00 06/01/24 20:00 Temperature 36.8 C Pulse Rate 93 93 Respiratory Rate 18 Blood Pressure 117/68 Pulse Oximetry 96 96 Oxygen Delivery Nasal Cannula Oxygen Flow Rate 2 Fraction of Inspired Oxygen 06/01/24 20:20 06/01/24 20:20 06/01/24 20:52 Temperature Pulse Rate 94 94 91 Respiratory Rate 20 20 Blood Pressure Pulse Oximetry 96 Oxygen Delivery Nasal Cannula Oxygen Flow Rate 2 Fraction of Inspired Oxygen 06/01/24 21:52 06/02/24 00:00 06/02/24 03:55 Temperature 36.4 C Pulse Rate 95 92 84 Respiratory Rate 16 20 Blood Pressure 117/70 Pulse Oximetry 96 Oxygen Delivery Oxygen Flow Rate Fraction of Inspired Oxygen 06/02/24 03:58 06/02/24 04:00 06/02/24 04:02 Temperature Pulse Rate 81 89 Respiratory Rate 20 Blood Pressure Pulse Oximetry 98 Oxygen Delivery Nasal Cannula Oxygen Flow Rate 2 Fraction of Inspired Oxygen 06/02/24 05:56 06/02/24 07:26 06/02/24 07:26 Temperature 36.6 C Pulse Rate 92 80 Respiratory Rate 16 20 Blood Pressure 113/67 Pulse Oximetry 96 95 Oxygen Delivery Nasal Cannula Oxygen Flow Rate 1 Fraction of Inspired Oxygen 06/02/24 07:35 06/02/24 08:00 06/02/24 08:00 Temperature Pulse Rate 80 85 Respiratory Rate 20 Blood Pressure Pulse Oximetry 95 Oxygen Delivery Nasal Cannula Oxygen Flow Rate 1 Fraction of Inspired Oxygen 06/02/24 12:00 06/02/24 12:15 06/02/24 12:22 Temperature Pulse Rate 101 H 102 H 101 H Respiratory Rate 18 18 Blood Pressure Pulse Oximetry Oxygen Delivery Oxygen Flow Rate Fraction of Inspired Oxygen 06/02/24 14:20 06/02/24 14:25 06/02/24 14:29 Temperature 36.6 C Pulse Rate 98 Respiratory Rate 20 Blood Pressure 123/69 Pulse Oximetry 95 94 92 Oxygen Delivery Room Air Room Air Oxygen Flow Rate Fraction of Inspired Oxygen 21 21 06/02/24 14:30 Temperature Pulse Rate Respiratory Rate Blood Pressure Pulse Oximetry 93 Oxygen Delivery Room Air Oxygen Flow Rate Fraction of Inspired Oxygen 21 Intake/Output Intake/Output: Intake & Output 05/30/24 05/31/24 06/01/24 06/02/24 23:59 23:59 23:59 23:59 Intake Total 144 847 1525 610 Output Total 20 400 1800 450 Balance 700 180 -780 160 Meds/Results Medications: Active Medications Generic Name Dose Route Start Last Admin Trade Name Freq PRN Reason Stop Dose Admin Acetaminophen 650 mg 05/31/24 10:36 05/31/24 11:02 Acetaminophen 325 Mg Tablet PO 650 mg Q6H PRN Administration Mild Pain (1-3) or Fever Acetylcysteine 600 mg 06/01/24 21:00 06/02/24 07:26 Acetylcysteine 20% Inhal Soln 800 Mg/4 Ml Vial PO Not Given Q12HR TONIO Albuterol/Ipratropium 3 ml 05/31/24 12:00 06/02/24 12:14 Ipratropium 0.5 Mg/Albuterol Sulfate 2.5 Mg Ampul.Neb 3 Ml INHALATION 3 ml Q4HRT TONIO Administration Amoxicillin/Clavulanate Potassium 1 tablet 05/31/24 09:00 06/02/24 11:07 Amoxicillin/Clavulanate K 875-125 Mg Tab PO 06/05/24 08:59 1 tablet Q12HR TONIO Administration Aspirin 81 mg 05/30/24 09:00 06/02/24 11:07 Aspirin 81 Mg Enteric Tablet PO 81 mg QAM TONIO Administration Clorazepate Dipotassium 3.75 mg 05/30/24 09:00 06/02/24 13:18 Clorazepate Dipotassium (*Crx) 3.75 Mg Tablet PO 3.75 mg TID TONIO Administration Doxycycline Hyclate 100 mg 05/31/24 09:00 06/02/24 11:06 Doxycycline Hyclate 100 Mg Tablet PO 06/05/24 08:59 100 mg Q12HR TONIO Administration Fluphenazine HCl 5 mg 05/30/24 09:00 06/02/24 13:18 Fluphenazine Hcl 5 Mg Tablet PO 5 mg TID TONIO Administration Guaifenesin/Dextromethorphan 10 ml 05/30/24 06:00 06/02/24 13:18 Guaifenesin/Dextromethorphan 10 Ml Udc PO 10 ml Q6HR TONIO Administration Nicotine 1 patch 05/30/24 09:00 06/02/24 11:07 Nicotine (*Pbkc) 21 Mg Patch TRANSDERM 1 patch DAILY TONIO Administration Oxycodone HCl 5 mg 05/31/24 10:36 Oxycodone Hcl (*Crx) 5 Mg Tab Ir PO Q6H PRN Pain Rated 7-10 Phenytoin Sodium 100 mg 05/30/24 09:00 06/02/24 13:18 Phenytoin Sodium 100 Mg Extended Release Cap PO 100 mg TID TONIO Administration Radiology Results: ITS Impressions Chest X-Ray 05/29/24 20:58 IMPRESSION: No acute cardiopulmonary process. Chest CT 05/30/24 05:25 Impression: Scattered areas of tree-in-bud opacity with several slightly more confluent areas of consolidation left upper lobe. Findings are compatible small airways infection with superimposed patchy left upper lobe pneumonia. Mild emphysema. Acute fractures of the right eighth and ninth ribs. Venous Doppler Study 05/31/24 12:20 IMPRESSION: 1. No deep venous thrombosis. Modified Barium Swallow 06/01/24 15:28 IMPRESSION: 1. Laryngeal penetration. 2. Please refer to the speech therapy report for recommendations. Labs Labs: Laboratory Results - last 24 hr 06/02/24 05:00 WBC 7.4 RBC 3.94 L Hgb 12.4 L Hct 38.7 L MCV 98.2 MCH 31.5 MCHC 32.0 RDW 12.7 Plt Count 524 H MPV 8.8 Immature Gran % (Auto) 0.9 H Neut % (Auto) 63.0 Lymph % (Auto) 20.3 [place] % (Auto) 14.0 H Eos % (Auto) 1.4 Baso % (Auto) 0.4 Lymph # (Auto) 1.50 [place] # (Auto) 1.0 H Eos # (Auto) 0.1 Baso # (Auto) 0.0 Abs Immat Gran (auto) 0.07 H Absolute Neuts (auto) 4.7 Absolute Nucleated RBC 0.000 Nucleated RBC % 0.0 Sodium 139 Potassium 3.7 Chloride 101 Carbon Dioxide 32 H Anion Gap 6 BUN 21 H Creatinine 0.72 Estim Creat Clear Calc 67 Estimated GFR > 60 Glucose 98 Calcium 8.6 Magnesium 2.0 Total Bilirubin 0.5 AST 32 ALT 41 Alkaline Phosphatase 93 Total Protein 6.0 L Albumin 3.1 L
[2024-06-03] VITALS (20 sets, daily range): BP systolic 105–130; BP diastolic 63–76; PULSE 84–104; RESP 16–20; TEMP 36.3–36.5; O2SAT 92–95
[2024-06-03] MEDS: ACETAMINOPHEN 325 MG TABLET 650 MG PO ×2 (01:58→21:13)
[2024-06-03] MEDS: IPRATROPIUM 0.5 MG/ALBUTEROL SULFATE 2.5 MG AMPUL.NEB 3 ML INHALATION ×5 (04:11→20:58)
[2024-06-03] MEDS: guaiFENesin/DEXTROMETHORPHAN 10 ML UDC PO ×4 (06:02→23:53)
[2024-06-03 06:13] LABS: Basophils Percent Auto 0.3 % (0.2-1.2); Eosinophils Absolute Auto 0.1 K/mm3 (0-0.3); Eosinophils Percent Auto 1.5 % (0-4.4); Hematocrit 41.7 % (42.0-52.0); Hemoglobin 13.3 g/dL (14.0-18.0); Immature Granulocyte Absolute 0.07 K/mm3 (0.00-0.031); Immature Granulocyte Percent A 0.8 % (0-0.5); Lymphocytes Absolute Auto 1.84 K/mm3 (0.9-3.2); Lymphocytes Percent Auto 20.8 % (18.3-44.2); Mean Corpuscular HGB Conc 31.9 g/dl (32-36); Mean Corpuscular Hemoglobin 31.3 pg (26-34); Mean Corpuscular Volume 98.1 fl (80-100); Mean Platelet Volume 8.7 fl (7.4-10.4); Monocytes Absolute Auto 1.1 K/mm3 (0.1-0.6); Monocytes Percent Auto 12.1 % (2.6-8.5); Neutrophils Absolute Auto 5.7 K/mm3 (1.3-6.7); Neutrophils Percent Auto 64.5 % (45.5-73.1); Platelet Count Result 555 k/mm3 (150-375); Red Blood Count 4.25 M/mm3 (4.6-6.20); Red Cell Distribution Width 12.7 % (11.5-14.5); White Blood Count 8.8 K/mm3 (4.5-10.0)
[2024-06-03 06:44] LABS: Alanine Aminotransferase 42 U/L (6-50); Albumin Level 3.3 g/dL (3.5-5.1); Alkaline Phosphatase 104 U/L (38-126); Anion Gap 4 mmol/L (4-12); Aspartate Amino Transferase 29 U/L (17-59); Bilirubin,Total 0.5 mg/dL (0.2-1.3); Blood Urea Nitrogen 25 mg/dL (9-20); Calcium 8.6 mg/dL (8.4-10.2); Carbon Dioxide 35 mmol/L (22-30); Chloride 99 mmol/L (98-107); Estimated CRCL calculation 49 ml/min; Estimated Glomerular Filt Rate > 60; Glucose 95 mg/dL (65-110); Magnesium 1.9 mg/dL (1.6-2.3); Sodium 138 mmol/L (137-145)
[2024-06-03] MEDS: AMOXICILLIN/CLAVULANATE K 875-125 MG TAB 1 TABLET PO ×2 (09:27→21:13)
[2024-06-03] MEDS: CLORAZEPATE DIPOTASSIUM (*CRX) 3.75 MG TABLET PO ×3 (09:28→17:22)
[2024-06-03] MEDS: DOXYCYCLINE HYCLATE 100 MG TABLET PO ×2 (09:28→21:13)
[2024-06-03] MEDS: NICOTINE (*PBKC) 21 MG PATCH 1 PATCH TRANSDERM (09:28)
[2024-06-03] MEDS: fluPHENAZine HCl 5 MG TABLET PO ×3 (09:28→17:22)
[2024-06-03] MEDS: PHENYTOIN SODIUM 100 MG EXTENDED RELEASE CAP PO ×3 (09:28→17:22)
[2024-06-03] MEDS: ASPIRIN 81 MG ENTERIC TABLET PO (09:31)
--- NOTE | 2024-06-03 13:17 | P.PNIM_ITS ---
Progress Note: A&P Assessment and Plan (1) Influenza A: Code(s): J10.1 - Influenza due to other identified influenza virus with other respiratory manifestations Status: Acute Assessment and Plan: Continue with symptomatic management Discontinued methylprednisone Completed Prednisone taper tylenol prn for fever see below (2) Pneumonia: Code(s): J18.9 - Pneumonia, unspecified organism Status: Acute Assessment and Plan: COPD and smoker -as seen on CT - Scattered areas of tree-in-bud opacity with several slightly more confluent areas of consolidation left upper lobe. Findings are compatible small airways infection with superimposed patchy left upper lobe pneumonia. -discontinue cefepime and vancomycin -status post BiPAP -currently on 2 L nasal cannula -started amoxicillin and doxycycline for 5 days -nasal MRSA negative -continue nebulizing treatment -nicotine patch -consider pulmonology consult (3) Schizophrenia: Qualifiers: Schizophrenia type: unspecified Qualified Code(s): F20.9 - Schizophrenia, unspecified Code(s): F20.9 - Schizophrenia, unspecified Status: Acute Assessment and Plan: continue home medications (4) Seizure disorder: Code(s): G40.909 - Epilepsy, unspecified, not intractable, without status epilepticus Status: Chronic Assessment and Plan: Continue medications (5) COPD (chronic obstructive pulmonary disease): Qualifiers: COPD type: unspecified COPD Qualified Code(s): J44.9 - Chronic obstructive pulmonary disease, unspecified Code(s): J44.9 - Chronic obstructive pulmonary disease, unspecified Status: Chronic Assessment and Plan: As above (6) Dyslipidemia: Code(s): E78.5 - Hyperlipidemia, unspecified Status: Acute Assessment and Plan: Continue medications (7) Rib fracture: Qualifiers: Encounter type: initial encounter Fracture type: closed Laterality: right Rib fracture type: multiple ribs Qualified Code(s): S22.41XA - Multiple fractures of ribs, right side, initial encounter for closed fracture Code(s): S22.39XA - Fracture of one rib, unspecified side, initial encounter for closed fracture Status: Acute Assessment and Plan: Consulted Ortho and advised conservative management CT shows acute fracture of right 8th and 9th ribs Incentive spirometry Aggressive pulmonary toilet Subjective Date/time seen: 06/03/24 13:17 Interval history: Pending PT/OT evaluation for discharge recommendation. No acute events reported. Review of Systems Review of Systems: All systems reviewed & are unremarkable except as noted in HPI and below Constitutional: Constitutional: Reports fatigue and Reports malaise Eyes: Eyes: Reports as per HPI ENT: Reports system reviewed and no additional complaints, except as documented Cardiovascular: Cardiovascular: Reports no additional cardiovascular complaints and Reports dyspnea Respiratory: Respiratory: Reports as per HPI, Reports cough and Reports dyspnea Gastrointestinal: Gastrointestinal: Reports no additional gastrointestinal complaints Genitourinary: Genitourinary: Reports no additional male genitourinary complaints Musculoskeletal: Musculoskeletal: Reports no additional musculoskeletal complaints Integumentary/Breasts: Skin/Breast: Reports system reviewed and no additional complaints, except as docu Neurologic: Reports system reviewed and no additional complaints, except as documented Psychiatric: Psychiatric: Reports no additional psychiatric complaints Endocrine: Endocrine: Reports no additional endocrine complaints and Reports fatigue Hematologic/Lymphatic: Hematologic/Lymphatic: Reports no additional hematologic/lymphatic complaints Allergic/Immunologic: Allergic/Immunologic: Reports no additional allergic/immunologic complaints Exam Const: General: cooperative, no acute distress, alert, awake and ill appearing Orientation/consciousness: oriented to person, oriented to place and oriented to time Limitations: other limitations (cognitive level due to medical history) HENMT: Head: normal to inspection and normocephalic Eyes: General: appearance normal, both eyes and all related structures Neck: Neck: normal visual inspection, full ROM and no lymphadenopathy Chest: Chest palpation & inspection: normal inspection of the chest Resp: Effort & Inspection: normal respiratory effort and able to speak in complete sentences Auscultation: rhonchi upper bilaterally and diminished lung sounds bilateral in the lower lung clarke Cardio: Jugular venous distension: no JVD Rate: tachycardic Rhythm: regular rhythm Heart sounds: S1 normal heart sound present and S2 normal heart sound present Peripheral pulses: Peripheral pulses 2+ throughout GI: Inspection: normal to inspection Auscultation: normal bowel sounds Skin: General skin exam: normal color and no rashes or lesions noted Neuro: General: oriented to person, oriented to place, oriented to time, moves all extremities and Unable to assess gait Cranial nerves: Yes CN's II-XII intact bilaterally Speech: normal speech Gait exam (Neuro): Unable to assess gait Extrem: General: full ROM Psych: Appearance: grossly normal Speech and movement: Normal speech and movement present Affect: normal affect Attitude: cooperative Objective Data Vital Signs Vital Signs: Vital Signs - 24 hr 06/02/24 14:20 06/02/24 14:25 06/02/24 14:29 Temperature 97.8 F Pulse Rate 98 Respiratory Rate 20 Blood Pressure 123/69 Pulse Oximetry 95 94 92 Oxygen Delivery Room Air Room Air Fraction of Inspired Oxygen 21 06/02/24 14:30 06/02/24 16:00 06/02/24 20:00 Temperature Pulse Rate 103 H 92 Respiratory Rate 16 Blood Pressure Pulse Oximetry 93 92 Oxygen Delivery Room Air Room Air Fraction of Inspired Oxygen 21 06/02/24 20:00 06/02/24 21:00 06/02/24 21:00 Temperature Pulse Rate 95 86 Respiratory Rate 16 Blood Pressure Pulse Oximetry 92 Oxygen Delivery Room Air Fraction of Inspired Oxygen 06/02/24 21:18 06/02/24 22:23 06/02/24 23:00 Temperature 97.8 F Pulse Rate 92 99 90 Respiratory Rate 16 16 16 Blood Pressure 127/74 Pulse Oximetry 92 Oxygen Delivery Fraction of Inspired Oxygen 06/02/24 23:06 06/03/24 00:00 06/03/24 04:00 Temperature Pulse Rate 88 104 H 88 Respiratory Rate 16 Blood Pressure Pulse Oximetry Oxygen Delivery Fraction of Inspired Oxygen 06/03/24 04:12 06/03/24 04:20 06/03/24 06:33 Temperature 97.6 F Pulse Rate 86 87 91 Respiratory Rate 16 16 16 Blood Pressure 105/63 Pulse Oximetry 93 Oxygen Delivery Fraction of Inspired Oxygen 06/03/24 07:40 06/03/24 07:42 06/03/24 07:52 Temperature Pulse Rate 96 92 Respiratory Rate 16 16 Blood Pressure Pulse Oximetry 94 Oxygen Delivery Room Air Fraction of Inspired Oxygen 06/03/24 09:28 06/03/24 09:28 06/03/24 11:32 Temperature Pulse Rate 96 84 Respiratory Rate 16 Blood Pressure Pulse Oximetry 94 Oxygen Delivery Room Air Fraction of Inspired Oxygen 06/03/24 11:40 06/03/24 12:00 Temperature Pulse Rate 92 90 Respiratory Rate 16 Blood Pressure Pulse Oximetry Oxygen Delivery Fraction of Inspired Oxygen Intake/Output Intake/Output: Intake & Output 05/31/24 06/01/24 06/02/24 06/03/24 23:59 23:59 23:59 23:59 Intake Total 580 1020 850 420 Output Total 400 1800 650 500 Balance 180 -780 200 -80 Meds/Results Medications: Active Medications Generic Name Dose Route Start Last Admin Trade Name Steffenq PRN Reason Stop Dose Admin Acetaminophen 650 mg 05/31/24 10:36 06/03/24 01:58 Acetaminophen 325 Mg Tablet PO 650 mg Q6H PRN Administration Mild Pain (1-3) or Fever Albuterol/Ipratropium 3 ml 05/31/24 12:00 06/03/24 11:31 Ipratropium 0.5 Mg/Albuterol Sulfate 2.5 Mg Ampul.Neb 3 Ml INHALATION 3 ml Q4HRT TONIO Administration Amoxicillin/Clavulanate Potassium 1 tablet 05/31/24 09:00 06/03/24 09:27 Amoxicillin/Clavulanate K 875-125 Mg Tab PO 06/05/24 08:59 1 tablet Q12HR TONIO Administration Aspirin 81 mg 05/30/24 09:00 06/03/24 09:31 Aspirin 81 Mg Enteric Tablet PO 81 mg QAM OTNIO Administration Clorazepate Dipotassium 3.75 mg 05/30/24 09:00 06/03/24 12:29 Clorazepate Dipotassium (*Crx) 3.75 Mg Tablet PO 3.75 mg TID TONIO Administration Doxycycline Hyclate 100 mg 05/31/24 09:00 06/03/24 09:28 Doxycycline Hyclate 100 Mg Tablet PO 06/05/24 08:59 100 mg Q12HR TONIO Administration Fluphenazine HCl 5 mg 05/30/24 09:00 06/03/24 12:29 Fluphenazine Hcl 5 Mg Tablet PO 5 mg TID TONIO Administration Guaifenesin/Dextromethorphan 10 ml 05/30/24 06:00 06/03/24 12:29 Guaifenesin/Dextromethorphan 10 Ml Udc PO 10 ml Q6HR TONIO Administration Nicotine 1 patch 05/30/24 09:00 06/03/24 09:28 Nicotine (*Pbkc) 21 Mg Patch TRANSDERM 1 patch DAILY TONIO Administration Oxycodone HCl 5 mg 05/31/24 10:36 Oxycodone Hcl (*Crx) 5 Mg Tab Ir PO Q6H PRN Pain Rated 7-10 Phenytoin Sodium 100 mg 05/30/24 09:00 06/03/24 12:30 Phenytoin Sodium 100 Mg Extended Release Cap PO 100 mg TID TONIO Administration Radiology Results: ITS Impressions Chest X-Ray 05/29/24 20:58 IMPRESSION: No acute cardiopulmonary process. Chest CT 05/30/24 05:25 Impression: Scattered areas of tree-in-bud opacity with several slightly more confluent areas of consolidation left upper lobe. Findings are compatible small airways infection with superimposed patchy left upper lobe pneumonia. Mild emphysema. Acute fractures of the right eighth and ninth ribs. Venous Doppler Study 05/31/24 12:20 IMPRESSION: 1. No deep venous thrombosis. Modified Barium Swallow 06/01/24 15:28 IMPRESSION: 1. Laryngeal penetration. 2. Please refer to the speech therapy report for recommendations. Labs Labs: Laboratory Results - last 24 hr 06/03/24 05:23 WBC 8.8 RBC 4.25 L Hgb 13.3 L Hct 41.7 L MCV 98.1 MCH 31.3 MCHC 31.9 L RDW 12.7 Plt Count 555 H MPV 8.7 Immature Gran % (Auto) 0.8 H Neut % (Auto) 64.5 Lymph % (Auto) 20.8 [place] % (Auto) 12.1 H Eos % (Auto) 1.5 Baso % (Auto) 0.3 Lymph # (Auto) 1.84 [place] # (Auto) 1.1 H Eos # (Auto) 0.1 Baso # (Auto) 0.0 Abs Immat Gran (auto) 0.07 H Absolute Neuts (auto) 5.7 Absolute Nucleated RBC 0.000 Nucleated RBC % 0.0 Sodium 138 Potassium 4.0 Chloride 99 Carbon Dioxide 35 H Anion Gap 4 BUN 25 H Creatinine 0.99 Estim Creat Clear Calc 49 Estimated GFR > 60 Glucose 95 Calcium 8.6 Magnesium 1.9 Total Bilirubin 0.5 AST 29 ALT 42 Alkaline Phosphatase 104 Total Protein 6.0 L Albumin 3.3 L Quality VTE Prophylaxis VTE prophylaxis: mechanical ordered Hospitalist MIPS Advance Care Plan I have confirmed that the patient's Advanced Care Plan is present, code status is documented, or surrogate decision maker is listed in patient medical record.: Yes Medication Reconciliation I have utilized all available resources to obtain, update and review the patients current medications (includes all prescriptions, OTC, herbals, cannabis, and nutritional supplements).: Yes
--- NOTE | 2024-06-03 16:50 | P.PNPL_ITS ---
Progress Note: A&P Assessment and Plan (1) COPD (chronic obstructive pulmonary disease): Qualifiers: COPD type: unspecified COPD Qualified Code(s): J44.9 - Chronic obstructive pulmonary disease, unspecified Code(s): J44.9 - Chronic obstructive pulmonary disease, unspecified Status: Chronic Assessment and Plan: This 73-year-old man with history of psychiatric illness chronically on antipsychotic medications, seizure disorder and impaired mental alertness presented with shortness of breath hypoxemia related to underlying COPD exacerbation and influenza A viral infection. Patient was found to have some tree in bud opacities and small infiltrates on chest x-rays most likely related to influenza viral infection. He has been treated for COPD exacerbations with acute hypercapnic respiratory failure and has improved following treatment with bronchodilators and steroids. He still on steroids. His hypercapnia is most likely acute related to COPD exacerbation as review of previous laboratory testing results showed no persisting elevation of total bicarbonate. Agree with current antibiotic regimen consisting of Augmentin and doxycycline. His viral illness began most likely few days prior to presenting to the emergency room and treatment with Tamiflu was not indicated. Plan: Continue the current antibiotic regimen using Augmentin and doxycycline, both started May 31. Maintain the use of short-acting bronchodilators. He does not need BiPAP support at night any longer. He is off Mucomyst. He passed his Home O2 study June 02. He does not need O2 at rest or with exertion. PT OT ordered by hospitalist. He is stable from the pulmonary standpoint. Likely will go home tomorrow. He could follow up in the pulmonary office if he wants to. (2) Tobacco dependence: Code(s): F17.200 - Nicotine dependence, unspecified, uncomplicated Status: Chronic Assessment and Plan: Tobacco smoker prior to this admission; recommend tobacco cessation. He has been off tobacco 4-5 days, and he thinks this is a good time to stop. He lives with his brother Ellis who is not a smoker. (3) Pneumonia: Code(s): J18.9 - Pneumonia, unspecified organism Status: Acute Assessment and Plan: He had infiltrates on chest CT; tree in bud opacities and small infiltrates on chest x-rays most likely related to influenza viral infection. He has improved, now on oral antibiotics Augmentin and doxycycline. (4) Schizophrenia: Qualifiers: Schizophrenia type: unspecified Qualified Code(s): F20.9 - Schizophrenia, unspecified Code(s): F20.9 - Schizophrenia, unspecified Status: Acute Assessment and Plan: stable condition; psychiatric illness chronically on antipsychotic medications, seizure disorder and impaired mental alertness (5) Influenza A: Code(s): J10.1 - Influenza due to other identified influenza virus with other respiratory manifestations Status: Acute Assessment and Plan: admitted with (+) influenza A on swab 05/29, was too late to get antiviral treatment. (6) Dysphagia causing pulmonary aspiration with swallowing: Code(s): R13.19 - Other dysphagia Status: Acute Assessment and Plan: He has dysphagia secondary to laryngeal elevation and tongue base retraction. ST noted that he had flash laryngeal penetration without digna aspiration, tolerated the speech exercises but the therapist said that he would need encouragement and help repeating these at home. Today June 02, he had Speech Therapy with laryngeal elevation exercise and tongue base exercises. Speech therapy completed 2 sets of 10 tongue base exercises using words with the letter k . Also 2 sets of 5 pitch glides to target laryngeal elevation performance. He received copies of these exercises to do at home, 10 repetitions of each exercise 2-3 times a day at home. He will need help performing these. He does not have obvious aspiration. He needs to have someone at home to learn these skills and practice with the patient. Subjective Date/time seen: 06/03/24 16:50 Interval history: 06/03/24: He is sitting in a chair eating dinner, on room air. He is not having shortness of breath now and says that he is not having much sputum when he coughs. 06/02/24: Everardo Diaz is a 73-year old man with COPD, smoking, schizophrenia, admitted with Influenza A needing 2 L/min O2 on Feb 24. He was weaned to Room Air. He had a modified barium swallow today, had flash laryngeal penetration without aspiration. Speech Therapy taught him swallow exercises. He needs PT/OT before discharge, was ordered. 06/01/24; Patient is again slow to answer questions. He stated he has no new respiratory symptoms. Overall he is feeling better. He use BiPAP support last night. DATA * 05/30/2024: chest CT; Scattered areas of tree-in-bud opacity with several slightly more confluent areas of consolidation left upper lobe. Findings are compatible small airways infection with superimposed patchy left upper lobe pneumonia. Mild emphysema. Acute fractures of the right eighth and ninth ribs. * 05/31/24; ABG pH 7.411, pCO2 55.6, PO2 60.3, HC03 34.5, saturation 93.5% on 2 L * 06/01/2024; modified barium swallow shows flash laryngeal penetration several times without actual aspiration. He had a cough at one point but was not due to substances being in the airway. He was able to perform exercises for 15 minutes, was given sheets with instructions so he could do this at home 10 repetitions 2- 3 times a day. Review of Systems Review of Systems: All systems reviewed & are unremarkable except as noted in HPI and below Exam Narrative: GEN: Alert, thin, neck is flexed forward so that he cannot straighten it normally. Not in distress. He is on room air with sat 93%. HEENT: pupils are equal, EOMI, symmetrical face NECK: Trachea is midline CHEST: Equal air entry, symmetric excursion, clear lungs. CV: Regular S1S2 no m/g/r Extremities : no clubbing, cyanosis, or edema PSYCH: normal thought and speech Objective Data Vital Signs Vital Signs: Vital Signs - 24 hr 06/02/24 20:00 06/02/24 20:00 06/02/24 21:00 Temperature Pulse Rate 92 95 Respiratory Rate 16 Blood Pressure Pulse Oximetry 92 92 Oxygen Delivery Room Air Room Air Fraction of Inspired Oxygen 21 06/02/24 21:00 06/02/24 21:18 06/02/24 22:23 Temperature 36.6 C Pulse Rate 86 92 99 Respiratory Rate 16 16 16 Blood Pressure 127/74 Pulse Oximetry 92 Oxygen Delivery Fraction of Inspired Oxygen 06/02/24 23:00 06/02/24 23:06 06/03/24 00:00 Temperature Pulse Rate 90 88 104 H Respiratory Rate 16 16 Blood Pressure Pulse Oximetry Oxygen Delivery Fraction of Inspired Oxygen 06/03/24 04:00 06/03/24 04:12 06/03/24 04:20 Temperature Pulse Rate 88 86 87 Respiratory Rate 16 16 Blood Pressure Pulse Oximetry Oxygen Delivery Fraction of Inspired Oxygen 06/03/24 06:33 06/03/24 07:40 06/03/24 07:42 Temperature 36.4 C Pulse Rate 91 96 Respiratory Rate 16 16 Blood Pressure 105/63 Pulse Oximetry 93 94 Oxygen Delivery Room Air Fraction of Inspired Oxygen 06/03/24 07:52 06/03/24 09:28 06/03/24 09:28 Temperature Pulse Rate 92 96 Respiratory Rate 16 Blood Pressure Pulse Oximetry 94 Oxygen Delivery Room Air Fraction of Inspired Oxygen 06/03/24 11:32 06/03/24 11:40 06/03/24 12:00 Temperature Pulse Rate 84 92 90 Respiratory Rate 16 16 Blood Pressure Pulse Oximetry Oxygen Delivery Fraction of Inspired Oxygen 06/03/24 14:00 06/03/24 15:38 06/03/24 15:48 Temperature 36.3 C L Pulse Rate 93 94 96 Respiratory Rate 16 16 16 Blood Pressure 122/74 Pulse Oximetry 95 Oxygen Delivery Fraction of Inspired Oxygen 06/03/24 16:00 Temperature Pulse Rate 102 H Respiratory Rate Blood Pressure Pulse Oximetry Oxygen Delivery Fraction of Inspired Oxygen Intake/Output Intake/Output: Intake & Output 05/31/24 06/01/24 06/02/24 06/03/24 23:59 23:59 23:59 23:59 Intake Total 580 1020 850 420 Output Total 400 1800 650 500 Balance 180 -780 200 -80 Meds/Results Medications: Active Medications Generic Name Dose Route Start Last Admin Trade Name Freq PRN Reason Stop Dose Admin Acetaminophen 650 mg 05/31/24 10:36 06/03/24 01:58 Acetaminophen 325 Mg Tablet PO 650 mg Q6H PRN Administration Mild Pain (1-3) or Fever Albuterol/Ipratropium 3 ml 05/31/24 12:00 06/03/24 15:38 Ipratropium 0.5 Mg/Albuterol Sulfate 2.5 Mg Ampul.Neb 3 Ml INHALATION 3 ml Q4HRT TONIO Administration Amoxicillin/Clavulanate Potassium 1 tablet 05/31/24 09:00 06/03/24 09:27 Amoxicillin/Clavulanate K 875-125 Mg Tab PO 06/05/24 08:59 1 tablet Q12HR TONIO Administration Aspirin 81 mg 05/30/24 09:00 06/03/24 09:31 Aspirin 81 Mg Enteric Tablet PO 81 mg QAM TONIO Administration Clorazepate Dipotassium 3.75 mg 05/30/24 09:00 06/03/24 12:29 Clorazepate Dipotassium (*Crx) 3.75 Mg Tablet PO 3.75 mg TID TONIO Administration Doxycycline Hyclate 100 mg 05/31/24 09:00 06/03/24 09:28 Doxycycline Hyclate 100 Mg Tablet PO 06/05/24 08:59 100 mg Q12HR TONIO Administration Fluphenazine HCl 5 mg 05/30/24 09:00 06/03/24 12:29 Fluphenazine Hcl 5 Mg Tablet PO 5 mg TID TONIO Administration Guaifenesin/Dextromethorphan 10 ml 05/30/24 06:00 06/03/24 12:29 Guaifenesin/Dextromethorphan 10 Ml Udc PO 10 ml Q6HR TONIO Administration Nicotine 1 patch 05/30/24 09:00 06/03/24 09:28 Nicotine (*Pbkc) 21 Mg Patch TRANSDERM 1 patch DAILY TONIO Administration Oxycodone HCl 5 mg 05/31/24 10:36 Oxycodone Hcl (*Crx) 5 Mg Tab Ir PO Q6H PRN Pain Rated 7-10 Phenytoin Sodium 100 mg 05/30/24 09:00 06/03/24 12:30 Phenytoin Sodium 100 Mg Extended Release Cap PO 100 mg TID TONIO Administration Radiology Results: ITS Impressions Chest X-Ray 05/29/24 20:58 IMPRESSION: No acute cardiopulmonary process. Chest CT 05/30/24 05:25 Impression: Scattered areas of tree-in-bud opacity with several slightly more confluent areas of consolidation left upper lobe. Findings are compatible small airways infection with superimposed patchy left upper lobe pneumonia. Mild emphysema. Acute fractures of the right eighth and ninth ribs. Venous Doppler Study 05/31/24 12:20 IMPRESSION: 1. No deep venous thrombosis. Modified Barium Swallow 06/01/24 15:28 IMPRESSION: 1. Laryngeal penetration. 2. Please refer to the speech therapy report for recommendations. Labs Labs: Laboratory Results - last 24 hr 06/03/24 05:23 WBC 8.8 RBC 4.25 L Hgb 13.3 L Hct 41.7 L MCV 98.1 MCH 31.3 MCHC 31.9 L RDW 12.7 Plt Count 555 H MPV 8.7 Immature Gran % (Auto) 0.8 H Neut % (Auto) 64.5 Lymph % (Auto) 20.8 [place] % (Auto) 12.1 H Eos % (Auto) 1.5 Baso % (Auto) 0.3 Lymph # (Auto) 1.84 [place] # (Auto) 1.1 H Eos # (Auto) 0.1 Baso # (Auto) 0.0 Abs Immat Gran (auto) 0.07 H Absolute Neuts (auto) 5.7 Absolute Nucleated RBC 0.000 Nucleated RBC % 0.0 Sodium 138 Potassium 4.0 Chloride 99 Carbon Dioxide 35 H Anion Gap 4 BUN 25 H Creatinine 0.99 Estim Creat Clear Calc 49 Estimated GFR > 60 Glucose 95 Calcium 8.6 Magnesium 1.9 Total Bilirubin 0.5 AST 29 ALT 42 Alkaline Phosphatase 104 Total Protein 6.0 L Albumin 3.3 L
[2024-06-04] VITALS (14 sets, daily range): BP systolic 115–116; BP diastolic 70–72; PULSE 93–118; RESP 17–20; TEMP 36.4–36.8; O2SAT 91–95
[2024-06-04] MEDS: IPRATROPIUM 0.5 MG/ALBUTEROL SULFATE 2.5 MG AMPUL.NEB 3 ML INHALATION ×4 (00:28→12:20)
[2024-06-04 04:53] LABS: Hemoglobin 13.3 g/dL (14.0-18.0); Mean Corpuscular HGB Conc 32.4 g/dl (32-36); Mean Corpuscular Volume 98.8 fl (80-100); Mean Platelet Volume 8.6 fl (7.4-10.4); Platelet Count Result 511 k/mm3 (150-375); Red Blood Count 4.15 M/mm3 (4.6-6.20); Red Cell Distribution Width 12.9 % (11.5-14.5); White Blood Count 9.3 K/mm3 (4.5-10.0)
[2024-06-04 05:16] LABS: Alanine Aminotransferase 37 U/L (6-50); Albumin Level 3.3 g/dL (3.5-5.1); Alkaline Phosphatase 114 U/L (38-126); Anion Gap 5 mmol/L (4-12); Aspartate Amino Transferase 27 U/L (17-59); Bilirubin,Total 0.7 mg/dL (0.2-1.3); Blood Urea Nitrogen 26 mg/dL (9-20); Calcium 8.9 mg/dL (8.4-10.2); Carbon Dioxide 34 mmol/L (22-30); Chloride 99 mmol/L (98-107); Estimated CRCL calculation 48 ml/min; Estimated Glomerular Filt Rate > 60; Glucose 100 mg/dL (65-110); Potassium 4.1 mmol/L (3.4-5.0); Sodium 138 mmol/L (137-145)
[2024-06-04] MEDS: guaiFENesin/DEXTROMETHORPHAN 10 ML UDC PO ×2 (05:32→12:31)
[2024-06-04] MEDS: DOXYCYCLINE HYCLATE 100 MG TABLET PO (07:59)
[2024-06-04] MEDS: AMOXICILLIN/CLAVULANATE K 875-125 MG TAB 1 TABLET PO (07:59)
[2024-06-04] MEDS: CLORAZEPATE DIPOTASSIUM (*CRX) 3.75 MG TABLET PO ×2 (07:59→12:30)
[2024-06-04] MEDS: ASPIRIN 81 MG ENTERIC TABLET PO (07:59)
[2024-06-04] MEDS: fluPHENAZine HCl 5 MG TABLET PO ×2 (07:59→12:30)
[2024-06-04] MEDS: PHENYTOIN SODIUM 100 MG EXTENDED RELEASE CAP PO ×2 (08:00→12:30)
--- NOTE | 2024-06-04 09:10 | PM.PNPUL ---
Progress Note: A&P Assessment and Plan (1) COPD (chronic obstructive pulmonary disease): Qualifiers: COPD type: unspecified COPD Qualified Code(s): J44.9 - Chronic obstructive pulmonary disease, unspecified Code(s): J44.9 - Chronic obstructive pulmonary disease, unspecified Status: Chronic Assessment and Plan: This 73-year-old man with history of psychiatric illness chronically on antipsychotic medications, seizure disorder and impaired mental alertness presented with shortness of breath hypoxemia related to underlying COPD exacerbation and influenza A viral infection. Patient was found to have some tree in bud opacities and small infiltrates on chest x-rays most likely related to influenza viral infection. He has been treated for COPD exacerbations with acute hypercapnic respiratory failure and has improved following treatment with bronchodilators and steroids. He still on steroids. His hypercapnia is most likely acute related to COPD exacerbation as review of previous laboratory testing results showed no persisting elevation of total bicarbonate. During hospitalization video swallow study showed laryngeal penetration and patient was evaluated by speech pathology services. Over the weekend further improvement of his respiratory status noted. Currently he is on room air and on physical exam he no longer has wheezing. Plan: From a respiratory standpoint the patient can be discharged home. Patient will continue with current antibiotic regimen, Augmentin and doxycycline, for another week. He will continue with his maintenance bronchodilators Breo inhaler daily and his nebulized short-acting bronchodilators. Patient is to return to pulmonary clinic in approximately 1 month for follow-up. I will sign off please call with any questions. (2) Tobacco dependence: Code(s): F17.200 - Nicotine dependence, unspecified, uncomplicated Status: Chronic (3) Pneumonia: Code(s): J18.9 - Pneumonia, unspecified organism Status: Acute (4) Schizophrenia: Qualifiers: Schizophrenia type: unspecified Qualified Code(s): F20.9 - Schizophrenia, unspecified Code(s): F20.9 - Schizophrenia, unspecified Status: Acute (5) Influenza A: Code(s): J10.1 - Influenza due to other identified influenza virus with other respiratory manifestations Status: Acute Subjective Date/time seen: 06/04/24 09:10 Interval history: Patient stated he is doing better. Has been on home oxygen. He has no cough or wheezing. No fever chills. Video swallow study showed that in retirement penetration. Review of Systems Review of Systems: All systems reviewed & are unremarkable except as noted in HPI and below (HPI and below) Exam Narrative: GENERAL APPEARANCE: Well developed, well nourished, alert and cooperative, and appears to be in no acute distress SKIN: Inspection of the skin reveals no rashes, ulcerations or petechiae. HEENT: Sclerae anicteric and conjunctivae pink and moist. Extraocular movements were intact and pupils were equal, round, and reactive to light. The oral mucosa, hard and soft palate, tongue and posterior pharynx were normal. NECK: Supple. There was no thyroid enlargement, and no tenderness, or masses were felt. CHEST: Normal AP diameter and normal contour without any kyphoscoliosis. LUNGS: Mostly clear lungs anteriorly few rhonchi left upper chest CARDIAC: There was a regular rate and rhythm without any murmurs, gallops, rubs. ABDOMEN: Soft and nontender with normal bowel sounds. There was no organomegaly. LYMPH NODES: No lymphadenopathy was appreciated in the neck. EXTREMITIES: No cyanosis, clubbing or edema. NEUROLOGIC: Awake answering questions moving all extremities, cogwheel rigidity both wrists. Objective Data Vital Signs Vital Signs: Vital Signs - 24 hr 06/03/24 09:28 06/03/24 09:28 06/03/24 11:32 Temperature Pulse Rate 96 84 Respiratory Rate 16 Blood Pressure Pulse Oximetry 94 Oxygen Delivery Room Air 06/03/24 11:40 06/03/24 12:00 06/03/24 14:00 Temperature 36.3 C L Pulse Rate 92 90 93 Respiratory Rate 16 16 Blood Pressure 122/74 Pulse Oximetry 95 Oxygen Delivery 06/03/24 15:38 06/03/24 15:48 06/03/24 16:00 Temperature Pulse Rate 94 96 102 H Respiratory Rate 16 16 Blood Pressure Pulse Oximetry Oxygen Delivery 06/03/24 20:00 06/03/24 20:00 06/03/24 20:30 Temperature 36.5 C Pulse Rate 95 95 Respiratory Rate 18 Blood Pressure 130/76 Pulse Oximetry 95 Oxygen Delivery Room Air 06/03/24 20:59 06/03/24 20:59 06/03/24 21:09 Temperature Pulse Rate 96 99 Respiratory Rate 20 20 Blood Pressure Pulse Oximetry 92 Oxygen Delivery Room Air 06/04/24 00:00 06/04/24 00:30 06/04/24 00:33 Temperature Pulse Rate 96 94 93 Respiratory Rate 20 20 Blood Pressure Pulse Oximetry Oxygen Delivery 06/04/24 04:00 06/04/24 04:35 06/04/24 04:49 Temperature 36.8 C Pulse Rate 93 94 97 Respiratory Rate 17 20 Blood Pressure 115/70 Pulse Oximetry 95 Oxygen Delivery 06/04/24 04:54 06/04/24 07:55 06/04/24 07:55 Temperature Pulse Rate 96 111 H 111 H Respiratory Rate 20 20 20 Blood Pressure Pulse Oximetry 92 Oxygen Delivery Room Air 06/04/24 08:00 06/04/24 08:00 06/04/24 08:05 Temperature Pulse Rate 112 H 118 H Respiratory Rate 20 Blood Pressure Pulse Oximetry Oxygen Delivery Room Air Intake/Output Intake/Output: Intake & Output 06/01/24 06/02/24 06/03/24 06/04/24 23:59 23:59 23:59 23:59 Intake Total 1020 850 660 360 Output Total 1800 650 800 100 Balance -780 200 -140 260 Meds/Results Medications: Active Medications Generic Name Dose Route Start Last Admin Trade Name Freq PRN Reason Stop Dose Admin Acetaminophen 650 mg 05/31/24 10:36 06/03/24 21:13 Acetaminophen 325 Mg Tablet PO 650 mg Q6H PRN Administration Mild Pain (1-3) or Fever Albuterol/Ipratropium 3 ml 05/31/24 12:00 06/04/24 07:54 Ipratropium 0.5 Mg/Albuterol Sulfate 2.5 Mg Ampul.Neb 3 Ml INHALATION 3 ml Q4HRT TONIO Administration Amoxicillin/Clavulanate Potassium 1 tablet 05/31/24 09:00 06/04/24 07:59 Amoxicillin/Clavulanate K 875-125 Mg Tab PO 06/05/24 08:59 1 tablet Q12HR TONIO Administration Aspirin 81 mg 05/30/24 09:00 06/04/24 07:59 Aspirin 81 Mg Enteric Tablet PO 81 mg QAM TONIO Administration Clorazepate Dipotassium 3.75 mg 05/30/24 09:00 06/04/24 07:59 Clorazepate Dipotassium (*Crx) 3.75 Mg Tablet PO 3.75 mg TID TONIO Administration Doxycycline Hyclate 100 mg 05/31/24 09:00 06/04/24 07:59 Doxycycline Hyclate 100 Mg Tablet PO 06/05/24 08:59 100 mg Q12HR TONIO Administration Fluphenazine HCl 5 mg 05/30/24 09:00 06/04/24 07:59 Fluphenazine Hcl 5 Mg Tablet PO 5 mg TID TONIO Administration Guaifenesin/Dextromethorphan 10 ml 05/30/24 06:00 06/04/24 05:32 Guaifenesin/Dextromethorphan 10 Ml Udc PO 10 ml Q6HR TONIO Administration Nicotine 1 patch 05/30/24 09:00 06/04/24 08:03 Nicotine (*Pbkc) 21 Mg Patch TRANSDERM Not Given DAILY TONIO Oxycodone HCl 5 mg 05/31/24 10:36 Oxycodone Hcl (*Crx) 5 Mg Tab Ir PO Q6H PRN Pain Rated 7-10 Phenytoin Sodium 100 mg 05/30/24 09:00 06/04/24 08:00 Phenytoin Sodium 100 Mg Extended Release Cap PO 100 mg TID TONIO Administration Radiology Results: ITS Impressions Chest X-Ray 05/29/24 20:58 IMPRESSION: No acute cardiopulmonary process. Chest CT 05/30/24 05:25 Impression: Scattered areas of tree-in-bud opacity with several slightly more confluent areas of consolidation left upper lobe. Findings are compatible small airways infection with superimposed patchy left upper lobe pneumonia. Mild emphysema. Acute fractures of the right eighth and ninth ribs. Venous Doppler Study 05/31/24 12:20 IMPRESSION: 1. No deep venous thrombosis. Modified Barium Swallow 06/01/24 15:28 IMPRESSION: 1. Laryngeal penetration. 2. Please refer to the speech therapy report for recommendations. Labs Labs: Laboratory Results - last 24 hr 06/04/24 04:39 WBC 9.3 RBC 4.15 L Hgb 13.3 L Hct 41.0 L MCV 98.8 MCH 32.0 MCHC 32.4 RDW 12.9 Plt Count 511 H MPV 8.6 Sodium 138 Potassium 4.1 Chloride 99 Carbon Dioxide 34 H Anion Gap 5 BUN 26 H Creatinine 1.01 Estim Creat Clear Calc 48 Estimated GFR > 60 Glucose 100 Calcium 8.9 Magnesium 2.0 Total Bilirubin 0.7 AST 27 ALT 37 Alkaline Phosphatase 114 Total Protein 6.0 L Albumin 3.3 L
--- NOTE | 2024-06-04 13:17 | PM.DS ---
DS: Admitting Diagnosis Discharge Date Shortness of Breath Admitting Diagnosis 06/04/2024 DS: Discharge Diagnosis Discharge Diagnosis (1) Influenza A: Code(s): J10.1 - Influenza due to other identified influenza virus with other respiratory manifestations Status: Acute Assessment and Plan: Continue with symptomatic management Discontinued methylprednisone Completed Prednisone taper tylenol prn for fever see below (2) Pneumonia: Code(s): J18.9 - Pneumonia, unspecified organism Status: Acute Assessment and Plan: COPD and smoker -as seen on CT - Scattered areas of tree-in-bud opacity with several slightly more confluent areas of consolidation left upper lobe. Findings are compatible small airways infection with superimposed patchy left upper lobe pneumonia. -discontinue cefepime and vancomycin -status post BiPAP -currently on 2 L nasal cannula -started amoxicillin and doxycycline for 5 days -nasal MRSA negative -continue nebulizing treatment -nicotine patch -consider pulmonology consult (3) Schizophrenia: Qualifiers: Schizophrenia type: unspecified Qualified Code(s): F20.9 - Schizophrenia, unspecified Code(s): F20.9 - Schizophrenia, unspecified Status: Acute Assessment and Plan: continue home medications (4) Seizure disorder: Code(s): G40.909 - Epilepsy, unspecified, not intractable, without status epilepticus Status: Chronic Assessment and Plan: Continue medications (5) COPD (chronic obstructive pulmonary disease): Qualifiers: COPD type: unspecified COPD Qualified Code(s): J44.9 - Chronic obstructive pulmonary disease, unspecified Code(s): J44.9 - Chronic obstructive pulmonary disease, unspecified Status: Chronic Assessment and Plan: As above (6) Dyslipidemia: Code(s): E78.5 - Hyperlipidemia, unspecified Status: Acute Assessment and Plan: Continue medications (7) Rib fracture: Qualifiers: Encounter type: initial encounter Fracture type: closed Laterality: right Rib fracture type: multiple ribs Qualified Code(s): S22.41XA - Multiple fractures of ribs, right side, initial encounter for closed fracture Code(s): S22.39XA - Fracture of one rib, unspecified side, initial encounter for closed fracture Status: Acute Assessment and Plan: Consulted Ortho and advised conservative management CT shows acute fracture of right 8th and 9th ribs Incentive spirometry Aggressive pulmonary toilet DS: Summary Hospital Course Hospital Course: 73-year-old male with medical history of Seizure disporder, Schizophrenia, impaired mental alertness, COPD with heavy smoking with no oxygen requirement at home that presented emergency department for complaint worsening shortness of breath. Patient reports that he had a cough, but he denies any fever chills. He denies any nausea, vomiting or diarrhea any chest pain. On arrival to the ER patient vital signs noted temp 98.6, blood pressure 117/71, pulse 104, resp 21, 84% on room air but did improve on 4 L. Emergency department workup noted ABG did show pH of 7.323, O2 73.5 HC03 28.9, PO2 93.4, and PCO2 of 56.9. Patient was placed on BiPAP 14 of 7 and was able a titrated down to 24% FiO2. White blood cell count was 9.5, hemoglobin 14.1, hematocrit 43.2, platelets 446. BNP 740, BUN 21 creatinine 0.91 with a GFR greater than 60. Patient is positive for influenza a, chest x-ray shows no acute cardiopulmonary abnormality but CT scan was ordered. CT chest noted Scattered areas of tree-in-bud opacity with several slightly more confluent areas of consolidation left upper lobe. Findings are compatible small airways infection with superimposed patchy left upper lobe pneumonia. Mild emphysema. Acute fractures of the right eighth and ninth ribs. Patient was treated with 5 mg of nebulized albuterol and this did open up his lungs, but his sounds of breathing did appear to worsen. Patient was treated with a 2nd 5 mg of nebulized albuterol. Patient was started on cefepime and vancomycin for the pneumonia, patient was given Solu-Medrol. The patient continued to tolerate the BiPAP well, showed some improvement, and was admitted for further management. 05/30/24-this a.m. patient remains on BiPAP, he is tolerating this well. He denies any fever chills, he denies any chest pain or nausea vomiting or diarrhea. He states he has always had a cough, he reports cough is nonproductive and worse than at home. He does state that his shortness of breath is somewhat better this morning. I assumed care on 05/31. The patient had right-sided rib fractures 8 and 9, which were found on the CT scan of the chest. Orthopedics recommended conservative treatment, and no follow-up was needed unless any problem arose.Ordered incentive spirometry and advised aggressive pulmonary toilet.. Regarding respiratory distress, pulmonology was consulted, and they agreed with the antibiotic choice. The patient will complete Augmentin and doxycycline until 4. 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 The patient underwent a swallow study. The patient has evidence of choking. I spoke to his brother, Kevin, who is the POA. He reports that his younger brother, Mr. Corral, also participates in his medical decision. According to Mr. Brown, the patient wanted not to be resuscitated, but he wants to confirm with his brother, Mr. oCrral and will inform.We will discuss the goals of care again with his brothers, Kevin and Ellis. He has added Mucomyst. Currently, the patient is saturating well on room air. Blood culture shows no growth. Discontinued cefepime and started Amox/clav and doxycycline for 5 days. Discontinued methylprednisone and prednisone taper.Other than smoking one pack per day and schizophrenia, there is no significant medical history. Denies using any nasal oxygen at home. Reviewed his home medication, which shows the patient is taking fluticasone furoate/vilanterol inhalation and albuterol rescue inhaler. Status at Discharge Cognitive/behavioral status at discharge: Stable Time Spent with Patient Time attestation: Total time spent providing and/or coordinating discharge services: Exam Const: General: cooperative, no acute distress, alert, awake and ill appearing Orientation/consciousness: oriented to person, oriented to place and oriented to time Limitations: other limitations (cognitive level due to medical history) HENMT: Head: normal to inspection and normocephalic Eyes: General: appearance normal, both eyes and all related structures Neck: Neck: normal visual inspection, full ROM and no lymphadenopathy Chest: Chest palpation & inspection: normal inspection of the chest Resp: Effort & Inspection: normal respiratory effort and able to speak in complete sentences Auscultation: rhonchi upper bilaterally and diminished lung sounds bilateral in the lower lung clarke Cardio: Jugular venous distension: no JVD Rate: tachycardic Rhythm: regular rhythm Heart sounds: S1 normal heart sound present and S2 normal heart sound present Peripheral pulses: Peripheral pulses 2+ throughout GI: Inspection: normal to inspection Auscultation: normal bowel sounds Skin: General skin exam: normal color and no rashes or lesions noted Neuro: General: oriented to person, oriented to place, oriented to time, moves all extremities and Unable to assess gait Cranial nerves: Yes CN's II-XII intact bilaterally Speech: normal speech Gait exam (Neuro): Unable to assess gait Extrem: General: full ROM Psych: Appearance: grossly normal Speech and movement: Normal speech and movement present Affect: normal affect Attitude: cooperative DS: Data Data Completed and Pending Labs on day of discharge: Labs from last 24 hours 06/04/24 04:39 WBC 9.3 RBC 4.15 L Hgb 13.3 L Hct 41.0 L MCV 98.8 MCH 32.0 MCHC 32.4 RDW 12.9 Plt Count 511 H MPV 8.6 Sodium 138 Potassium 4.1 Chloride 99 Carbon Dioxide 34 H Anion Gap 5 BUN 26 H Creatinine 1.01 Estim Creat Clear Calc 48 Estimated GFR > 60 Glucose 100 Calcium 8.9 Magnesium 2.0 Total Bilirubin 0.7 AST 27 ALT 37 Alkaline Phosphatase 114 Total Protein 6.0 L Albumin 3.3 L Discharge Plan Discharge Attending physician on discharge: Raul Hooker Consulting providers: Jordy Montes; Harry Peoples Discharging Clinician: Raul Hooker Anticipated Discharge Date/Time: 06/02/24 13:28 Patient Disposition: Home Health Service Activity: as tolerated Diet: other - see discharge instructions Discharge Instructions: Per Care Coordination, patient to discharge with [facility] ([phone]) for PT/OT and alf services. Agency will call to arrange the initial visit. Recommend thin liquids. Completed laryngeal elevation/tongue base exercises. Complete Augmentin and doxycycline until 06/05 Advise smoking cessation Patient needs assistance Please see follow-up with the PCP for supplement oxygen continuation Check blood pressure 1 to 2 times a day. Record and bring into your doctor for review. Call your doctor if your blood pressure is greater than 180/110 or less than 90/45. Walk with cane or other assist device. Take precautions to avoid falls. Rise slowly from a lying or sitting position. Pause before standing or walking. Contact your doctor or call 911 and come to the Emergency Room if you have any type of trauma, lightheadedness with standing or other worrisome symptoms. Avoid NSAIDs (ibuprofen, naproxen, Aleve). Tylenol is safe to take. Follow-up with your primary care provider in 1-2 weeks. Please call for appointment. Follow-up with pulmonology in 2-4 weeks. Please call for an appointment. Thank you for using [facility] for your health care needs. Patient Instructions: Antibiotic Form Patient Language: Jamaican Stand Alone Forms: General Discharge Information Follow-up/Referrals: Jordy Montes MD [Physician] - Discharge Medications: New doxycycline hyclate 100 mg Tablet 100 mg PO Q12HR Qty: 14 0RF Rx Instructions: Please complete the course on June 05 dextromethorphan-guaifenesin 10-100 mg/5 mL Syrup 10 ml PO Q6HR Qty: 30 0RF amoxicillin-pot clavulanate 875-125 mg tablet 1 tablet PO Q12H Qty: 14 0RF Rx Instructions: Please complete the course on June 05, 2024 Continued vitamin K2 45 mcg capsule 45 mcg PO DAILY fluphenazine HCl 5 mg tablet 5 mg PO TID clorazepate dipotassium 3.75 mg tablet 3.75 mg PO TID atorvastatin 10 mg tablet 10 mg PO QHS Qty: 90 1RF aspirin 81 mg Tablet 81 mg PO DAILY multivit with min-folic acid 200 mcg Tablet,Chewable 1 tablet PO DAILY glucosamine sulfate [Glucosamine] 500 mg Tablet 1,000 mg PO DAILY phenytoin sodium extended 100 mg capsule 100 mg PO TID Qty: 270 1RF albuterol sulfate 90 mcg/actuation HFA aerosol inhaler 1 - 2 puff INHALATION Q4-6H PRN (Reason: shortness of breath or wheezing) Qty: 8.5 5RF fluticasone furoate-vilanterol [Breo Ellipta] 200-25 mcg/dose blister with device 1 inh inhalation DAILY Qty: 180 1RF Date of admission: 05/30/24 07:57 Primary Care Provider: Ana Evans Admitting Provider: Benito Correa Attending physician on admission: Benito Correa Condition: Stable
== END 2024-06-04 15:50 | disposition home health service (06) | DRG 193 ==
LOC: ANHED 05-30 03:23 → ANHIMU 05-30 04:09 → ANHICU 05-31 14:37 → ANH2MED 06-01 11:18 → ANHICU 06-06 11:49 → ANHIMU 06-06 11:49
PROVIDERS: Nurse Practitioner Family; Admitting Provider Internal Medicine; Emergency Provider Emergency Medicine; PCP Family Medicine; Visit Provider General Practice
DX: J10.1 Influenza due to other identified influenza virus with other respiratory manifestations (principal); J96.02 Acute respiratory failure with hypercapnia; J44.0 Chronic obstructive pulmonary disease with (acute) lower respiratory infection; S22.41XA Multiple fractures of ribs, right side, initial encounter for closed fracture; J18.9 Pneumonia, unspecified organism; R13.19 Other dysphagia; E78.5 Hyperlipidemia, unspecified; F20.9 Schizophrenia, unspecified; F17.210 Nicotine dependence, cigarettes, uncomplicated; G40.909 Epilepsy, unspecified, not intractable, without status epilepticus; J43.9 Emphysema, unspecified; W19.XXXA Unspecified fall, initial encounter; Z79.82 Long term (current) use of aspirin; Z99.81 Dependence on supplemental oxygen
CPT/HCPCS: 36415; 36600; 71045; 71250; 80053; 82375; 82565; 82805; 83050; 83605; 83735; 83880; 85018; 85025; 85027; 87040; 87637; 87641; 92526; 92611; 93005; 93970; 94002; 94003; 94618; 94640; 96365; 96367; 96375; 97161; 97166; 99285; A9270; G0378; J0692; J2919; J3370; J7030; J7512